=== PATIENT | female | born 1940 | race Caucasian/White ===

== ENCOUNTER 2023-10-18 23:54 | Inpatient (IN) | payer MEDICARE, OTHER, SELFPAY ==
[2023-10-18 17:43] VITALS: BP 146/72
--- NOTE | 2023-10-18 19:02 | ED.GENMED ---
History of Present Illness
General
Chief Complaint: Abdominal Pain
Source: patient
Exam Limitations: none
Time Seen by Provider: 10/18/23 18:55
Nursing documentation reviewed up to this point in time: agreed with
History of Present Illness
History of Present Illness:
pt is a 83 y/o F wth h/o dementia
here with abd pain in the site of known ventral hernia
previous partial colectomy [place] with revearsal by osmani and subsequent hernia repair osmani
chronic constipation, chronic UTIs and c/o chronic abd pain
here with hernia pain x 2 days, last bm 2 days holder and dec appetite
she self caths and is prone to utis
pt takes tramadol and tylenol for pain chronically
was at [facility] 2 mo ago and dx with new hernia which was evaluated by CT scan and not incarcerated
she has appt with her surgeon in a few weeks
no vomiting, fever, chills, nausea.
her daughter in law talked to the staff at the [facility] she [facility] at and they decided to bring her 'to be safe'
with her dementia, they aren't really sure whats new or chronic
Past History
Past History
ED Past Medical History: Asthma, HTN, Hypercholesterolemia, Psychiatric (Anxiety, depression), Other (Diverticulitis) and Other (UTI, anemia)
ED Past Surgical History: Bowel resection, Gynecological (Hysterectomy), Orthopedic (left hip, right elbow), Urological and Other (Adan procedure for perforated colon, cataracts)
Social History
Tobacco: Non-smoker
Alcohol: None
Drug: None
Personal:
Living: assisted living
Review of Systems
Review of Systems
Allergies reviewed?: Yes
All Other Systems: Not applicable
Phy Exam
Physical Exam
Physical Exam:
GENERAL: Alert , in no apparent distress
EYE: pupils equal and reactive
NECK: Supple
ENT: o/p clr, mmm.
CARDIAC: Regular rate and rhythm .
LUNGS: Clear breath sounds bilaterally, no acute respiratory distress, no wheezes/rales/rhonchi
ABDOMEN: Soft, MILD TENDERNESS L SIDED VENTRAL SMALL HERNIA, EASILY REDUCIBLE, no r/g, no cvat, normal bowel sounds
NEUROLOGICAL: Alert and oriented x 1-2, confusion, short term memory loss, movin all extremities; nmo weakness
SKIN: Warm and dry, skin intact.
MUSCULOSKELETAL: No edema, well perfused. neg diomedes's sign
PSYCH: Normal and appropriate interaction. cooperative, dementia
Course
Orders/Labs/Results
Orders:
Orders
10/18/23 19:15
CT Abd/pel W Iv And Oral Contr Urgent
Comment:
Reason For Exam: previous colectomy, hernia, pain
Iohexol [Omnipaque] See Protocol PO NOW STA
10/18/23 19:23
Complete Blood Count/With Diff Urgent
Comprehensive Metabolic Panel Urgent
Osmolality, Random Urine Urgent
Date Specimen was Collected: 10/18/23
Time Specimen was Collected: 19:16
Comment: ADD ON
Serum Osmolality Urgent
Comment: ADD ON
Urinalysis Reflex To Culture Urgent
Date Specimen was Collected: 10/18/23
Time Specimen was Collected: 19:16
Urine Microscopic Reflex Cult Urgent
Urine Sodium Urgent
Date Specimen was Collected: 10/18/23
Time Specimen was Collected: 19:16
Comment: ADD ON
Urine Culture Urgent
ELIAS Source: U
Specimen Description:
Date Specimen was Collected: 10/18/23
Time Specimen was Collected: 19:16
10/18/23 20:51
Add On- LAB Urgent
Tests Added?: serum osmolality
10/18/23 20:52
Electrocardiogram (*1) Urgent
Reason for Study: Other
Other Reason for Exam: hyperkalemia
EKG- Treatment ONCE
10/18/23 20:53
Add On- LAB Urgent
Tests Added?: urine osmolality, urine sodium
10/18/23 21:09
COVID-19 Antigen Urgent
Source: Nasal Swab
10/18/23 21:26
CefTRIAXone [Rocephin] 1,000 mg IV NOW STA
10/18/23 23:00
Flush (0.9% Sodium Chloride) [Flush (Nss)] See Dose Instructions IV PER PROTOCOL
Abnormal Lab Results
10/18/23
19:23
MCH 31.2 H pg
(27.0-31.0)
Abs Immat Gran (auto) 0.2 H 10^3/uL
(0-0.05)
Absolute Monos (auto) 1.2 H 10^3/uL
(0.1-0.6)
Immature Gran % 2.2 H %
(0-0.5)
Monocytes % 13.1 H %
(1.7-9.3)
Sodium 123 L mmol/L
(135-145)
Potassium 5.4 H mmol/L
(3.5-5.1)
Chloride 93 L mmol/L
(98-107)
Glucose 120 H mg/dl
(70-99)
Serum Osmolality 262 L mOsm/kg
(275-300)
AST 84 H U/L
(14-36)
ALT 53 H U/L
(0-35)
Ur Occult Blood Reflex 1+ A
(Negative)
Leukocyte Esterase Rfl 2+ A
(Negative)
Urine RBC 3-6 A /HPF
(0-2)
Urine WBC (Reflex) >100 A /HPF
(0-5)
Urine Osmolality 225 L mOsm/kg
(300-900)
Urine Sodium 28 L mmol/L
(30-90)
Urine Albumin (Reflex) 1+ A
(Neg - Trace)
10/18/23 19:23
10/18/23 19:23
Vital Signs
Initial and Last Documented VS:
Initial Vital Signs
Temp Pulse Resp BP Pulse Ox
98.8 F 77 17 146/72 95
10/18/23 17:43 10/18/23 17:43 10/18/23 17:43 10/18/23 17:43 10/18/23 17:43
Last Documented Vital Signs
Temp Pulse Resp BP Pulse Ox
98.3 F 80 13 140/77 95
10/19/23 01:34 10/19/23 01:15 10/19/23 01:15 10/19/23 01:00 10/19/23 01:15
MDM/Problems Addressed
Differential Diagnosis Includes:
uti, hernia, incarcerated hernia, bowel obstrucion, constipation,
MDM/Problems Addressed:
83 y/o F
remote bowel resection and colostomy with reversal
hernia repair ostomy site
now with recurrent hernia in that site x 2 mo
has had chrnoic discomfort but also is difficult historian due to dementia
cnostipation chronically as well
no fever, vomiting
family was thinkning she should be checked, she also gets UTIS, self caths
on exam she had an esasily reducible but tender L abdominal ventral hernia
normal bowel sounds
othwrise nontender
she is confused at baseline, repeats herself, seems unsure of answers
her labs show hyponatremia, mild hyperkalemia
uti
and ct shows the hernia with bowel
suggestion of possibly incarceration though her exam is not suggestive of incarceration
d/w neprhologist who recommended hypertonic saline, i did notify hositpalist
also notified marine resource economist surgeon dr. silva regarding the ct findings
*Critical Care Note
Total Time (30-74mins, 75-104mins- exclusive of procedures): Not Applicable
ED Attending Note
-
Portions of this chart may have been created with voice recognition software.� Occasional wrong word or��sound alike� substitutions may have occurred due to the inherent limitations of voice recognition software.
Discharge Plan
Departure
Patient Disposition: Admit
Date of Disposition: 10/18/23
Time of Disposition: 23:15
Admit to: Med/Surg
Presentation/result/management discussed w/ accepting MD/DO: Hospitalist
Condition: Fair
Covid-19: Not Applicable
Discharge Problem:
Abdominal hernia, UTI (urinary tract infection), Hyponatremia
Interventions
Interventions:
*Risk Screen - Suicide Last Done: 10/18/23 18:14
*General Assessment Last Done: 10/18/23 18:14
*Neglect/Abuse Screening Last Done: 10/18/23 18:14
ED- Fall Risk Assessment Last Done: 10/18/23 18:14
*ED COVID-19 Vaccine History Last Done: 10/19/23 01:25
*Nursing Disposition Last Done: 10/19/23 01:28
HW-Tjhkgo-Dufllnelgd Assessment Last Done: 10/18/23 18:14
Discharge Date and Time
Discharge Date/Time: 10/19/23 01:30
[2023-10-18] MEDS: OMNIPAQUE 50 ML PO (19:40)
[2023-10-18 20:20] VITALS: BP 142/76
[2023-10-18 20:28] LABS: % Basophils 0.6 % (0-2); % Eosinophils 2.1 % (0-6); % Immature Granulocytes 2.2 % (0-0.5); % Lymphocytes 23.3 % (20.5-51.1); % Monocytes 13.1 % (1.7-9.3); % Neutrophils 58.7 % (42.2-75.2); Absolute Basophils 0.1 10^3/uL (0-0.2); Absolute Eosinophils 0.2 10^3/uL (0-0.7); Absolute Immature Granulocytes 0.2 10^3/uL (0-0.05); Absolute Lymphocytes 2.1 10^3/uL (1.2-3.4); Absolute Monocytes 1.2 10^3/uL (0.1-0.6); Absolute Neutrophils 5.3 10^3/uL (1.4-6.5); Hematocrit 37.2 % (37.0-47.0); Hemoglobin 13.4 g/dL (12.0-16.0); Mean Corpuscular Hgb 31.2 pg (27.0-31.0); Mean Corpuscular Volume 86.5 fL (81.0-99.0); Nucleated Red Blood Cells % 0 %; Platelet Count 275 10^3/uL (130-400); Red Cell Dist. Width 12.5 % (11.5-14.5)
[2023-10-18 20:42] LABS: ALT (SGPT) 53 U/L (0-35); AST (SGOT) 84 U/L (14-36); Albumin 4.6 g/dl (3.5-5.0); Alkaline Phosphatase 77 U/L (38-126); Blood Urea Nitrogen 14 mg/dl (7-17); Calcium 9.2 mg/dl (8.4-10.2); Carbon Dioxide 22 mmol/L (22-30); Chloride 93 mmol/L (98-107); Glucose 120 mg/dl (70-99); Potassium 5.4 mmol/L (3.5-5.1); Sodium 123 mmol/L (135-145); Total Bilirubin 0.5 mg/dl (0.2-1.3); Total Protein 7.3 g/dl (6.3-8.2); eGFR > 60.00
[2023-10-18 20:47] LABS: Urine Albumin 1+ (Neg - Trace); Urine Bilirubin Negative (Negative); Urine Character Slightly Cloudy (Clear); Urine Color Yellow; Urine Glucose Negative (Negative); Urine Ketone Negative (Negative); Urine Leukocyte 2+ (Negative); Urine Nitrite Negative (Negative); Urine Occult Blood 1+ (Negative); Urine Specific Gravity 1.015 (<1.030); Urine Urobilinogen Negative (Neg - 1+)
[2023-10-18 20:55] LABS: Urine White Cell >100 /HPF (0-5)
[2023-10-18 21:10] LABS: Osmolality Serum 262 mOsm/kg (275-300); Osmolality Urine 225 mOsm/kg (300-900)
[2023-10-18 21:19] VITALS: BP 136/74
[2023-10-18 21:19] LABS: Urine Sodium 28 mmol/L (30-90)
[2023-10-18 21:32] LABS: COVID-19 Antigen Negative (Negative)
--- NOTE | 2023-10-18 21:43 | HPS.HSE ---
Family Physician
-
Family Physician: NOT KNOW UNKNOWN - PT DOES
Chief Complaint
-
Abdominal Pain x 2 days with confusion
History of Present Illness
83yo F with PMH Asthma, HTN, HLD, Ventral Hernia, Chronic Constipation, Urinary Retention/Self Caths, UTIs, Diverticulitis, Anemia, Anxiety/Depression/Dementia, Chronic Pain presents to ER from [facility] with complaint of
abdominal pain. Pt is a poor historian 2/2 dementia despite AAOx3 status. I spoke with [id number] but who also has limited histor. Pt has history of multiple abdominal surgeries including hartmanns with colostomy and reversal c/b ventral
hernia. No surgeries performed recently but she is following with a surgeon at [place] (does not recall name). Pt reports 5/10 left sided abdominal pain without N/V. Denies inability to take PO. Denies decreased fluid intake or excessive water
drinking. Pt does straight cath 2-3x daily. Denies any hematuria or known hx bladder mass, following with Dr. Bullock. Is on Chronic macrobid for UTI. Denies fever, chills, chest pain, palps, wheezing, cough, sob, dysuria, calf or leg pain/swelling.
Pt presents with V.S.S. CBC wnl. Na 123, K 5.4, BUN/Cr 14/0.7, BG 120, SOsm 262, Mariah 28, UOsm 225, AST/ALT 84/53, UA without bacteria, > 100WBC. COVID (-). Gen Surgery notified in ER. Case D/W nephrology recommending figueroa insertion and 200cc of 3%
NS @ 20cc/hr. 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
CT A/P IMPRESSION
Bowel containing left ventral hernia as described above at previous ostomy site. Decreased in size. New associated mild fluid. Developing incarceration/strangulation should be considered
Additional small fat-containing ventral hernias. No evidence of acute pathology with these. Increase in size and number.
Left bladder wall thickening and enhancement as described above raising concern for a mural mass. New. Direct visualization recommended.
Hepatic fatty infiltration. Stable
Simple right ovarian cyst. Stable. Uncommon in postmenopausal females.
Moderate fecal material throughout the colon. Stable
Tiny bilateral pleural effusions. Progressed on the left. Improved on the right.
Medical History
Past Medical History
Past Medical History: Reports Other (Asthma, HTN, HLD, Ventral Hernia, Chronic Constipation, Urinary Retention/Self Caths, UTIs, Diverticulitis, Anemia, Anxiety/Depression/Dementia, Chronic Pain)
Past Surgical History: Reports Other ([place] Procedure s/p Reversal c/b Ventral Hernia, Hysterectomy, Left Hip / Right Elbow Orthopedic Surgery, Cataracts)
Social History
Unable to obtain full social history at this time due to: Dementia
Tobacco: Non-smoker
Alcohol: None
Drug: None
Personal:
Living: Assisted Living
Family History
Family History: Not pertinent
Allergies / Home Medications
Allergies reflects when Allergies were last updated in [employer].
Home Medications with original date entered in [employer]
Allergy/Medication List:
Allergies
Allergy/AdvReac Type Severity Reaction Status Date / Time
acetaminophen [From Percocet] Allergy Hives Verified 10/18/23 17:42
belladonna alkaloids Allergy Unknown Verified 10/18/23 17:42
ciprofloxacin [From Cipro] Allergy Unknown Verified 10/18/23 17:42
codeine Allergy Unknown Verified 10/18/23 17:42
ezetimibe [From Vytorin] Allergy Unknown Verified 10/18/23 17:42
gabapentin Allergy Unknown Verified 10/18/23 17:42
oxycodone [From Percocet] Allergy Hives Verified 10/18/23 17:42
plecanatide [From Trulance] Allergy Unknown Verified 10/18/23 17:49
propoxyphene Allergy Hives Verified 10/18/23 17:42
[From Darvocet-N]
sertraline Allergy Unknown Verified 10/18/23 17:42
simvastatin [From Vytorin] Allergy Unknown Verified 10/18/23 17:42
tramadol Allergy Unknown Verified 10/18/23 17:42
Influenza Virus Vaccines AdvReac Unknown Verified 10/18/23 17:42
Home Medications
alprazolam 0.5 mg tablet 0.5 mg PO HSPRN PRN anxiety 10/12/21
aluminum-magnesium hydroxide 200 mg-200 mg/5 mL oral suspension 20 ml PO Q8HPRN PRN indigestion 10/12/21
benzonatate 100 mg capsule 100 mg PO Q8HPRN PRN cough 10/12/21
carboxymethyl 0.5 %-glycerin 1 %-polysorb 80 0.5 %-PF eye dropperette (Refresh Optive Santy-3 (PF)) 2 drp BOTH EYES BID Eye condition 10/12/21
cetirizine 10 mg tablet 10 mg PO DAILY Allergies 10/12/21
estradiol 10 mcg vaginal insert 10 mcg vaginal WESA@2200 Hormonal agent 10/12/21
eszopiclone 3 mg tablet 3 mg PO HS Sleep 10/12/21
losartan 25 mg tablet 25 mg PO DAILY Blood Pressure 10/12/21
nitrofurantoin macrocrystal 100 mg capsule 100 mg PO DAILY Urinary Issue 10/12/21
ondansetron HCl 4 mg tablet 4 mg PO [id number] PRN nausea 10/12/21
rosuvastatin 5 mg tablet 5 mg PO HS High Cholesterol 10/12/21
sennosides 8.6 mg tablet (Senokot) 8.6 mg PO QPM Constipation 10/12/21
simethicone 125 mg tablet 125 mg PO QID gas 10/12/21
acetaminophen 500 mg tablet 1,000 mg PO TID MILD PAIN 08/29/22
bismuth subsalicylate 262 mg/15 mL oral suspension 524 mg PO Q6HPRN PRN diarrhea 08/29/22
dextromethorphan HBr 30 mg/5 mL oral liquid 60 mg PO [id number] PRN cough 08/29/22
donepezil 5 mg tablet 5 mg PO HS dementia 08/29/22
fluoride (sodium) 1.1 % dental paste (PreviDent 5000 Dry Mouth) 1 applic dental BID dental care 08/29/22
ibuprofen 200 mg capsule 400 mg PO BID Pain 08/29/22
lidocaine HCl 2 % mucosal jelly in applicator 1 applic topical Q8HPRN PRN hemorrhoid pain 08/29/22
pantoprazole 20 mg tablet,delayed release 40 mg PO DAILY Gastrointestinal Issue 08/29/22
polyethylene glycol 3350 17 gram oral powder packet 8.5 grams PO DAILYPRN PRN constipation 08/29/22
tramadol 50 mg tablet 50 mg PO [id number] PRN severe pain 08/29/22
Benefiber (wheat dextrin) 1 tbsp PO [id number] PRN constipation 10/18/23
ascorbic acid (vitamin C) 500 mg tablet 500 mg PO DAILY 10/18/23
bisacodyl 10 mg rectal suppository (Dulcolax (bisacodyl)) 10 mg [place] DAILYPRN PRN constipation 10/18/23
docusate sodium 100 mg capsule 100 mg PO BIDPRN PRN constipation 10/18/23
hydrocortisone 1 % topical cream 1 applic topical PRN PRN skin conditions 10/18/23
loperamide 2 mg capsule 2 mg PO QIDPRN PRN diarrhea 10/18/23
memantine 10 mg tablet 10 mg PO BID 10/18/23
mirtazapine 45 mg tablet 45 mg PO HS 10/18/23
multivitamin with minerals-folic acid 120 mcg chewable tablet (Women's Multivitamin Gummies) 2 tab PO DAILY 10/18/23
oxybutynin chloride 5 mg tablet 5 mg PO BID 10/18/23
Review of Systems
-
A 12 point ROS was completed and negative except as noted: Yes
Physical Exam
Vital Signs
Vital Signs
Temp Pulse Resp BP Pulse Ox
98.8 F 70 18 136/74 96
10/18/23 17:43 08/02/24 21:19 10/18/23 21:19 10/18/23 21:19 10/18/23 21:19
Physical Exam
General: No Apparent Distress and Comfortable
HEENT: NormoCephalic, Atraumatic and Other (Dry MM. PERRLA. Uvula Midline. )
Respiratory: Clear; No Wheezes, Rales or Rhonchi
Cardiac: S1/S2 and Regular Rhythm
GI: Soft, Normal Bowel Sounds and Other (left sided ventral hernia, reducible. Moderate TTP. No discoloration. ); No Distended or Organomegaly
Genito-urinary: No costovertebral tender
Musculoskeletal: No Clubbing and No Cyanosis; No Edema, Left Lower Extremity or Edema, Right Lower Extremity
Skin: Warm and Dry; No Rash
Neuro: Awake, Alert, AO x 3 (AOx1 (knows name, baseline)), No Motor Deficits, Nonfocal/grossly intact and Other (pupils dilated (s/p eye exam); left eye full ptosis and full closure, cannot adduct left eye; diplopia on lateral gaze; no nystagmus, no
facial asymmetry, no pronator drift, 5/5 strength upper and lower extremities )
Psych: Calm
Laboratory Results
-
10/18/23 19:23
10/18/23 19:23
Laboratory Results
Total Bilirubin 0.5 mg/dl (0.2-1.3) 10/18/23 19:23
AST 84 U/L (14-36) H 10/18/23 19:23
ALT 53 U/L (0-35) H 10/18/23 19:23
Alkaline Phosphatase 77 U/L (38-126) 10/18/23 19:23
Data Reviewed
-
Diagnostic Radiology: Image Personally Visualized and interpreted
CT Scan: Image Personally Visualized and interpreted
Lab Data: Labs Reviewed by me
Old Records: Reviewed
Impression/Plan
-
Hyponatremia, Severe
- Na 123 on admission.
- Urine Osm 262, Ua Na 28, U Osm 225, hypoosmotic hyponatremia
- Holding tramadol and nsaids
- Goal 6-8 meq/24hr improvement.
- Nephrology consulted. 3% NS - 200cc total at 20cc/hr. Trend Q4h BMP
- NPO for now. 1200cc fluid restriction when advanced.
- Figueroa inserted for critical I&O monitoring
Pt presents with V.S.S. CBC wnl. Na 123, K 5.4, BUN/Cr 14/0.7, BG 120, SOsm 262, Mariah 28, UOsm 225, AST/ALT 84/53, UA without bacteria, > 100WBC. COVID (-). Gen Surgery notified in ER. Case D/W nephrology recommending figueroa insertion and 200cc of 3%
NS @ 20cc/hr. 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
AMS / Hx Dementia
- AAOx3 with poor insight and knowledge of medical history
- Likely acute/chronic exacerbated by hyponatremia. Trend for improvement
- Continue home donepezil
Abdominal Pain
Constipation
Ventral Hernia
- CT A/P IMPRESSION
Bowel containing left ventral hernia as described above at previous ostomy site. Decreased in size. New associated mild fluid. Developing incarceration/strangulation should be considered
Additional small fat-containing ventral hernias. No evidence of acute pathology with these. Increase in size and number.
Left bladder wall thickening and enhancement as described above raising concern for a mural mass. New. Direct visualization recommended.
Hepatic fatty infiltration. Stable
Simple right ovarian cyst. Stable. Uncommon in postmenopausal females.
Moderate fecal material throughout the colon. Stable
Tiny bilateral pleural effusions. Progressed on the left. Improved on the right.
- Obtain Stat LA and trend for AM
- AST/ALT 84/53. Trend for AM with Coags. Hold Statin
- Consult Gen Surgery
- Initiate bowel regimen when appropriate from surgical standpoint
- Obtain Urine Legionella for completeness in setting of hyponatremia/abdominal pain
Transaminitis
- AST/ALT 84/53. Likely hypoperfusion injury in setting of dehydration
- Trend LFTs. Hold statin.
Bladder Mass - CT imaging reviewed. Consult urology. Family denies any known history.
HTN/HLD
- Stable on home losartan
- Hold statin 2/2 mild transaminitis
Asthma - Stable on home Flonase/albuterol/IS.
Urinary Retention with Chronic UTI history
- Hx Recurrent UTI. Afebrile. No leukocytosis
- UA consistent with sterile pyuria. No indication for abx at this time.
- Continue prophylactic macrobid
- Straight caths 2-3x daily. Figueroa inserted per nephro recs for hyponatremia.
Anxiety/Depression
- Continue home Remeron and risperidone
Chronic Pain
- Hold tramadol and nsaids 2/2 hyponatremia
DVT Ppx: Lovenox
Diet: NPO
Code Status: Full Code. Confirmed with DIL
- Patient states her son Darian Jain and MIRANDA Floresise [place] (nurse) make decisions for her.
[2023-10-18] MEDS: ROCEPHIN 1000 MG IV (21:50)
[2023-10-18 23:13] VITALS: BP 155/83
[2023-10-19] VITALS (16 sets, daily range): BP systolic 118–168; BP diastolic 49–83; PULSE 82; O2SAT 95; BMI 29.7; BMI 28.7
[2023-10-19 00:43] LABS: Lactic Acid 1.6 mmol/L (0.7-2.0)
[2023-10-19 00:44] LABS: Blood Urea Nitrogen 11 mg/dl (7-17); Calcium 8.1 mg/dl (8.4-10.2); Carbon Dioxide 21 mmol/L (22-30); Chloride 97 mmol/L (98-107); Estimated Creatinine Clearance 69 ml/min; Glucose 113 mg/dl (70-99); Potassium 4.4 mmol/L (3.5-5.1); Sodium 126 mmol/L (135-145); eGFR > 60.00
[2023-10-19] MEDS: SODIUM CHLORIDE 3% 200 IV (01:02)
[2023-10-19 01:12] LABS: Creatine Phosphokinase 245 U/L (30-135)
[2023-10-19 04:01] LABS: % Basophils 0.7 % (0-2); % Immature Granulocytes 2.5 % (0-0.5); % Lymphocytes 18.9 % (20.5-51.1); % Monocytes 11.8 % (1.7-9.3); % Neutrophils 64.1 % (42.2-75.2); Absolute Basophils 0.1 10^3/uL (0-0.2); Absolute Eosinophils 0.1 10^3/uL (0-0.7); Absolute Immature Granulocytes 0.2 10^3/uL (0-0.05); Absolute Lymphocytes 1.3 10^3/uL (1.2-3.4); Absolute Monocytes 0.8 10^3/uL (0.1-0.6); Absolute Neutrophils 4.4 10^3/uL (1.4-6.5); Hematocrit 38.4 % (37.0-47.0); Hemoglobin 13.6 g/dL (12.0-16.0); Mean Corp Hgb Conc. 35.4 g/dL (33.0-37.0); Mean Corpuscular Hgb 31.7 pg (27.0-31.0); Mean Corpuscular Volume 89.5 fL (81.0-99.0); Mean Platelet Volume 8.6 fL (7.4-10.4); Nucleated Red Blood Cells % 0 %; Platelet Count 233 10^3/uL (130-400); Red Blood Cell Count 4.29 10^6/uL (4.20-5.40); Red Cell Dist. Width 12.3 % (11.5-14.5); White Blood Cell Count 6.8 10^3/uL (4.8-10.8)
[2023-10-19 04:10] LABS: APTT 33.3 Sec (23.4-35.0); INR 1.04; PT 13.4 Sec (11.4-14.6)
--- NOTE | 2023-10-19 04:15 | PTCARENOTE ---
Pt received as IMU admission for hyponatremia and abd pain. AAOx3. Able with assist to walk from stretcher to bed. Pleasantly confused/forgetful/flat. Repeats herself at times. 3% NS infusing at 20ml/hr for total of 200mls. Admits to [facility] pain 09/24
but denies need for pain medicine. Hypoactive BS on left side. Tender to touch. SR on CM. Afebrile. VSS. Stearns intact from ED draining yellow urine. Skin intact. Rest of assessment as documented. AM labs obtained and sent. Bed alarm on and working.
Oriented to room and surroundings. Call saab remains within reach. Will continue to monitor.
[2023-10-19 04:19] LABS: ALT (SGPT) 52 U/L (0-35); AST (SGOT) 73 U/L (14-36); Albumin 4.3 g/dl (3.5-5.0); Alkaline Phosphatase 85 U/L (38-126); Blood Urea Nitrogen 10 mg/dl (7-17); Calcium 9.1 mg/dl (8.4-10.2); Carbon Dioxide 25 mmol/L (22-30); Chloride 96 mmol/L (98-107); Estimated Creatinine Clearance 68 ml/min; Glucose 117 mg/dl (70-99); Lipase 177 U/L (23-300); Sodium 128 mmol/L (135-145); Total Bilirubin 0.5 mg/dl (0.2-1.3); Total Protein 6.8 g/dl (6.3-8.2); eGFR > 60.00
[2023-10-19 04:21] LABS: Blood Urea Nitrogen 11 mg/dl (7-17); Calcium 9.1 mg/dl (8.4-10.2); Carbon Dioxide 24 mmol/L (22-30); Chloride 96 mmol/L (98-107); Estimated Creatinine Clearance 68 ml/min; Glucose 115 mg/dl (70-99); Sodium 128 mmol/L (135-145); eGFR > 60.00
[2023-10-19 04:23] LABS: Blood Urea Nitrogen 10 mg/dl (7-17); Calcium 9.1 mg/dl (8.4-10.2); Carbon Dioxide 24 mmol/L (22-30); Chloride 96 mmol/L (98-107); Estimated Creatinine Clearance 68 ml/min; Glucose 116 mg/dl (70-99); Potassium 5.1 mmol/L (3.5-5.1); Sodium 128 mmol/L (135-145); eGFR > 60.00
[2023-10-19 04:51] LABS: TSH 2.33 uIU/ml (0.47-4.68)
--- NOTE | 2023-10-19 04:58 | W.PN.UPDATE ---
Update Note
Progress Note Update
Review of Na trends on 3% NS @ 20cc/hr. Admission 123 -> 126 -> 128. Given rapid correction discussed with nursing plan to stop 3%NS and give 250cc D5W bolus. Will follow repeat BMPs before initiating further treatment. Appreciate nephro recs to
follow.
[2023-10-19] MEDS: D5W 250 IV (05:10)
--- NOTE | 2023-10-19 05:17 | PTCARENOTE ---
Pt's Na+ this am 128 up from 123 when in ED where 3% NS infusion initiated. Received TT from Dr Ruffin to stop 3% and give 250ml bolus of D5W over 1hr. 3% stopped and D5W infusing as ordered. Will continue to monitor.
--- NOTE | 2023-10-19 08:52 | W.CON.NEPH ---
Consultation
-
Date/Time Consultation Requested: 10/19/2023 7:30 AM
Date/Time Consultation Performed: 10/19/2023 8:55 AM
Requesting Provider: Dr. Chao
Performing Provider: Dr. Noel
Reason for Consultation: Hyponatremia
Medical History
-
Chief Complaint: Hyponatremia
History of Present Illness:
83yo F with PMH Asthma, HTN (maintain on losartan) HLD (on statin therapy), Ventral Hernia, Chronic Constipation, Urinary Retention(/Self Caths), UTIs, Diverticulitis, Anemia, Anxiety/Depression/Dementia, Chronic Pain presents to ER from [facility]
assisted living facility with complaint of abdominal pain. Pt is a poor historian 2/2 dementia despite AAOx3 status. I spoke with [id number] but who also has limited histor. Pt has history of multiple abdominal surgeries including hartmanns
with colostomy and reversal c/b ventral hernia. No surgeries performed recently but she is following with a surgeon at [place] (does not recall name). Pt reports 5/10 left sided abdominal pain without N/V. Denies inability to take PO. Denies
decreased fluid intake or excessive water drinking. Pt does straight cath 2-3x daily. Denies any hematuria or known hx bladder mass, following with Dr. Bullock. Is on Chronic macrobid for UTI. Denies fever, chills, chest pain, palps, wheezing,
cough, sob, dysuria, calf or leg pain/swelling.
Pt presents with V.S.S. CBC wnl. Na 123, K 5.4, BUN/Cr 14/0.7, BG 120, SOsm 262, Mariah 28, UOsm 225, AST/ALT 84/53, UA without bacteria, > 100WBC. COVID (-). Gen Surgery notified in ER. Case D/W nephrology recommending figueroa insertion and 250cc of 3%
NS @ 20cc/hr. 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
Past Medical History
(Asthma, HTN, HLD, Ventral Hernia, Chronic Constipation, Urinary Retention/Self Caths, UTIs, Diverticulitis, Anemia, Anxiety/Depression/Dementia, Chronic Pain)
Social History
Tobacco: Non-Smoker
Alcohol: None
Family History
No CKD
Allergies / Home Medications
Allergy/AdvReac Type Severity Reaction Status Date / Time
acetaminophen [From Percocet] Allergy Hives Verified 10/18/23 17:42
belladonna alkaloids Allergy Unknown Verified 10/18/23 17:42
ciprofloxacin [From Cipro] Allergy Unknown Verified 10/18/23 17:42
codeine Allergy Unknown Verified 10/18/23 17:42
ezetimibe [From Vytorin] Allergy Unknown Verified 10/18/23 17:42
gabapentin Allergy Unknown Verified 10/18/23 17:42
oxycodone [From Percocet] Allergy Hives Verified 10/18/23 17:42
plecanatide [From Trulance] Allergy Unknown Verified 10/18/23 17:49
propoxyphene Allergy Hives Verified 10/18/23 17:42
[From Darvocet-N]
sertraline Allergy Unknown Verified 10/18/23 17:42
simvastatin [From Vytorin] Allergy Unknown Verified 10/18/23 17:42
tramadol Allergy Unknown Verified 10/18/23 17:42
Influenza Virus Vaccines AdvReac Unknown Verified 10/18/23 17:42
�Medication �Instructions �Recorded �Confirmed �Type
alprazolam 0.5 mg tablet 0.5 mg PO HSPRN PRN anxiety 10/12/21 10/18/23 History
aluminum-magnesium hydroxide 200 20 ml PO Q8HPRN PRN indigestion 10/12/21 10/18/23 History
mg-200 mg/5 mL oral suspension
benzonatate 100 mg capsule 100 mg PO Q8HPRN PRN cough 10/12/21 10/18/23 History
carboxymethyl 0.5 %-glycerin 1 2 drp BOTH EYES BID Eye condition 10/12/21 10/18/23 History
%-polysorb 80 0.5 %-PF eye
dropperette (Refresh Optive Santy-3
(PF))
cetirizine 10 mg tablet 10 mg PO DAILY Allergies 10/12/21 10/18/23 History
estradiol 10 mcg vaginal insert 10 mcg vaginal WESA@2200 Hormonal 10/12/21 10/18/23 History
agent
eszopiclone 3 mg tablet 3 mg PO HS Sleep 10/12/21 10/18/23 History
losartan 25 mg tablet 25 mg PO DAILY Blood Pressure 10/12/21 10/18/23 History
nitrofurantoin macrocrystal 100 mg 100 mg PO DAILY Urinary Issue 10/12/21 10/18/23 History
capsule
ondansetron HCl 4 mg tablet 4 mg PO [id number] PRN nausea 10/12/21 10/18/23 History
rosuvastatin 5 mg tablet 5 mg PO HS High Cholesterol 10/12/21 10/18/23 History
sennosides 8.6 mg tablet (Senokot) 8.6 mg PO QPM Constipation 10/12/21 10/18/23 History
simethicone 125 mg tablet 125 mg PO QID gas 10/12/21 10/18/23 History
acetaminophen 500 mg tablet 1,000 mg PO TID MILD PAIN 08/29/22 10/18/23 History
bismuth subsalicylate 262 mg/15 mL 524 mg PO Q6HPRN PRN diarrhea 08/29/22 10/18/23 History
oral suspension
dextromethorphan HBr 30 mg/5 mL 60 mg PO [id number] PRN cough 08/29/22 10/18/23 History
oral liquid
donepezil 5 mg tablet 5 mg PO HS dementia 08/29/22 10/18/23 History
fluoride (sodium) 1.1 % dental 1 applic dental BID dental care 08/29/22 10/18/23 History
paste (PreviDent 5000 Dry Mouth)
ibuprofen 200 mg capsule 400 mg PO BID Pain 08/29/22 10/18/23 History
lidocaine HCl 2 % mucosal jelly in 1 applic topical Q8HPRN PRN 08/29/22 10/18/23 History
applicator hemorrhoid pain
pantoprazole 20 mg tablet,delayed 40 mg PO DAILY Gastrointestinal 08/29/22 10/18/23 History
release Issue
polyethylene glycol 3350 17 gram 8.5 grams PO DAILYPRN PRN 08/29/22 10/18/23 History
oral powder packet constipation
tramadol 50 mg tablet 50 mg PO [id number] PRN severe pain 08/29/22 10/18/23 History
Benefiber (wheat dextrin) 1 tbsp PO [id number] PRN constipation 10/18/23 10/18/23 History
ascorbic acid (vitamin C) 500 mg 500 mg PO DAILY 10/18/23 10/18/23 History
tablet
bisacodyl 10 mg rectal suppository 10 mg [place] DAILYPRN PRN constipation 10/18/23 10/18/23 History
(Dulcolax (bisacodyl))
docusate sodium 100 mg capsule 100 mg PO BIDPRN PRN constipation 10/18/23 10/18/23 History
hydrocortisone 1 % topical cream 1 applic topical PRN PRN skin 10/18/23 10/18/23 History
conditions
loperamide 2 mg capsule 2 mg PO QIDPRN PRN diarrhea 10/18/23 10/18/23 History
memantine 10 mg tablet 10 mg PO BID 10/18/23 10/18/23 History
mirtazapine 45 mg tablet 45 mg PO HS 10/18/23 10/18/23 History
multivitamin with minerals-folic 2 tab PO DAILY 10/18/23 10/18/23 History
acid 120 mcg chewable tablet
(Women's Multivitamin Gummies)
oxybutynin chloride 5 mg tablet 5 mg PO BID 10/18/23 10/18/23 History
Review of Systems
-
History Source: Patient
All other systems: Negative unless noted
Constitutional: Fatigue
EENT: No Symptoms
Respiratory: No Symptoms
Cardiac: No Symptoms
Abdomen/GI: Abdominal Pain (Left lower quadrant with ventral hernia) and Pain (Left lower quadrant pain)
: Other (Chronic urinary retention requiring straight catheterization twice daily)
Musculoskeletal: No Symptoms
Skin: No Symptoms
Neurological: No Symptoms
Endocrine: No Symptoms
Hematologic/Lymphatic: No Symptoms
Physical Exam
Vital Signs
Vital Signs
Temp Pulse Resp BP Pulse Ox
98.3 F 76 14 138/49 92
10/19/23 03:56 10/19/23 06:00 10/19/23 06:00 10/19/23 06:00 10/19/23 06:00
Lab Results
10/19/23 03:51
WBC 6.8 10^3/uL (4.8-10.8) 10/19/23 03:51
RBC 4.29 10^6/uL (4.20-5.40) 10/19/23 03:51
Hgb 13.6 g/dL (12.0-16.0) 10/19/23 03:51
Hct 38.4 % (37.0-47.0) 10/19/23 03:51
Plt Count 233 10^3/uL (130-400) 10/19/23 03:51
eGFR > 60.00 10/19/23 03:50
eGFR > 60.00 10/19/23 03:50
eGFR > 60.00 10/19/23 03:50
Albumin 4.3 g/dl (3.5-5.0) 10/19/23 03:50
Physical Exam
General: AOx3, Nontoxic , NAD
HEENT: PERRL, EOMI, Anicteric, Conjunctivae Clear, Ear/Nose Intact, Hearing Normal, Oropharynx Clear/Moist, Dentition Intact, Facial Symmetry, Neck Supple, Neck: Trachea Midline, No JVD and No Thyromegaly, no Bruits
Respiratory: Clear to auscultation bilaterally with normal lung exersion
Cardiac: S1/S2 and Regular Rate/Rhythm
Breast: Deferred by me
Abdomen: Soft, tender at left lower quadrant with ventral herniation, nondistended, Normal Bowel Sounds and No Hepatosplenomegaly
Rectal: Deferred by Provider
Genito-urinary: No Costovertebral Tenderness
Extremities: No Clubbing, No Cyanosis and No Edema
Skin: No Rash or open lesions
Neuro: Nonfocal/Grossly Intact, CN II-XII (Intact) and Strength (Musculoskeletal exam 5 out of 5 both upper and lower extremities)
Hematologic/Lymphatic: No Cervical Lymphadenopathy, No Submandibular Lymphadenopathy and No Supraclavicular Lymphadenopathy
Psych: Mood/afflect pleasant, Insight/judgement good and Appropriate
Vascular: plus 1 pedal and radial pulses
Data Reviewed
-
CT Scan: Report Reviewed by me (CT reviewed: Left ventral hernia, no hydronephrosis)
Medical Tests (Nuc Med, Echo etc): Other (EKG reviewed normal sinus rhythm with sinus arrhythmia at 70 bpm per personal review)
Labs: Labs Reviewed by me (BMP CBC, urine osmolality 225)
Old Records: Reviewed (Reviewed previous serum sodium from date 08/30/2022 sodium 135)
Assessment/Plan
-
Impression:
Hyponatremia
Abdominal pain with left ventral hernia
Bladder mass
Dementia
Hypertension
Asthma
Urinary retention with chronic UTI with self-catheterization
Anxiety and depression
Plan:
Hyponatremia:
-Serum sodium from 123-128 following 3% administration
-Maintain fluid restrict once po at 48oz
-Maintain Figueroa catheter
-Urine osmolality of 225 only notes partial excess ADH in setting of hyponatremia
-Recheck lites this afternoon at 3 PM
-I am concerned that hyponatremia may be a function of inadequate urine output due to limited self-catheterization
HTN:
-Okay to maintain losartan once p.o.
[2023-10-19] MEDS: DITROPAN 5 MG PO ×2 (09:29→21:08)
[2023-10-19] MEDS: COZAAR 25 MG PO (09:29)
[2023-10-19] MEDS: PROTONIX 40 MG PO (09:29)
[2023-10-19] MEDS: VITAMIN C 500 MG PO (09:29)
[2023-10-19] MEDS: NAMENDA 10 MG PO ×2 (09:29→21:07)
[2023-10-19] MEDS: MYLICON 120 MG PO ×4 (09:30→22:08)
[2023-10-19] MEDS: TYLENOL 1000 MG PO ×2 (09:32→21:12)
[2023-10-19 09:33] LABS: Blood Urea Nitrogen 10 mg/dl (7-17); Carbon Dioxide 25 mmol/L (22-30); Chloride 97 mmol/L (98-107); Estimated Creatinine Clearance 68 ml/min; Glucose 103 mg/dl (70-99); Potassium 4.8 mmol/L (3.5-5.1); Sodium 128 mmol/L (135-145); eGFR > 60.00
[2023-10-19] MEDS: THERAGRAN 1 TABLET PO (09:34)
[2023-10-19] MEDS: ZYRTEC 10 MG PO (09:35)
[2023-10-19] MEDS: REFRESH CELLUVISC GEL 2 DROPS BOTH EYES ×2 (09:35→21:07)
[2023-10-19] MEDS: MACROBID 100 MG PO (09:35)
--- NOTE | 2023-10-19 11:50 | W.PN.URO.CBU ---
Today's Communication / Plan
-
keep figueroa but may remove anytime but then will need to do cic bid as she does at home
Assessment / Plan
-
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
Diagnosis
-
Date of Service: October 19, 2023
-
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
Post Op Day:
Subjective
-
no gu sxs no hematuira no flank pain
Objective
-
Vital Signs
Temp Pulse Resp BP Pulse Ox
98.4 F 76 14 138/49 92
10/19/23 07:01 10/19/23 06:00 10/19/23 06:00 10/19/23 06:00 10/19/23 06:00
Intake and Output
10/18/23 10/19/23 10/20/23
06:59 06:59 06:59
Output Total 900 / 900
Balance -900 / -900
Output:
Urine, Figueroa 900 / 900
Laboratory Results
10/19/23 03:51
Review of Systems
-
: Difficulty Voiding
Physical Exam
-
General - well developed, well nourished, no acute distress
Chest - clear bilaterally
Abdomen - soft, non-tender, positive bowel sounds, no CVAT, no incisional pain or distention
Genitalia - normal
Rectal - normal
Skin - warm & dry with no rash
Neuro - AOx3, no motor deficits
Extremities - no clubbing, no cyanosis, no edema
Incision - clean, dry
Dressing - clean, dry, intact
Care Review
Data Reviewed
Discussed with: Hospitalist and Nursing
CT Scan: Image Pers Reviewed
--- NOTE | 2023-10-19 14:06 | W.PN.HOSP.TC ---
Today's Communication/Plan
-
monitor bmp
restart diet
maintain figueroa
Assessment / Plan
Assessment / Plan
Physical Exam
General: No Apparent Distress and Comfortable
HEENT: NormoCephalic, Atraumatic and Other (Dry MM. PERRLA. Uvula Midline. )
Respiratory: Clear; No Wheezes, Rales or Rhonchi
Cardiac: S1/S2 and Regular Rhythm
GI: Soft, Normal Bowel Sounds and Other (left sided ventral hernia, reducible. Moderate TTP. No discoloration. ); No Distended or Organomegaly
Genito-urinary: No costovertebral tender
Musculoskeletal: No Clubbing and No Cyanosis; No Edema, Left Lower Extremity or Edema, Right Lower Extremity
Skin: Warm and Dry; No Rash
Neuro: Awake, Alert, AO x 3 (AOx1 (knows name, baseline)), No Motor Deficits, Nonfocal/grossly intact and Other (pupils dilated (s/p eye exam); left eye full ptosis and full closure, cannot adduct left eye; diplopia on lateral gaze; no nystagmus, no
facial asymmetry, no pronator drift, 5/5 strength upper and lower extremities )
Psych: Calm
Hyponatremia, Severe
-Possible SIADH
--Maintain fluid restrict once po at 48oz
-Maintain Figueroa catheter
-Monitor BMP
- Holding tramadol and nsaids
- Goal 6-8 meq/24hr improvement.
-Fluid Restriction
Acute on Chronic Metabolic Encephalopathy
Hx Dementia
- AAOx3 with poor insight and knowledge of medical history
- Likely acute/chronic exacerbated by hyponatremia. Trend for improvement
- Continue home donepezil
Abdominal Pain
Ventral Hernia
- CT A/P IMPRESSION
Bowel containing left ventral hernia as described above at previous ostomy site. Decreased in size. New associated mild fluid.
- Hold Statin
-Monitor LFTs
- Overnight Consuled Gen Surgery: although doubt any surgical intervention at this time; can f/u outpatient
Transaminitis
- AST/ALT 84/53.
- Trend LFTs. Hold statin.
Bladder Mass - CT imaging reviewed.
-Consult urology. Family denies any known history.
-F/u outpatient for cysto
HTN/HLD
- Stable on home losartan
- Hold statin 2/2 mild transaminitis
Asthma - Stable on home Flonase/albuterol/IS.
Urinary Retention with Chronic UTI history
- Hx Recurrent UTI. Afebrile. No leukocytosis
- UA consistent with sterile pyuria. No indication for abx at this time.
- Continue prophylactic macrobid
- Straight caths 2-3x daily. Figueroa inserted per nephro recs for hyponatremia.
Anxiety/Depression
- Continue home Remeron and risperidone
Chronic Pain
- Hold tramadol and nsaids 2/2 hyponatremia
DVT Ppx: Lovenox
Diet: Chol Lowering/48 ox restriction
Code Status: Full Code. Confirmed with DIL
- Patient states her son Darian Jain and MIRANDA Floresise [place] (nurse) make decisions for her.
Anticipated Discharge: > 48 hours
Subjective/Interval History
-
Date of Service: October 19, 2023
no acute events
Objective Data
-
Labs:
Laboratory Results
10/19/23 10/19/23 10/19/23
03:50 03:50 03:50
WBC
Hgb
Hct
Plt Count
PT 13.4
INR 1.04
APTT 33.3
Sodium 128 L 128 L 128 L
Potassium 5.0
Chloride
Carbon Dioxide
BUN
Creatinine
Glucose
Calcium
Total Bilirubin
AST
ALT
Alkaline Phosphatase
10/19/23 10/19/23 10/19/23
03:50 03:50 03:50
WBC
Hgb
Hct
Plt Count
PT
INR
APTT
Sodium
Potassium 5.1 5.0
Chloride 96 L 96 L
Carbon Dioxide
BUN
Creatinine
Glucose
Calcium
Total Bilirubin
AST
ALT
Alkaline Phosphatase
10/19/23 10/19/23 10/19/23
03:50 03:50 03:50
WBC
Hgb
Hct
Plt Count
PT
INR
APTT
Sodium
Potassium
Chloride 96 L
Carbon Dioxide
BUN 11
Creatinine
Glucose
Calcium
Total Bilirubin
AST
ALT
Alkaline Phosphatase
10/19/23 10/19/23 10/19/23
03:50 03:50 03:50
WBC
Hgb
Hct
Plt Count
PT
INR
APTT
Sodium
Potassium
Chloride
Carbon Dioxide
BUN 10 10
Creatinine 0.6 0.6
Glucose
Calcium
Total Bilirubin
AST
ALT
Alkaline Phosphatase
10/19/23 10/19/23 10/19/23
03:50 03:50 03:50
WBC
Hgb
Hct
Plt Count
PT
INR
APTT
Sodium
Potassium
Chloride
Carbon Dioxide
BUN
Creatinine 0.6
Glucose 115 H 116 H 117 H
Calcium 9.1
Total Bilirubin
AST
ALT
Alkaline Phosphatase
10/19/23 10/19/23 10/19/23
03:50 03:50 03:51
WBC 6.8
Hgb 13.6
Hct 38.4
Plt Count 233
PT
INR
APTT
Sodium
Potassium
Chloride
Carbon Dioxide
BUN
Creatinine
Glucose
Calcium 9.1 9.1
Total Bilirubin 0.5
AST 73 H
ALT 52 H
Alkaline Phosphatase 85
10/19/23 10/19/23 10/19/23
08:47 13:42 13:42
WBC
Hgb
Hct
Plt Count
PT
INR
APTT
Sodium 128 L Pending Pending
Potassium 4.8 Pending
Chloride 97 L
Carbon Dioxide 25
BUN 10
Creatinine 0.6
Glucose 103 H
Calcium 9.0
Total Bilirubin
AST
ALT
Alkaline Phosphatase
10/19/23 10/19/23 10/19/23
13:42 13:42 13:42
WBC
Hgb
Hct
Plt Count
PT
INR
APTT
Sodium
Potassium Pending
Chloride Pending Pending
Carbon Dioxide Pending Pending
BUN Pending
Creatinine Pending
Glucose Pending
Calcium Pending
Total Bilirubin
AST
ALT
Alkaline Phosphatase
Vital Signs:
Vital Signs
Temp Pulse Resp BP Pulse Ox
98.3 F 75 13 131/68 93
10/19/23 11:49 10/19/23 12:00 10/19/23 12:00 10/19/23 12:00 10/19/23 12:00
I&O
10/18/23 10/19/23 10/20/23
06:59 06:59 06:59
Output Total 900 / 900 600 / 600
Balance -900 / -900 -600 / -600
Review of Systems
-
History Source: Patient
All other systems: Not reviewed unless documented
Data Reviewed
-
CT Scan: Image personally visualized and interpreted and Report Reviewed by me
Labs: Labs Reviewed by me
[2023-10-19 14:09] LABS: Carbon Dioxide 23 mmol/L (22-30); Chloride 95 mmol/L (98-107); Potassium 4.8 mmol/L (3.5-5.1); Sodium 127 mmol/L (135-145)
[2023-10-19 14:11] LABS: Blood Urea Nitrogen 10 mg/dl (7-17); Calcium 9.2 mg/dl (8.4-10.2); Carbon Dioxide 25 mmol/L (22-30); Chloride 96 mmol/L (98-107); Estimated Creatinine Clearance 68 ml/min; Glucose 102 mg/dl (70-99); Potassium 4.8 mmol/L (3.5-5.1); Sodium 126 mmol/L (135-145); eGFR > 60.00
--- NOTE | 2023-10-19 14:39 | CON.GS ---
Addendum entered and electronically signed by Cruz Álvarez MD 10/19/23 15:53:
Patient seen and examined with nurse practitioner. Agree with documented consultation with additions noted here. Also discussed with patient's [id number] who is significantly involved in patient's care.
History limited by patient's history of dementia. She [facility] in a [facility] facility. She has had intermittent abdominal pains but she was brought into the emergency department for evaluation of worsening confusion compared to baseline not
specifically an acute abdominal event or acute abdominal pain. Patient states that she has had a hernia that she has been following expectantly. Her [id number] states that she underwent operative correction about a year ago at [facility] but it
has recurred. Patient currently scheduled to return to her prior hernia surgeon for evaluation in October.
AFVSS
NAD, AAO to self and hospital but poor historian with some confusion
ABD: Soft, nondistended, nontender, periumbilical hernia and left sided old ostomy site incisional hernia are essentially reduced in supine position
Assessment/plan: 83-year-old female admitted with worsening mental status compared to baseline found to be hyponatremic
General surgery consultation for incidental radiographic finding of a left old ostomy site incisional hernia that the family and patient are aware of.
There are no clinical signs of incarceration, obstruction or strangulation.
Hernia is essentially spontaneously reduced while lying down but noted with movement or standing.
Discussed with her [id number]-[id number] in detail. Continue with plan for outpatient surgical follow-up either at [facility] or [id number] mention that it may be easier for patient to continue future surgical care for her hernia locally in which case
I offered follow-up with myself as an outpatient.
Signing off
Please call if can be of further assistance with patient surgical care.
Original Note:
Consultation
-
Date/Time Consultation Requested: 10/19/23 0004
Requesting Provider: Laly
Reason for Consultation: ventral hernia, r/o incarceration
Medical History
-
Chief Complaint: Confusion
History of Present Illness:
Ms Fako is an 83 yo female with a h/o dementia, hysterectomy, bladder repair surgery after childbirth with chronic urinary retention with CIC BID, ex lap for KRISTAN, perforated diverticulitis with Adan's procedure at [facility] in 2020 with colostomy
reversal in 2021 with known ventral hernia who presented through the ED with worsening confusion with hyponatremia noted. She is able to provide some history, but not clear on all the details. She notes that she has known about her hernia for some
time and it has been a little sore. She denies nausea or vomiting. She denies difficulty with stools.
Past Medical History
Past Medical History: Diverticulitis, HTN, Hypercholesterolemia and Other (asthma, chronic constipation, urinary retention: self caths, UTI's, anemia, chronic pain, Alzheimer's dementia, IBS, major depression)
Past Surgical History: Bowel Resection (Adan's with colostomy creation (12/2020) and subsequent reversal (05/2021)), Gynecological (hysterectomy), Orthopedic (THR x2), Urological (Bladder repair after childbirth) and Other (Ex Lap KRISTAN)
Social History
Tobacco: Non-Smoker
Alcohol: None
Personal:
Living: Assisted Living
Family History
Family History: Reviewed & Not Pertinent
Allergies / Home Medications
Allergy/AdvReac Type Severity Reaction Status Date / Time
acetaminophen [From Percocet] Allergy Hives Verified 10/18/23 17:42
belladonna alkaloids Allergy Unknown Verified 10/18/23 17:42
ciprofloxacin [From Cipro] Allergy Unknown Verified 10/18/23 17:42
codeine Allergy Unknown Verified 10/18/23 17:42
ezetimibe [From Vytorin] Allergy Unknown Verified 10/18/23 17:42
gabapentin Allergy Unknown Verified 10/18/23 17:42
oxycodone [From Percocet] Allergy Hives Verified 10/18/23 17:42
plecanatide [From Trulance] Allergy Unknown Verified 10/18/23 17:49
propoxyphene Allergy Hives Verified 10/18/23 17:42
[From Darvocet-N]
sertraline Allergy Unknown Verified 10/18/23 17:42
simvastatin [From Vytorin] Allergy Unknown Verified 10/18/23 17:42
tramadol Allergy Unknown Verified 10/18/23 17:42
Influenza Virus Vaccines AdvReac Unknown Verified 10/18/23 17:42
�Medication �Instructions �Recorded �Confirmed �Type
alprazolam 0.5 mg tablet 0.5 mg PO HSPRN PRN anxiety 10/12/21 10/18/23 History
aluminum-magnesium hydroxide 200 20 ml PO Q8HPRN PRN indigestion 10/12/21 10/18/23 History
mg-200 mg/5 mL oral suspension
benzonatate 100 mg capsule 100 mg PO Q8HPRN PRN cough 10/12/21 10/18/23 History
carboxymethyl 0.5 %-glycerin 1 2 drp BOTH EYES BID Eye condition 10/12/21 10/18/23 History
%-polysorb 80 0.5 %-PF eye
dropperette (Refresh Optive Santy-3
(PF))
cetirizine 10 mg tablet 10 mg PO DAILY Allergies 10/12/21 10/18/23 History
estradiol 10 mcg vaginal insert 10 mcg vaginal WESA@2200 Hormonal 10/12/21 10/18/23 History
agent
eszopiclone 3 mg tablet 3 mg PO HS Sleep 10/12/21 10/18/23 History
losartan 25 mg tablet 25 mg PO DAILY Blood Pressure 10/12/21 10/18/23 History
nitrofurantoin macrocrystal 100 mg 100 mg PO DAILY Urinary Issue 10/12/21 10/18/23 History
capsule
ondansetron HCl 4 mg tablet 4 mg PO [id number] PRN nausea 10/12/21 10/18/23 History
rosuvastatin 5 mg tablet 5 mg PO HS High Cholesterol 10/12/21 10/18/23 History
sennosides 8.6 mg tablet (Senokot) 8.6 mg PO QPM Constipation 10/12/21 10/18/23 History
simethicone 125 mg tablet 125 mg PO QID gas 10/12/21 10/18/23 History
acetaminophen 500 mg tablet 1,000 mg PO TID MILD PAIN 08/29/22 10/18/23 History
bismuth subsalicylate 262 mg/15 mL 524 mg PO Q6HPRN PRN diarrhea 08/29/22 10/18/23 History
oral suspension
dextromethorphan HBr 30 mg/5 mL 60 mg PO [id number] PRN cough 08/29/22 10/18/23 History
oral liquid
donepezil 5 mg tablet 5 mg PO HS dementia 08/29/22 10/18/23 History
fluoride (sodium) 1.1 % dental 1 applic dental BID dental care 08/29/22 10/18/23 History
paste (PreviDent 5000 Dry Mouth)
ibuprofen 200 mg capsule 400 mg PO BID Pain 08/29/22 10/18/23 History
lidocaine HCl 2 % mucosal jelly in 1 applic topical Q8HPRN PRN 08/29/22 10/18/23 History
applicator hemorrhoid pain
pantoprazole 20 mg tablet,delayed 40 mg PO DAILY Gastrointestinal 08/29/22 10/18/23 History
release Issue
polyethylene glycol 3350 17 gram 8.5 grams PO DAILYPRN PRN 08/29/22 10/18/23 History
oral powder packet constipation
tramadol 50 mg tablet 50 mg PO [id number] PRN severe pain 08/29/22 10/18/23 History
Benefiber (wheat dextrin) 1 tbsp PO [id number] PRN constipation 10/18/23 10/18/23 History
ascorbic acid (vitamin C) 500 mg 500 mg PO DAILY Supplement 10/18/23 10/18/23 History
tablet
bisacodyl 10 mg rectal suppository 10 mg ME DAILYPRN PRN constipation 10/18/23 10/18/23 History
(Dulcolax (bisacodyl))
docusate sodium 100 mg capsule 100 mg PO BIDPRN PRN constipation 10/18/23 10/18/23 History
hydrocortisone 1 % topical cream 1 applic topical PRN PRN skin 10/18/23 10/18/23 History
conditions
loperamide 2 mg capsule 2 mg PO QIDPRN PRN diarrhea 10/18/23 10/18/23 History
memantine 10 mg tablet 10 mg PO BID Neurological Condition 10/18/23 10/18/23 History
mirtazapine 45 mg tablet 45 mg PO HS Depression 10/18/23 10/18/23 History
multivitamin with minerals-folic 2 tab PO DAILY Supplement 10/18/23 10/18/23 History
acid 120 mcg chewable tablet
(Women's Multivitamin Gummies)
oxybutynin chloride 5 mg tablet 5 mg PO BID Urinary Issue 10/18/23 10/18/23 History
Review of Systems
-
History Source: Patient, Family, Coordinating Provider and Other (prior records from previous visits)
All other systems: Negative unless noted
A 10 point review of systems was completed, and was negative except as per HPI.
Physical Exam
Vital Signs
Temp Pulse Resp BP Pulse Ox
98.3 F 75 13 131/68 93
10/19/23 11:49 10/19/23 12:00 10/19/23 12:00 10/19/23 12:00 10/19/23 12:00
10/18/23 10/19/23 10/20/23
06:59 06:59 06:59
Actual Weight 71.2 kg
Body Mass Index (BMI) 28.7
Lab Results
10/19/23 03:51
WBC 6.8 10^3/uL (4.8-10.8) 10/19/23 03:51
Hgb 13.6 g/dL (12.0-16.0) 10/19/23 03:51
Hct 38.4 % (37.0-47.0) 10/19/23 03:51
Plt Count 233 10^3/uL (130-400) 10/19/23 03:51
Abs Immat Gran (auto) 0.2 10^3/uL (0-0.05) H 10/19/23 03:51
Neutrophils % 64.1 % (42.2-75.2) 10/19/23 03:51
Physical Exam
General: Well Developed, Well Nourished and Comfortable
HEENT: Normocephalic and Moist Mucous Membranes
Respiratory: Non Labored Respirations
GI: Soft and Tender (ventral hernias along midline incision and to prior ostomy site which are mildly tender to palpation but soft and reducible)
Skin: Warm and Dry
Neuro: Awake, Alert and AO x 3
Psych: Calm
Data Reviewed
-
CT Scan: Image Personally Visualized and interpreted, Report Reviewed by me, Discussed with Physician, Discussed with Patient and Discussed with Family
Labs: Labs Reviewed by me, Discussed with Physician, Discussed with Patient and Discussed with Family
Old Records: Reviewed
Assessment / Plan
-
83 yo female with a h/o dementia, hysterectomy, bladder repair surgery after childbirth with chronic urinary retention with CIC BID, ex lap for KRISTAN, perforated diverticulitis with Adan's procedure at [facility] in 2020 with colostomy reversal in 2021
with known ventral hernia who presented through the ED with worsening confusion with hyponatremia noted. She is being followed for treatment of hyponatremia in the IMU.
Seen in evaluation today given concern over discomfort at ventral hernia site. CT imaging with several fat containing ventral hernias as well as a left ventral hernia at prior ostomy site which contains bowel. Soft without evidence of incarceration.
Chronic tenderness at baseline which she doesn't not think has changed. H/O IBS with chronic constipation noted in prior records. No N/V, passing flatus.
No plans for urgent surgery this hospitalization. She is unsure if she would like to undergo a larger surgery in general. Will discuss OP follow up for continued discussion of hernia repair with patient/family.
Ok for regular diet
Bowel regimen: Miralax, metamucil
[2023-10-19] MEDS: TYLENOL PO (16:48)
[2023-10-19] MEDS: LOVENOX 40 MG SC (17:44)
[2023-10-19 19:29] LABS: Blood Urea Nitrogen 10 mg/dl (7-17); Calcium 9.2 mg/dl (8.4-10.2); Carbon Dioxide 23 mmol/L (22-30); Chloride 95 mmol/L (98-107); Estimated Creatinine Clearance 58 ml/min; Glucose 136 mg/dl (70-99); Potassium 4.6 mmol/L (3.5-5.1); Sodium 126 mmol/L (135-145); eGFR > 60.00
[2023-10-19] MEDS: XANAX 0.5 MG PO (21:07)
[2023-10-19] MEDS: AMBIEN 10 MG PO (21:12)
[2023-10-19] MEDS: ARICEPT 5 MG PO (21:12)
[2023-10-19] MEDS: REMERON 45 MG PO (21:12)
[2023-10-20] VITALS (11 sets, daily range): BP systolic 109–152; BP diastolic 51–81; BMI 28.0
[2023-10-20 03:39] LABS: Hematocrit 36.9 % (37.0-47.0); Hemoglobin 12.9 g/dL (12.0-16.0); Mean Corpuscular Hgb 30.6 pg (27.0-31.0); Mean Corpuscular Volume 87.6 fL (81.0-99.0); Mean Platelet Volume 8.5 fL (7.4-10.4); Platelet Count 240 10^3/uL (130-400); Red Blood Cell Count 4.21 10^6/uL (4.20-5.40); Red Cell Dist. Width 12.8 % (11.5-14.5); White Blood Cell Count 6.6 10^3/uL (4.8-10.8)
--- NOTE | 2023-10-20 03:44 | PTCARENOTE ---
Pt received resting in bed at beginning of shift. AAOx3 but is forgetful and can be repetitive in responses. Received HS care, used BSC. Took HS meds without difficulty. Sleeping well. AM labs obtained and sent. VSS. Afebrile. SR on CM. Stearns
draining yellow urine. Minimal discomfort to left lower abd. +BS. No change from previous assessment. Call saab remains within reach. Will continue to monitor.
[2023-10-20 04:03] LABS: ALT (SGPT) 58 U/L (0-35); AST (SGOT) 78 U/L (14-36); Alkaline Phosphatase 81 U/L (38-126); Blood Urea Nitrogen 14 mg/dl (7-17); Calcium 9.1 mg/dl (8.4-10.2); Carbon Dioxide 24 mmol/L (22-30); Chloride 96 mmol/L (98-107); Estimated Creatinine Clearance 58 ml/min; Glucose 112 mg/dl (70-99); Potassium 4.6 mmol/L (3.5-5.1); Sodium 126 mmol/L (135-145); Total Bilirubin 0.6 mg/dl (0.2-1.3); Total Protein 6.5 g/dl (6.3-8.2); eGFR > 60.00
[2023-10-20] MEDS: COZAAR 25 MG PO (07:46)
[2023-10-20] MEDS: METAMUCIL, KONSYL 1 PACKET PO (07:46)
[2023-10-20] MEDS: MIRALAX 17 GRAMS PO (07:46)
[2023-10-20] MEDS: MYLICON 120 MG PO ×3 (07:47→21:21)
[2023-10-20] MEDS: VITAMIN C 500 MG PO (07:47)
[2023-10-20] MEDS: MACROBID 100 MG PO (07:48)
[2023-10-20] MEDS: ZYRTEC 10 MG PO (07:48)
[2023-10-20] MEDS: PROTONIX 40 MG PO (07:48)
[2023-10-20] MEDS: THERAGRAN 1 TABLET PO (07:49)
[2023-10-20] MEDS: DITROPAN 5 MG PO ×2 (07:49→21:21)
[2023-10-20] MEDS: REFRESH CELLUVISC GEL 2 DROPS BOTH EYES ×2 (07:50→21:20)
[2023-10-20] MEDS: NAMENDA 10 MG PO ×2 (07:50→21:20)
[2023-10-20] MEDS: TYLENOL 1000 MG PO ×2 (07:50→21:21)
--- NOTE | 2023-10-20 09:03 | W.PN.NEPH.PH ---
Today's Communication / Plan
-
7.5 mg tolvaptan provided
Assessment/Plan
-
Impression:
Hyponatremia
Abdominal pain with left ventral hernia
Bladder mass
Dementia
Hypertension
Asthma
Urinary retention with chronic UTI with self-catheterization
Anxiety and depression
Plan:
Hyponatremia:
-Serum sodium from 123-128 following 3% administration but now back down to 126
-Maintain fluid restrict once po at 48oz
-Maintain Figueroa catheter
-Urine osmolality of 225 only notes partial excess ADH in setting of hyponatremia
-will provide 7.5mg of tolvaptan as sodium is only 126
-I am concerned that hyponatremia may be a function of inadequate urine output due to limited self-catheterization, maintain figueroa
HTN:
-Okay to maintain losartan
-
-
Date of Service: October 20, 2023
CC / HPI / ROS
-
Chief Complaint:
Hyponatremia
History of Present Illness:
Sodium unchanged at 120
Hemodynamically
Review of Systems:
No chest pain or shortness of breath
Left ventral hernia pain
Labs
-
Labs:
WBC 6.6 10^3/uL (4.8-10.8) 10/20/23 03:25
RBC 4.21 10^6/uL (4.20-5.40) 10/20/23 03:25
Hgb 12.9 g/dL (12.0-16.0) 10/20/23 03:25
Hct 36.9 % (37.0-47.0) L 10/20/23 03:25
Plt Count 240 10^3/uL (130-400) 10/20/23 03:25
eGFR > 60.00 10/20/23 03:25
Albumin 4.0 g/dl (3.5-5.0) 10/20/23 03:25
Physical Exam
-
Vital Signs:
Vital Signs
Temp Pulse Resp BP Pulse Ox
98.2 F 73 14 135/81 90
10/20/23 07:16 10/20/23 04:00 10/20/23 04:00 10/20/23 04:00 10/20/23 02:00
Cardiovascular:: Regular rate and rhythm
Respiratory:: Bilateral: CTA
Lung Excursion:: Normal
Abdomen:: Nontender and Soft
Bowel Sounds:: Normal
Extremity Edema:: None: Bilateral:
Figueroa Catheter: Yes
[2023-10-20] MEDS: SAMSCA 7.5 MG PO (10:30)
--- NOTE | 2023-10-20 12:51 | W.PN.URO.CBU ---
Today's Communication / Plan
-
leave figueroa until nephrology no longer requires pt does ciic or filomena urtehra bid and has filomena at bedside
Assessment / Plan
-
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
then pt has filomena to manage
Diagnosis
-
Date of Service: October 20, 2023
-
Patient Diagnosis:
Post Op Day:
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
Post Op Day:
Subjective
-
diffivculty voibding
Objective
-
Vital Signs
Temp Pulse Resp BP Pulse Ox
98.6 F 75 17 142/75 93
10/20/23 11:34 10/20/23 10:00 10/20/23 10:00 10/20/23 10:00 10/20/23 10:00
Intake and Output
10/19/23 10/20/23 10/21/23
06:59 06:59 06:59
Intake Total 240 / 240
Output Total 900 / 900 1300 / 1300
Balance -900 / -900 -1060 / -1060
Intake:
Oral fluids 240 / 240
Output:
Urine, Figueroa 900 / 900 1300 / 1300
Laboratory Results
10/20/23 03:25
Review of Systems
-
: Difficulty Voiding
Physical Exam
-
General - well developed, well nourished, no acute distress
Chest - clear bilaterally
Abdomen - soft, non-tender, positive bowel sounds, no CVAT, no incisional pain or distention
Genitalia - normal
Rectal - normal
Skin - warm & dry with no rash
Neuro - AOx3, no motor deficits
Extremities - no clubbing, no cyanosis, no edema
Incision - clean, dry
Dressing - clean, dry, intact
Care Review
Data Reviewed
Discussed with: Nursing
[2023-10-20] MEDS: MYLICON PO (13:45)
--- NOTE | 2023-10-20 13:53 | W.PN.HOSP.TC ---
Today's Communication/Plan
-
tolvaptan
maintain fiugeroa for now
monitor bmp
Assessment / Plan
Assessment / Plan
Physical Exam
General: No Apparent Distress and Comfortable
HEENT: NormoCephalic, Atraumatic and Other (Dry MM. PERRLA. Uvula Midline. )
Respiratory: Clear; No Wheezes, Rales or Rhonchi
Cardiac: S1/S2 and Regular Rhythm
GI: Soft, Normal Bowel Sounds and Other (left sided ventral hernia, reducible. Moderate TTP. No discoloration. ); No Distended or Organomegaly
Genito-urinary: No costovertebral tender
Musculoskeletal: No Clubbing and No Cyanosis; No Edema, Left Lower Extremity or Edema, Right Lower Extremity
Skin: Warm and Dry; No Rash
Neuro: Awake, Alert, AO x 3 (AOx1 (knows name, baseline)), No Motor Deficits, Nonfocal/grossly intact and Other (pupils dilated (s/p eye exam); left eye full ptosis and full closure, cannot adduct left eye; diplopia on lateral gaze; no nystagmus, no
facial asymmetry, no pronator drift, 5/5 strength upper and lower extremities )
Psych: Calm
Hyponatremia, Severe
-Possible SIADH
--Maintain fluid restrict once po at 48oz
� Tolvaptan today
-Maintain Figueroa catheter
-Monitor BMP
- Holding tramadol and nsaids
Acute on Chronic Metabolic Encephalopathy, resolved
Hx Dementia
- AAOx3 with poor insight and knowledge of medical history
- Likely acute/chronic exacerbated by hyponatremia. Trend for improvement
- Continue home donepezil
Abdominal Pain
Ventral Hernia
- CT A/P IMPRESSION
Bowel containing left ventral hernia as described above at previous ostomy site. Decreased in size. New associated mild fluid.
- Hold Statin
-Monitor LFTs
- Overnight Consulted Gen Surgery: although doubt any surgical intervention at this time; can f/u outpatient
Transaminitis
- AST/ALT 84/53.
- Trend LFTs. Hold statin.
Bladder Mass - CT imaging reviewed.
-Consult urology. Family denies any known history.
-F/u outpatient for cysto
-Can maintain figueroa
HTN/HLD
- Stable on home losartan
- Hold statin 2/2 mild transaminitis
Asthma - Stable on home Flonase/albuterol/IS.
Urinary Retention with Chronic UTI history
- Hx Recurrent UTI. Afebrile. No leukocytosis
- UA consistent with sterile pyuria. No indication for abx at this time.
- Continue prophylactic macrobid
- Straight caths 2-3x daily. Figueroa inserted per nephro recs for hyponatremia.
Anxiety/Depression
- Continue home Remeron and risperidone
Chronic Pain
- Hold tramadol and nsaids 2/2 hyponatremia
DVT Ppx: Lovenox
Diet: Chol Lowering/48 ox restriction
Code Status: Full Code. Confirmed with DIL
- Patient states her son Darian Jain and MIRANDA Paola [place] (nurse) make decisions for her.
Anticipated Discharge: 24 - 48 hours
Subjective/Interval History
-
Date of Service: October 20, 2023
No acute events overnight, sodium back down to 126
Objective Data
-
Labs:
Laboratory Results
10/20/23 10/20/23
03:25 09:00
WBC 6.6
Hgb 12.9
Hct 36.9 L
Plt Count 240
Sodium 126 L Pending
Potassium 4.6 Pending
Chloride 96 L Pending
Carbon Dioxide 24 Pending
BUN 14 Pending
Creatinine 0.7 Pending
Glucose 112 H Pending
Calcium 9.1 Pending
Total Bilirubin 0.6
AST 78 H
ALT 58 H
Alkaline Phosphatase 81
Vital Signs:
Vital Signs
Temp Pulse Resp BP Pulse Ox
98.6 F 75 17 142/75 93
10/20/23 11:34 10/20/23 10:00 10/20/23 10:00 10/20/23 10:00 10/20/23 10:00
I&O
10/19/23 10/20/23 10/21/23
06:59 06:59 06:59
Intake Total 240 / 240
Output Total 900 / 900 1300 / 1300
Balance -900 / -900 -1060 / -1060
Review of Systems
-
History Source: Patient
All other systems: Not reviewed unless documented
Data Reviewed
-
CT Scan: Image personally visualized and interpreted and Report Reviewed by me
Labs: Labs Reviewed by me
[2023-10-20 14:54] LABS: Blood Urea Nitrogen 13 mg/dl (7-17); Calcium 9.9 mg/dl (8.4-10.2); Carbon Dioxide 27 mmol/L (22-30); Chloride 96 mmol/L (98-107); Estimated Creatinine Clearance 57 ml/min; Glucose 103 mg/dl (70-99); Potassium 4.8 mmol/L (3.5-5.1); Sodium 131 mmol/L (135-145); eGFR > 60.00
[2023-10-20] MEDS: TYLENOL PO (17:13)
[2023-10-20] MEDS: LOVENOX 40 MG SC (18:07)
[2023-10-20] MEDS: REMERON 45 MG PO (21:21)
[2023-10-20] MEDS: AMBIEN 10 MG PO (21:21)
[2023-10-20] MEDS: ARICEPT 5 MG PO (21:22)
[2023-10-20] MEDS: XANAX 0.5 MG PO (21:23)
--- NOTE | 2023-10-20 21:54 | PTCARENOTE ---
Pt ate 95% of dinner tonight. Family came to visit. In good spirits. Took HS meds without difficulty. Requesting a shampoo, currently being given. Brushing her teeth. Admits to minimal discomfort to left abd that comes and goes. Stated she had large
soft BM earlier in day without issue on BSC. Stearns remains intact draining yellow urine. VSS. Afebrile. SR on CM. Rest of assessment as documented. Call saab remains within reach. Bed alarm on and working for safety. Will continue to monitor.
[2023-10-21] VITALS (10 sets, daily range): BP systolic 102–132; BP diastolic 57–69; PULSE 83–89; O2SAT 92–93
[2023-10-21 05:04] LABS: Hematocrit 39.5 % (37.0-47.0); Hemoglobin 13.7 g/dL (12.0-16.0); Mean Corp Hgb Conc. 34.7 g/dL (33.0-37.0); Mean Corpuscular Hgb 30.6 pg (27.0-31.0); Mean Corpuscular Volume 88.4 fL (81.0-99.0); Mean Platelet Volume 8.8 fL (7.4-10.4); Platelet Count 279 10^3/uL (130-400); Red Blood Cell Count 4.47 10^6/uL (4.20-5.40); White Blood Cell Count 7.5 10^3/uL (4.8-10.8)
[2023-10-21 05:24] LABS: Blood Urea Nitrogen 20 mg/dl (7-17); Calcium 9.9 mg/dl (8.4-10.2); Carbon Dioxide 23 mmol/L (22-30); Chloride 98 mmol/L (98-107); Estimated Creatinine Clearance 50 ml/min; Glucose 110 mg/dl (70-99); Potassium 4.6 mmol/L (3.5-5.1); Sodium 131 mmol/L (135-145); eGFR > 60.00
--- NOTE | 2023-10-21 08:16 | W.PN.HOSP.TC ---
Today's Communication/Plan
-
Discharge
Assessment / Plan
Assessment / Plan
Gen-AAOx3, NAD
HEENT-NC, AT, anicteric, clear oral mm
Neck-supple
CV-reg, no M, +S1/S2
Lungs-clear B/L
Abd-soft, NT, ND
Ext-no edema
Musculoskeletal-no cyanosis, clubbing
Skin-warm and dry
Neuro-grossly non-focal
Psych-calm, cooperative
Figueroa catheter in place
Hyponatremia -improved and stable now at 131. Received 1 dose of tolvaptan yesterday. Continue fluid restriction 48 ounces daily. I spoke with nephrology and the belief is that the hyponatremia was driven by ongoing urinary retention despite
self-catheterization at home. Nephrology recommends maintaining Figueroa catheter on discharge.
Acute on Chronic Metabolic Encephalopathy, resolved
Hx Dementia
- AAOx3 with poor insight and knowledge of medical history
- Likely acute/chronic exacerbated by hyponatremia. Trend for improvement
- Continue home donepezil
Abdominal Pain
Ventral Hernia
- CT A/P IMPRESSION
Bowel containing left ventral hernia as described above at previous ostomy site. Decreased in size. New associated mild fluid.
- Hold Statin
Follow-up with general surgery after discharge.
Transaminitis
- AST/ALT 84/53.
- Trend LFTs. Hold statin.
Bladder Mass - CT imaging reviewed.
-Consult urology. Family denies any known history.
-F/u outpatient for cysto
-Can maintain figueroa
HTN/HLD
- Stable on home losartan
- Hold statin 2/2 mild transaminitis
Asthma - Stable on home Flonase/albuterol/IS.
Urinary Retention with Chronic UTI history
- Hx Recurrent UTI. Afebrile. No leukocytosis
- UA consistent with sterile pyuria. No indication for abx at this time.
- Continue prophylactic macrobid
- Straight caths 2-3x daily. Figueroa inserted per nephro recs for hyponatremia.
Anxiety/Depression
- Continue home Remeron and risperidone
Chronic Pain
- Hold tramadol and nsaids 2/2 hyponatremia
Full code
Dispo -medically stable for discharge today. She lives in an assisted living facility. Arrange for visiting nurse given need for Figueroa catheter on discharge. Discussed with [id number] as well as case management.
Follow-up with urology within 1 week to decide on Figueroa catheter removal. BMP in 1 week, results to Dr. Noel of nephrology.
Updated [id number] Paola on the phone. All questions answered.
35 minutes spent in discharge process.
Anticipated Discharge: Today
Subjective/Interval History
-
Date of Service: October 21, 2023
Patient seen and examined. No new complaints. Still with abdominal discomfort but looks comfortable. Sleeping when I walked in.
Objective Data
-
Labs:
Laboratory Results
10/21/23
04:19
WBC 7.5
Hgb 13.7
Hct 39.5
Plt Count 279
Sodium 131 L
Potassium 4.6
Chloride 98
Carbon Dioxide 23
BUN 20 H
Creatinine 0.8
Glucose 110 H
Calcium 9.9
Vital Signs:
Vital Signs
Temp Pulse Resp BP Pulse Ox
98.1 F 84 15 121/63 92
10/21/23 07:48 10/21/23 06:00 10/21/23 06:00 10/21/23 06:00 10/21/23 06:00
I&O
10/20/23 10/21/23 10/22/23
06:59 06:59 06:59
Intake Total 240 / 240 240 / 240
Output Total 1300 / 1300 1100 / 1100
Balance -1060 / -1060 -860 / -860
Review of Systems
-
Unable to obtain full review of systems at this time due to: Dementia
History Source: Patient
All other systems: Reviewed and negative
--- NOTE | 2023-10-21 08:38 | W.DS.TRANS ---
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
-
Discharge Instructions:
Discharge Diagnosis/Procedures Hyponatremia, confusion, urinary retention
Diet Low Cholesterol,Restrict fluids to 48 oz
Activity As tolerated
Driving Restrictions No driving
Bathing Restrictions None
Blood Work BMP in 1 week, results to Dr. Noel
Other Services VN
Instructions:
Stand-Alone Forms:
Changes to Home Medications: No
Discharge Medications:
DC Medications w/original date entered in [employer]
alprazolam 0.5 mg tablet 0.5 mg PO HSPRN PRN anxiety 10/12/21
aluminum-magnesium hydroxide 200 mg-200 mg/5 mL oral suspension 20 ml PO Q8HPRN PRN indigestion 10/12/21
benzonatate 100 mg capsule 100 mg PO Q8HPRN PRN cough 10/12/21
carboxymethyl 0.5 %-glycerin 1 %-polysorb 80 0.5 %-PF eye dropperette (Refresh Optive Santy-3 (PF)) 2 drp BOTH EYES BID Eye condition 10/12/21
cetirizine 10 mg tablet 10 mg PO DAILY Allergies 10/12/21
estradiol 10 mcg vaginal insert 10 mcg vaginal WESA@2200 Hormonal agent 10/12/21
eszopiclone 3 mg tablet 3 mg PO HS Sleep 10/12/21
losartan 25 mg tablet 25 mg PO DAILY Blood Pressure 10/12/21
nitrofurantoin macrocrystal 100 mg capsule 100 mg PO DAILY Urinary Issue 10/12/21
rosuvastatin 5 mg tablet 5 mg PO HS High Cholesterol 10/12/21
sennosides 8.6 mg tablet (Senokot) 8.6 mg PO QPM Constipation 10/12/21
simethicone 125 mg tablet 125 mg PO QID gas 10/12/21
acetaminophen 500 mg tablet 1,000 mg PO TID MILD PAIN 08/29/22
dextromethorphan HBr 30 mg/5 mL oral liquid 60 mg PO [id number] PRN cough 08/29/22
donepezil 5 mg tablet 5 mg PO HS dementia 08/29/22
fluoride (sodium) 1.1 % dental paste (PreviDent 5000 Dry Mouth) 1 applic dental BID dental care 08/29/22
lidocaine HCl 2 % mucosal jelly in applicator 1 applic topical Q8HPRN PRN hemorrhoid pain 08/29/22
pantoprazole 20 mg tablet,delayed release 40 mg PO DAILY Gastrointestinal Issue 08/29/22
polyethylene glycol 3350 17 gram oral powder packet 8.5 grams PO DAILYPRN PRN constipation 08/29/22
tramadol 50 mg tablet 50 mg PO [id number] PRN severe pain 08/29/22
Benefiber (wheat dextrin) 1 tbsp PO [id number] PRN constipation 10/18/23
ascorbic acid (vitamin C) 500 mg tablet 500 mg PO DAILY Supplement 10/18/23
bisacodyl 10 mg rectal suppository (Dulcolax (bisacodyl)) 10 mg [place] DAILYPRN PRN constipation 10/18/23
docusate sodium 100 mg capsule 100 mg PO BIDPRN PRN constipation 10/18/23
memantine 10 mg tablet 10 mg PO BID Neurological Condition 10/18/23
mirtazapine 45 mg tablet 45 mg PO HS Depression 10/18/23
multivitamin with minerals-folic acid 120 mcg chewable tablet (Women's Multivitamin Gummies) 2 tab PO DAILY Supplement 10/18/23
oxybutynin chloride 5 mg tablet 5 mg PO BID Urinary Issue 10/18/23
Home Medication Changes
Pending Results: No
--- NOTE | 2023-10-21 09:14 | CM ---
Addendum entered by Shakira Ferrell RN 10/21/23 11:45:
[facility] Office fax [phone].
Plan return home today to [facility] with [facility], with son transporting.
Addendum entered by Shakira Ferrell RN 10/21/23 11:38:
PT & OT 10/20 recommend HH.
[phone], fax [phone]); discussed patient's improvement in mobility as per PT/OT today- she is accepting patient back to her PC Unit. The for report to nurse Kolby [phone], fax
[phone].
Spoke with patient's son Darian; informed him that nurse in her PC Unit is accepting her back today and [facility] is setup for her. He will order picker his mother around 6pm this evening---> info relayed to nurse Cronin.
Phone call to India Wu; left message re; referral and d/c today.
Plan return home today to [facility] with [facility] , with son transporting.
Addendum entered by Shakira Ferrell RN 10/21/23 09:49:
Spoke with nurse Carlos [facility] , fax [phone]); discussed patient's mobility as per PT 10/18. She would like patient to work with PT again to see if her ambulation is improved, otherwise they may have to consider her
for their SNF.
Message sent to [facility] requesting PT re-eval today.
Plan follow up after seen by PT.
Original Note:
Patient from [facility] with Hx dementia with Dx Hyponatremia, acute Metabolic Encephalopathy, abdominal pain, Urinary Retention. Room air. Stearns. PT recommends HH.
Spoke with patient's daughter in law Paola Jain, who is a [facility] PACU Nurse;
the patient resides alone in an apartment at [facility].
Daughter relays her baseline mentation is forgetful.
She is mostly independent in ADLs such as bathing/dressing however requires assistance with her medications.
The patient is ambulatory using her RW at times.
DME - RW
Prior VN - prior [facility] and another agency - can't remember
Prior [facility]
PCP - Dr Castrejon
Pharmacy - [facility]
Daughter agrees with the patient returning home today with VN and has no agency preference. IMM completed and copy sent to her email at [email or web address]. Paola says her /patient's son Darian will provide transport after 5pm today when he
is finished work.
Phone calls x2 to [facility] (ph [phone] x [phone]); left message requesting callback re; d/c today. Request if any agency contract and need ph/fax.
Plan contact [facility] re; d/c today.
Plan home today to [facility] with VN, with son transporting.
[2023-10-21] MEDS: MIRALAX 17 GRAMS PO (10:34)
[2023-10-21] MEDS: THERAGRAN 1 TABLET PO (10:34)
[2023-10-21] MEDS: MYLICON 120 MG PO ×2 (10:35→13:09)
[2023-10-21] MEDS: MACROBID 100 MG PO (10:35)
[2023-10-21] MEDS: NAMENDA 10 MG PO (10:38)
[2023-10-21] MEDS: PROTONIX 40 MG PO (10:38)
[2023-10-21] MEDS: COZAAR 25 MG PO (10:38)
[2023-10-21] MEDS: DITROPAN 5 MG PO (10:38)
[2023-10-21] MEDS: ZYRTEC 10 MG PO (10:38)
[2023-10-21] MEDS: TYLENOL 1000 MG PO (10:38)
[2023-10-21] MEDS: METAMUCIL, KONSYL PO (10:39)
[2023-10-21] MEDS: VITAMIN C 500 MG PO (10:39)
[2023-10-21] MEDS: REFRESH CELLUVISC GEL 2 DROPS BOTH EYES (10:39)
--- NOTE | 2023-10-21 11:16 | PTCARENOTE ---
Pt rec'd from previous RN, assisted oob to chair with PT/OT this am. Standby assist with RW only, plan discussed with care team, pt is for discharge back to previous facility -per CM, son will transport pt after work. Pt will be discharged with
figueroa in place, will f/u with urology as outpt. Pt remains AOx3 but with confused conversation at times. Safe environment maintained.
--- NOTE | 2023-10-21 12:02 | PTCARENOTE ---
Per attending, figueroa order amended. Pt is also full code per family. DNR bracelet removed.
--- NOTE | 2023-10-21 12:44 | W.PN.NEPH.PH ---
Today's Communication / Plan
-
- for discharge
Assessment/Plan
-
Impression:
Hyponatremia
Abdominal pain with left ventral hernia
Bladder mass
Dementia
Hypertension
Asthma
Urinary retention with chronic UTI with self-catheterization
Anxiety and depression
Plan:
Hyponatremia:
-Serum sodium from 123-128 following 3% administration, now improved to 131
-Maintain fluid restrict once po at 48oz
-Maintain Stearns catheter
-Urine osmolality of 225 only notes partial excess ADH in setting of hyponatremia, likely some component of limited self cath and decreased intake.
-encouraged increased protein intake
-likely for discharge today
HTN:
-Okay to maintain losartan
-
-
Date of Service: October 21, 2023
CC / HPI / ROS
-
Chief Complaint:
Hyponatremia
History of Present Illness:
Sodium improved to 131
Hemodynamically stable
Review of Systems:
No chest pain or shortness of breath
Left ventral hernia pain
Labs
-
Labs:
WBC 7.5 10^3/uL (4.8-10.8) 10/21/23 04:19
RBC 4.47 10^6/uL (4.20-5.40) 10/21/23 04:19
Hgb 13.7 g/dL (12.0-16.0) 10/21/23 04:19
Hct 39.5 % (37.0-47.0) 10/21/23 04:19
Plt Count 279 10^3/uL (130-400) 10/21/23 04:19
Sodium 131 mmol/L (135-145) L 10/21/23 04:19
Potassium 4.6 mmol/L (3.5-5.1) 10/21/23 04:19
Chloride 98 mmol/L (98-107) 10/21/23 04:19
Carbon Dioxide 23 mmol/L (22-30) 10/21/23 04:19
BUN 20 mg/dl (7-17) H 10/21/23 04:19
Creatinine 0.8 mg/dL (0.6-1.0) 10/21/23 04:19
eGFR > 60.00 10/21/23 04:19
Glucose 110 mg/dl (70-99) H 10/21/23 04:19
Calcium 9.9 mg/dl (8.4-10.2) 10/21/23 04:19
Albumin 4.0 g/dl (3.5-5.0) 10/20/23 03:25
Physical Exam
-
Vital Signs:
Vital Signs
Temp Pulse Resp BP Pulse Ox
97.8 F 85 17 132/69 95
10/21/23 11:17 10/21/23 10:38 10/21/23 10:38 10/21/23 10:38 10/21/23 12:03
Cardiovascular:: Regular rate and rhythm
Respiratory:: Bilateral: CTA
Lung Excursion:: Normal
Abdomen:: Nontender and Soft
Bowel Sounds:: Normal
Extremity Edema:: None: Bilateral:
Stearns Catheter: Yes
--- NOTE | 2023-10-21 13:05 | PTCARENOTE ---
Attempted x1 to call report to facility; pt is due to be transported by family at 6 pm.
--- NOTE | 2023-10-21 13:08 | W.PN.URO.CBU ---
Today's Communication / Plan
-
home with figueroa make appt ofice for cysto
Assessment / Plan
-
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
then pt has filomena to manage
Diagnosis
-
Date of Service: October 21, 2023
-
Patient Diagnosis:
Post Op Day:
Patient Diagnosis:
Post Op Day:
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
Post Op Day:
Subjective
-
atonic bladder
Objective
-
Vital Signs
Temp Pulse Resp BP Pulse Ox
97.8 F 116 20 132/69 95
10/21/23 11:17 10/21/23 12:14 10/21/23 12:14 10/21/23 10:38 10/21/23 12:03
Intake and Output
10/20/23 10/21/23 10/22/23
06:59 06:59 06:59
Intake Total 240 / 240 240 / 240 240 / 240
Output Total 1300 / 1300 1100 / 1100 200 / 200
Balance -1060 / -1060 -860 / -860 40 / 40
Intake:
Oral fluids 240 / 240 240 / 240 240 / 240
Output:
Urine, Figueroa 1300 / 1300 1100 / 1100 200 / 200
Laboratory Results
10/21/23 04:19
10/21/23 04:19
Review of Systems
-
: Difficulty Voiding
Physical Exam
-
General - well developed, well nourished, no acute distress
Chest - clear bilaterally
Abdomen - soft, non-tender, positive bowel sounds, no CVAT, no incisional pain or distention
Genitalia - normal
Rectal - normal
Skin - warm & dry with no rash
Neuro - AOx3, no motor deficits
Extremities - no clubbing, no cyanosis, no edema
Incision - clean, dry
Dressing - clean, dry, intact
Care Review
Data Reviewed
Discussed with: Internal Medicine and Nursing
--- NOTE | 2023-10-21 13:35 | PTCARENOTE ---
Call back rec'd from [facility] -report given to Kolby. Pt assisted back to bed for rest at this time. Bed alarm in place and armed, call saab in reach.
[2023-10-21] MEDS: TYLENOL PO (16:17)
== END 2023-10-21 18:20 | disposition home health service (06) | DRG 640 ==
LOC: IMU 23:54
PROVIDERS: Internal Medicine; Nurse Practitioner Family; Physician Assistant; ADMITTING PHYSICIAN Internal Medicine; ATTENDING PHYSICIAN Hospitalist; CONSULT PHYSICIAN Specialist; CONSULT PHYSICIAN Surgery; EMERGENCY PHYSICIAN Emergency Medicine
DX: E87.1 Hypo-osmolality and hyponatremia (principal); G93.41 Metabolic encephalopathy; F02.84 Dementia in other diseases classified elsewhere, unspecified severity, with anxiety; F02.83 Dementia in other diseases classified elsewhere, unspecified severity, with mood disturbance; E22.2 Syndrome of inappropriate secretion of antidiuretic hormone; Z11.52 Encounter for screening for COVID-19; I10 Essential (primary) hypertension; J45.998 Other asthma; F32.9 Major depressive disorder, single episode, unspecified; N31.2 Flaccid neuropathic bladder, not elsewhere classified; K43.9 Ventral hernia without obstruction or gangrene
CPT/HCPCS: 74177; 80048; 80051; 80053; 81003; 81015; 82550; 83605; 83690; 83735; 83930; 83935; 84300; 84443; 85025; 85027; 85610; 85730; 87070; 87086; 87449; 87811; 93005; 96374; 97163; 97166; 97530; 99285; Q9967

== ENCOUNTER 2024-03-22 22:27 | Inpatient (IN) | payer MEDICARE, OTHER, SELFPAY ==
[2024-03-22 18:07] VITALS: BP 142/67
[2024-03-22 18:13] VITALS: BMI 29.4
[2024-03-22] MEDS: ULTRAM 50 MG PO (18:40)
[2024-03-22 18:46] LABS: % Basophils 0.5 % (0-2); % Eosinophils 1.8 % (0-6); % Immature Granulocytes 0.4 % (0-0.5); % Lymphocytes 30.2 % (20.5-51.1); % Monocytes 11.3 % (1.7-9.3); % Neutrophils 55.8 % (42.2-75.2); Absolute Eosinophils 0.1 10^3/uL (0-0.7); Absolute Lymphocytes 1.7 10^3/uL (1.2-3.4); Absolute Monocytes 0.6 10^3/uL (0.1-0.6); Absolute Neutrophils 3.1 10^3/uL (1.4-6.5); Hematocrit 42.3 % (37.0-47.0); Hemoglobin 14.5 g/dL (12.0-16.0); Mean Corp Hgb Conc. 34.3 g/dL (33.0-37.0); Mean Corpuscular Hgb 31.7 pg (27.0-31.0); Mean Corpuscular Volume 92.6 fL (81.0-99.0); Mean Platelet Volume 9.3 fL (7.4-10.4); Nucleated Red Blood Cells % 0 %; Platelet Count 198 10^3/uL (130-400); Red Blood Cell Count 4.57 10^6/uL (4.20-5.40); Red Cell Dist. Width 12.6 % (11.5-14.5); White Blood Cell Count 5.5 10^3/uL (4.8-10.8)
--- NOTE | 2024-03-22 18:58 | ED.GENMED ---
History of Present Illness
General
Chief Complaint: Abdominal Pain
Source: patient
Exam Limitations: none
Time Seen by Provider: 03/22/24 18:09
Nursing documentation reviewed up to this point in time: agreed with
History of Present Illness
History of Present Illness:
The patient is an 83-year-old female who arrives from a fpc for ongoing abdominal pain for at least 1 year. Patient reports that she had abdominal surgery in [place] about a year and a half ago. She is not exactly sure what the
surgery was. Patient reports that since the surgery, she has had pain in the area. Patient reports the pain occurs on a daily basis and today the pain was more intense and spread across to her right upper abdomen, which she states never happened
before. Patient denies fever, shortness of breath, nausea, vomiting, and constipation. Patient reports that she takes MiraLAX every day and had 2 bowel movements this morning which were soft.
Past History
Past History
ED Past Medical History: Asthma, HTN, Hypercholesterolemia, Psychiatric (Anxiety, depression), Other (Diverticulitis) and Other (UTI, anemia)
ED Past Surgical History: Bowel resection, Gynecological (Hysterectomy), Orthopedic (left hip, right elbow), Urological and Other (Adan procedure for perforated colon, cataracts)
Social History
Tobacco: Non-smoker
Alcohol: None
Drug: None
Personal:
Living: assisted living
Employment: Retired
Family History
Family History: Other
Review of Systems
Review of Systems
Allergies reviewed?: Yes
All Other Systems: ROS reviewed and negative except as documented in HPI and ROS
Constitutional: Reports no symptoms
EENT: Reports no symptoms
Respiratory: Reports no symptoms
Cardiac: Reports no symptoms
ABD/GI: Reports abdominal pain
: Reports no symptoms
Musculoskeletal: Reports no symptoms
Skin: Reports no symptoms
Neurological: Reports no symptoms
Endocrine: Reports no symptoms
Hematologic/Lymphatic: Reports no symptoms
Psychiatric: Reports no symptoms
Phy Exam
Physical Exam
Physical Exam:
Physical Exam
General: no apparent distress, not acutely ill
Neck: supple. no meningeal signs. normal psoterior pharynx
Heart: s1/s2 regular rate and rhythm, no murmur. equal radial pulses.
Lungs: no acute respiratory distress. clear bilaterally
Abdomen: Normal bowel sounds. Mildly distended. Soft. Multiple abdominal surgery scars. Mild abdominal tenderness, just left to the umbilical area. soft throughout. No rebound or guarding. No pulsatile mass
Neuro: alert and oriented. no focal neurological deficits
Skin: no rash
Psychiatric: well kept. interactive and cooperative
Extremities: no edema. no calf tenderness. negative homans. good distal pulses
Course
Orders/Labs/Results
Orders:
Orders
03/22/24 Dinner
NPO
Allow oral meds: Yes
Allow clear liquids: Sips of Clears
NPO with Ice Chips: Yes
03/22/24 18:35
Tramadol HCl [Ultram] 50 mg PO NOW STA
03/22/24 18:37
Complete Blood Count/With Diff Urgent
Comprehensive Metabolic Panel Urgent
Lactic Acid Urgent
Lipase Urgent
03/22/24 19:53
CT Abd/pelvis W Iv Cont Urgent
Comment:
Reason For Exam: L sided abdominal pain
03/22/24 19:54
Urinalysis Reflex To Culture Urgent
Date Specimen was Collected: 03/22/24
Time Specimen was Collected: 21:31
03/22/24 22:12
Admit/Transfer Patient As Directed
Co-Sign Provider:
Level of Care: Inpatient admission
Assign to:: Medical/Surgical
Physician / Group: hospitalist
Diagnosis: abdominal pain
Reason for Hospitalization: abdominal pain
Expected length of stay greater than two midnights?: Yes
ELOS- Estimated Length of Stay in days: 2
I certify the patient meets the requirements for IP care: Yes
PRN Pain Medication Management As Directed
May give lesser potent ordered pain med per pt: Yes
preference::
Protocol:: Medication orders for pain may be administered in a
manner that supports deferring to patient preference
when the pt is:
- Requesting an ordered lesser potent pain medication.
Least to most potent pain medications are defined
as: acetaminophen < NSAID < tramadol < opioids
(morphine, oxycodone, hydromorphone).
- Requesting a lesser dose of the same medication IF
ORDERED.
- Requesting a less intrusive route of administration
if both routes are prescribed by the provider (PO <
IV).
03/22/24 22:15
Code Status As Directed
Resuscitation Status: Full Code
03/22/24 23:00
Flush (0.9% Sodium Chloride) [Flush (Nss)] See Dose Instructions IV PER PROTOCOL
03/22/24 23:13
Acetaminophen [Tylenol] 650 mg PO Q4HPRN PRN
Bisacodyl [Dulcolax] 10 mg RECTAL [id number] PRN
HYDROmorphone [Dilaudid] 0.5 mg IV Q4HPRN PRN
Meclizine [Antivert] 12.5 mg PO TIDPRN PRN
Ondansetron Injectable [Zofran] 4 mg IV Q6HPRN PRN
Tramadol HCl [Ultram] 50 mg PO Q6HPRN PRN
03/22/24 23:13
SURGICAL CONSULT Routine
Consulting Provider: Bobby Noble
Was physician already notified: Yes
Reason for consult: non-incarcereated abdominal wall hernia with loop of bowel, abd. pain
Activity As Directed
Activity Level: With Assistance
Vital Signs As Directed
Frequency: Per unit guidelines
DX Deep Vein Thrombosis Video Routine
03/23/24 06:00
Basic Metabolic Panel IN AM
Complete Blood Count/No Diff IN AM
03/23/24 08:00
Cetirizine HCl [Zyrtec] 10 mg PO DAILY
Losartan [Cozaar] 25 mg PO DAILY
Memantine HCl [Namenda] 10 mg PO BID
Nitrofurantoin Monohydrate [Macrobid] 100 mg PO DAILY
Oxybutynin Chloride [Ditropan] 5 mg PO BID
Pantoprazole [Protonix] 20 mg PO DAILY
Polyethylene Glycol Powder [Miralax] 17 grams PO DAILY
03/23/24 18:00
Enoxaparin Sodium [Lovenox] 40 mg SC QPM
Sennosides [Senokot] 8.6 mg PO QPM
03/23/24 22:00
Alprazolam [Xanax] 0.5 mg PO HS
Donepezil [Aricept] 5 mg PO HS
Melatonin 5 mg PO HS
Mirtazapine [Remeron] 45 mg PO HS
Rosuvastatin Calcium [Crestor] 5 mg PO HS
Zolpidem Tartrate [Ambien] 10 mg PO HS
Abnormal Lab Results
03/22/24
18:37
MCH 31.7 H pg
(27.0-31.0)
Monocytes % 11.3 H %
(1.7-9.3)
Sodium 133 L mmol/L
(135-145)
Glucose 111 H mg/dl
(70-99)
AST 68 H U/L
(14-36)
ALT 49 H U/L
(0-35)
03/22/24 18:37
03/22/24 18:37
Vital Signs
Initial and Last Documented VS:
Initial Vital Signs
Temp Pulse Resp BP Pulse Ox
98.6 F 78 16 142/67 98
03/22/24 18:07 03/22/24 18:07 03/22/24 18:07 03/22/24 18:07 03/22/24 18:07
Last Documented Vital Signs
Temp Pulse Resp BP Pulse Ox
98.7 F 91 15 109/72 98
03/22/24 23:46 03/22/24 23:00 03/22/24 23:02 03/22/24 23:00 03/22/24 18:07
MDM/Problems Addressed
Differential Diagnosis Includes:
Partial small bowel obstruction, hernia, acute diverticulitis
MDM/Problems Addressed:
Patient presents with acute on chronic abdominal pain
Chronic conditions affecting care: Previous abdomnial surgery
Acute Exacerbation and/or Progression of Chronic Illness: Previous abdomnial surgery
*Radiology
Radiology exam reviewed: radiology read reviewed
*Pulse Oximetry
Patient hypoxic: no
*EKG
Interpreted by ED Provider?: NA
*Marine Engine Mechanic Interpretation
Rate: normal
Interpretation: normal
Rhythm: sinus
*Critical Care Note
Total Time (30-74mins, 75-104mins- exclusive of procedures): Not Applicable
Data Reviewed
Review of Other/Old Records Reveals: Discharge Summary (Discharge summary reviewed from 10/2023 when patient was admitted for abdominal pain and found to have a ventral hernia, urinary retention and hyponatremia)
Source: patient
Patient Management
Social determinants of health affecting care: Living situation and Strong social support
Discussion with other providers: Hospitalist and Other (Dr. Noble agreed to follow-up on patient)
ED Attending Note
-
Portions of this chart may have been created with voice recognition software.� Occasional wrong word or��sound alike� substitutions may have occurred due to the inherent limitations of voice recognition software.
Discharge Plan
Departure
Patient Disposition: Admit
Date of Disposition: 03/22/24
Time of Disposition: 21:49
Admit to: Med/Surg
Presentation/result/management discussed w/ accepting MD/DO: Hospitalist
Patient with high blood pressure during this ER visit?: Yes
Condition: Good
Covid-19: Not Applicable
Discharge Problem:
Abdominal wall hernia
Interventions
Interventions:
*Risk Screen - Suicide Last Done: 03/22/24 18:07
*General Assessment Last Done: 03/22/24 18:07
*Neglect/Abuse Screening Last Done: 03/22/24 18:07
ED- Fall Risk Assessment Last Done: 03/22/24 18:34
*ED COVID-19 Vaccine History Last Done: 03/22/24 18:12
AW-Izvkyw-Xcyotgwqjv Assessment Last Done: 03/22/24 18:34
[2024-03-22 19:00] VITALS: BP 123/53
[2024-03-22 19:01] LABS: Lactic Acid 1.8 mmol/L (0.7-2.0)
[2024-03-22 19:02] LABS: ALT (SGPT) 49 U/L (0-35); AST (SGOT) 68 U/L (14-36); Albumin 4.6 g/dl (3.5-5.0); Alkaline Phosphatase 50 U/L (38-126); Blood Urea Nitrogen 11 mg/dl (7-17); Carbon Dioxide 26 mmol/L (22-30); Chloride 98 mmol/L (98-107); Estimated Creatinine Clearance 70 ml/min; Glucose 111 mg/dl (70-99); Lipase 109 U/L (23-300); Sodium 133 mmol/L (135-145); Total Bilirubin 0.7 mg/dl (0.2-1.3); Total Protein 7.3 g/dl (6.3-8.2); eGFR > 60.00
[2024-03-22 19:18] LABS: Potassium 4.9 mmol/L (3.5-5.1)
[2024-03-22 20:01] VITALS: BP 137/67
--- NOTE | 2024-03-22 22:21 | HPS.HSE ---
Family Physician
-
Family Physician: NOT KNOW UNKNOWN - PT DOES
Chief Complaint
-
Abdominal pain
History of Present Illness
This is an 83-year-old with past medical history significant for hypertension, asthma, dementia, prior bowel resection with ventral hernia who presents with unbearable abdominal pain that started today.
Patient has a history of diverticulitis complicated by perforation. She is status post bowel resection with end colostomy. Ultimately had a colostomy reversed. She developed a hernia at the site of the previous colostomy and had a hernia repair
about 2 years ago. This was all done at the [facility] by Dr. Miller. Since then she has been having pain in the surgical area and has been in the ED several times for this. Which time he has not had an indication for surgical
procedure and the pain resolved enough for her to return home. The pain is generally constant. Today the pain was worse than usual and spread across to her right abdomen. She denies any vomiting. She denies nausea. She denies constipation. She
has not had any diarrhea. She denies any fevers or chills. She denies any shortness of breath. No urinary symptoms.
Patient had 2 BMs this a.m. which were soft.
In the ED he was afebrile, blood pressure was 137/61, pulse was 72 and she was satting 98% on room air. CBC was unremarkable. Likewise chemistries were mostly unremarkable. LFTs unremarkable. CT of the abdomen pelvis showed a 4.5 cm left sided
anterior abdominal wall hernia which contains a loop of bowel without obstruction or strangulation.
Medical History
Past Medical History
Past Medical History: Reports Asthma, Dementia, HTN, Hypercholesterolemia and Psychiatric (depression anxiety)
Additional Past Medical History:
Diverticulitis
Past Surgical History: Reports Bowel Resection, Gynocological (Hysterectomy), Orthopedic (Left hip arthroplasty) and Urological
Additional Past Surgical History:
Adan procedure for perforated colon
Social History
Tobacco: Non-smoker
Alcohol: None
Drug: None
Personal:
Living: Assisted Living
Employment: Retired
Family History
Family History: Not pertinent
Allergies / Home Medications
Allergies reflects when Allergies were last updated in [facility].
Home Medications with original date entered in [facility]
Allergy/Medication List:
Allergies
Allergy/AdvReac Type Severity Reaction Status Date / Time
acetaminophen [From Percocet] Allergy Hives Verified 03/22/24 18:07
belladonna alkaloids Allergy Unknown Verified 03/22/24 18:07
ciprofloxacin [From Cipro] Allergy Unknown Verified 03/22/24 18:07
codeine Allergy Unknown Verified 03/22/24 18:07
ezetimibe [From Vytorin] Allergy Unknown Verified 03/22/24 18:07
gabapentin Allergy Unknown Verified 03/22/24 18:07
oxycodone [From Percocet] Allergy Hives Verified 03/22/24 18:07
plecanatide [From Trulance] Allergy Unknown Verified 03/22/24 18:07
propoxyphene Allergy Hives Verified 03/22/24 18:07
[From Darvocet-N]
sertraline Allergy Unknown Verified 03/22/24 18:07
simvastatin [From Vytorin] Allergy Unknown Verified 03/22/24 18:07
Influenza Virus Vaccines AdvReac Unknown Verified 03/22/24 18:07
Home Medications
alprazolam 0.5 mg tablet 0.5 mg PO HS 10/12/21
aluminum-magnesium hydroxide 200 mg-200 mg/5 mL oral suspension 20 ml PO Q8HPRN PRN indigestion 10/12/21
benzonatate 100 mg capsule 100 mg PO Q8HPRN PRN cough 10/12/21
carboxymethyl 0.5 %-glycerin 1 %-polysorb 80 0.5 %-PF eye dropperette (Refresh Optive Santy-3 (PF)) 2 drp BOTH EYES BID Eye condition 10/12/21
cetirizine 10 mg tablet 10 mg PO DAILY Allergies 10/12/21
estradiol 10 mcg vaginal insert 10 mcg vaginal WESA Hormonal agent 10/12/21
eszopiclone 3 mg tablet 3 mg PO HS Sleep 10/12/21
losartan 25 mg tablet 25 mg PO DAILY Blood Pressure 10/12/21
nitrofurantoin macrocrystal 100 mg capsule 100 mg PO DAILY Urinary Issue 10/12/21
rosuvastatin 5 mg tablet 5 mg PO HS High Cholesterol 10/12/21
sennosides 8.6 mg tablet (Senokot) 8.6 mg PO QPM Constipation 10/12/21
acetaminophen 500 mg tablet 1,000 mg PO TID MILD PAIN 08/29/22
donepezil 5 mg tablet 5 mg PO HS dementia 08/29/22
fluoride (sodium) 1.1 % dental paste (PreviDent 5000 Dry Mouth) 1 applic dental BID dental care 08/29/22
pantoprazole 20 mg tablet,delayed release 20 mg PO DAILY Gastrointestinal Issue 08/29/22
polyethylene glycol 3350 17 gram oral powder packet 8.5 grams PO [id number] PRN CONSTIPATION 08/29/22
tramadol 50 mg tablet 50 mg PO [id number] PRN severe pain 08/29/22
ascorbic acid (vitamin C) 500 mg tablet 500 mg PO DAILY Supplement 10/18/23
bisacodyl 10 mg rectal suppository (Dulcolax (bisacodyl)) 10 mg HI DAILYPRN PRN constipation 10/18/23
docusate sodium 100 mg capsule 100 mg PO BIDPRN PRN constipation 10/18/23
memantine 10 mg tablet 10 mg PO BID Neurological Condition 10/18/23
mirtazapine 45 mg tablet 45 mg PO HS Depression 10/18/23
multivitamin with minerals-folic acid 120 mcg chewable tablet (Women's Multivitamin Gummies) 2 tab PO DAILY Supplement 10/18/23
oxybutynin chloride 5 mg tablet 5 mg PO BID Urinary Issue 10/18/23
bismuth subsalicylate 525 mg/15 mL oral suspension 525 mg PO Q6HPRN PRN DIARRHEA 03/22/24
carbamide peroxide 6.5 % ear drops (Debrox) 5 drp EACH EAR MORALES 03/22/24
meclizine 12.5 mg tablet 12.5 mg PO TIDPRN PRN DIZZINESS 03/22/24
melatonin 5 mg tablet 5 mg PO HS 03/22/24
polyethylene glycol 3350 17 gram oral powder packet (Miralax) 17 g PO DAILY 03/22/24
sodium phosphates 19 gram-7 gram/118 mL enema (Fleet Enema) 118 ml HI DAILYPRN PRN CONSTIPATION 03/22/24
Review of Systems
-
History Source: Patient
Constitutional: Reports No Symptoms
EENT: Reports No Symptoms
Respiratory: Reports No Symptoms
Cardiac: Reports No Symptoms
Abdomen/GI: Reports Abdominal Pain
: Reports No Symptoms
Musculoskeletal: Reports No Symptoms
Skin: Reports No Symptoms
Neurological: Reports No Symptoms
Endocrine: Reports No Symptoms
Hematologic/Lymphatic: Reports No Symptoms
Psych: Reports No Symptoms
Physical Exam
Vital Signs
Vital Signs
Temp Pulse Resp BP Pulse Ox
98.6 F 77 17 137/67 98
03/22/24 18:07 03/22/24 20:15 03/22/24 20:15 03/22/24 20:01 03/22/24 18:07
Physical Exam
General: Well Developed, Well Nourished and Pain
HEENT: NormoCephalic, Anicteric, Moist mucous membranes and Atraumatic
Respiratory: Clear
Cardiac: S1/S2 and Regular Rhythm
Breast: Deferred by me
GI: Soft, Non Tender, Non Distended, Normal Bowel Sounds and Other (Left-sided scar with surrounding bulging. Tender to palpation. No erythema. Nothing reducible.)
Rectal: Deferred by Provider
Genito-urinary: Deferred by me
Musculoskeletal: No Clubbing, No Cyanosis and No Edema
Skin: Warm
Neuro: AO x 3 and Nonfocal/grossly intact
Hematologic/Lymphatic: No Lymphadenopathy
Psych: Calm
Laboratory Results
-
03/22/24 18:37
03/22/24 18:37
Laboratory Results
Lactic Acid 1.8 mmol/L (0.7-2.0) 03/22/24 18:37
Total Bilirubin 0.7 mg/dl (0.2-1.3) 03/22/24 18:37
AST 68 U/L (14-36) H 03/22/24 18:37
ALT 49 U/L (0-35) H 03/22/24 18:37
Alkaline Phosphatase 50 U/L (38-126) 03/22/24 18:37
Lipase 109 U/L (23-300) 03/22/24 18:37
Data Reviewed
-
CT Scan: Report Reviewed by me
Lab Data: Labs Reviewed by me
Old Records: Reviewed
Impression/Plan
-
IMPRESSION:
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
abdominal pain intermittently since then. She now comes in with worsening abdominal pain with radiation to the right side. She had bowel movements today. She denies any nausea or vomiting. She has no fevers or chills. No other alarm signs. CT
scan shows a loop of bowel contained in the abdominal wall hernia that is 4.5 cm left-sided. No ischemia, strangulation or obstruction.
PLAN:
Abdominal pain - Incarcerated bowel in ventral hernia w/o strangulation or obstruction.
- admit to med surg
- surg aware
- npo for now, pain medications and antiemetics
- d5 NS maintenance fluids
- surgery aware and consulted, will see in am
DVT ppx - lovenox sq for now
Code Status - Full Code
[2024-03-22 23:00] VITALS: BP 109/72
[2024-03-22 23:45] VITALS: BP 136/72
[2024-03-22] MEDS: D5/0.9% SODIUM CHLORIDE 1000 IV (23:46)
[2024-03-23] VITALS (23 sets, daily range): BP systolic 125–191; BP diastolic 61–94
[2024-03-23] MEDS: ULTRAM 50 MG PO (01:58)
[2024-03-23 06:32] LABS: Hematocrit 40.7 % (37.0-47.0); Hemoglobin 13.7 g/dL (12.0-16.0); Mean Corp Hgb Conc. 33.7 g/dL (33.0-37.0); Mean Corpuscular Hgb 31.2 pg (27.0-31.0); Mean Corpuscular Volume 92.7 fL (81.0-99.0); Mean Platelet Volume 9.9 fL (7.4-10.4); Platelet Count 203 10^3/uL (130-400); Red Blood Cell Count 4.39 10^6/uL (4.20-5.40); Red Cell Dist. Width 12.5 % (11.5-14.5); White Blood Cell Count 5.6 10^3/uL (4.8-10.8)
[2024-03-23 07:00] LABS: Blood Urea Nitrogen 8 mg/dl (7-17); Calcium 8.3 mg/dl (8.4-10.2); Carbon Dioxide 26 mmol/L (22-30); Chloride 101 mmol/L (98-107); Estimated Creatinine Clearance 70 ml/min; Glucose 114 mg/dl (70-99); Potassium 4.1 mmol/L (3.5-5.1); Sodium 135 mmol/L (135-145); eGFR > 60.00
[2024-03-23] MEDS: NAMENDA 10 MG PO ×2 (08:03→20:23)
[2024-03-23] MEDS: DITROPAN 5 MG PO ×2 (08:03→20:23)
[2024-03-23] MEDS: ZYRTEC 10 MG PO (08:04)
[2024-03-23] MEDS: COZAAR 25 MG PO (08:04)
[2024-03-23] MEDS: MACROBID 100 MG PO (08:04)
[2024-03-23] MEDS: PROTONIX 20 MG PO (08:06)
[2024-03-23] MEDS: MIRALAX 17 GRAMS PO (08:07)
[2024-03-23] MEDS: D5/0.9% SODIUM CHLORIDE 1000 IV (08:10)
--- NOTE | 2024-03-23 09:12 | CON.GS ---
Addendum entered and electronically signed by Francisco Javier Sanchez MD 03/23/24 15:55:
I saw and examined the patient independently.
The Packaging Sales Consultant's note was reviewed and I agree with the note, assessment and plan except where noted below.
Comment: This is an 83-year-old female with a history of Alzheimer's dementia, chronic urinary retention and previous ex lap for perforated diverticulitis with Adan's procedure back in 2020 and subsequent colostomy reversal in 2021. She has a
known incisional hernia at her previous stoma site that was last seen and evaluated in October. At that time she was minimally symptomatic and the family elected not to pursue surgery. Since then, it has become more symptomatic and she was
scheduled to follow-up at [facility] in a few weeks however her pain became unbearable and presented to our hospital for evaluation. Here CT scan demonstrated unobstructed loops of bowel, larger than her previous CT at the hernia site as well as
midline incisional hernias as well.
N.p.o., IV fluids, IV antibiotics on-call to the OR.
Will plan for robotic incisional hernia repair with mesh.
Risks/Benefits/Alternatives, expected postoperative course and possible complications (bleeding, infection, injury to surrounding structures, acute/chronic pain) discussed at length. Patient and POA wishes to proceed with surgery. All questions
answered. Telephone consent obtained.
I spent 75 minutes in total for the care of this patient today including direct patient care and counseling, reviewing labs, imaging, coordination of care, as well as documentation.
Original Note:
Medical History
-
Chief Complaint: abdominal pain
History of Present Illness:
Ms Camp is an 83 yo female with a h/o alzheimer's dementia, huyen, bladder repair surgery after childbirth with chronic urinary retention with scheduled CIC, ex lap for KRISTAN, perforated diverticulitis with Adan's procedure at [facility] in 2020 with
colostomy reversal in 2021 with known parastomal hernia previously evaluated by our service in October who presents with abdominal pain at the hernia site. She is overall a poor historian but does report she has been followed at [facility] for the hernia
and may have surgery scheduled in the next 2 weeks for repair but is unsure. She denies nausea and vomiting. She is significantly tender on exam to the hernia area but overall the hernia is soft and reducible but exam limited due to body habitus and
pain.
Past Medical History
Past Medical History: Asthma, Diverticulitis, HTN and Other (chronic constipation, urinary retention: self caths, UTI's, anemia, chronic pain, Alzheimer's dementia, IBS, major depression)
Past Surgical History: Bowel Resection (Adan's with colostomy creation (12/2020) and subsequent reversal (05/2021)), Cholecystectomy, Gynecological, Orthopedic (THR x2), Urological (Bladder repair after childbirth) and Other (EX lap for KRISTAN)
Social History
Tobacco: Non-Smoker
Alcohol: None
Personal:
Living: Assisted Living
Family History
Family History: Reviewed & Not Pertinent
Allergies / Home Medications
Allergy/AdvReac Type Severity Reaction Status Date / Time
acetaminophen [From Percocet] Allergy Hives Verified 03/22/24 18:07
belladonna alkaloids Allergy Unknown Verified 03/22/24 18:07
ciprofloxacin [From Cipro] Allergy Unknown Verified 03/22/24 18:07
codeine Allergy Unknown Verified 03/22/24 18:07
ezetimibe [From Vytorin] Allergy Unknown Verified 03/22/24 18:07
gabapentin Allergy Unknown Verified 03/22/24 18:07
oxycodone [From Percocet] Allergy Hives Verified 03/22/24 18:07
plecanatide [From Trulance] Allergy Unknown Verified 03/22/24 18:07
propoxyphene Allergy Hives Verified 03/22/24 18:07
[From Darvocet-N]
sertraline Allergy Unknown Verified 03/22/24 18:07
simvastatin [From Vytorin] Allergy Unknown Verified 03/22/24 18:07
Influenza Virus Vaccines AdvReac Unknown Verified 03/22/24 18:07
�Medication �Instructions �Recorded �Confirmed �Type
alprazolam 0.5 mg tablet 0.5 mg PO HS Sleep 10/12/21 03/22/24 History
aluminum-magnesium hydroxide 200 20 ml PO Q8HPRN PRN indigestion 10/12/21 03/22/24 History
mg-200 mg/5 mL oral suspension
benzonatate 100 mg capsule 100 mg PO Q8HPRN PRN cough 10/12/21 03/22/24 History
carboxymethyl 0.5 %-glycerin 1 2 drp BOTH EYES BID Eye condition 10/12/21 03/22/24 History
%-polysorb 80 0.5 %-PF eye
dropperette (Refresh Optive Santy-3
(PF))
cetirizine 10 mg tablet 10 mg PO DAILY Allergies 10/12/21 03/22/24 History
estradiol 10 mcg vaginal insert 10 mcg vaginal WESA Hormonal agent 10/12/21 03/22/24 History
eszopiclone 3 mg tablet 3 mg PO HS Sleep 10/12/21 03/22/24 History
losartan 25 mg tablet 25 mg PO DAILY Blood Pressure 10/12/21 03/22/24 History
nitrofurantoin macrocrystal 100 mg 100 mg PO DAILY Urinary Issue 10/12/21 03/22/24 History
capsule
rosuvastatin 5 mg tablet 5 mg PO HS High Cholesterol 10/12/21 03/22/24 History
sennosides 8.6 mg tablet (Senokot) 8.6 mg PO QPM Constipation 10/12/21 03/22/24 History
acetaminophen 500 mg tablet 1,000 mg PO TID MILD PAIN 08/29/22 03/22/24 History
donepezil 5 mg tablet 5 mg PO HS dementia 08/29/22 03/22/24 History
fluoride (sodium) 1.1 % dental 1 applic dental BID dental care 08/29/22 03/22/24 History
paste (PreviDent 5000 Dry Mouth)
pantoprazole 20 mg tablet,delayed 20 mg PO DAILY Gastrointestinal 08/29/22 03/22/24 History
release Issue
polyethylene glycol 3350 17 gram 8.5 grams PO [id number] PRN 08/29/22 03/22/24 History
oral powder packet CONSTIPATION
tramadol 50 mg tablet 50 mg PO [id number] PRN severe pain 08/29/22 03/22/24 History
ascorbic acid (vitamin C) 500 mg 500 mg PO DAILY Supplement 10/18/23 03/22/24 History
tablet
bisacodyl 10 mg rectal suppository 10 mg NJ DAILYPRN PRN constipation 10/18/23 03/22/24 History
(Dulcolax (bisacodyl))
docusate sodium 100 mg capsule 100 mg PO BIDPRN PRN constipation 10/18/23 03/22/24 History
memantine 10 mg tablet 10 mg PO BID Neurological Condition 10/18/23 03/22/24 History
mirtazapine 45 mg tablet 45 mg PO HS Depression 10/18/23 03/22/24 History
multivitamin with minerals-folic 2 tab PO DAILY Supplement 10/18/23 03/22/24 History
acid 120 mcg chewable tablet
(Women's Multivitamin Gummies)
oxybutynin chloride 5 mg tablet 5 mg PO BID Urinary Issue 10/18/23 03/22/24 History
bismuth subsalicylate 525 mg/15 mL 525 mg PO Q6HPRN PRN DIARRHEA 03/22/24 03/22/24 History
oral suspension
carbamide peroxide 6.5 % ear drops 5 drp EACH EAR MORALES ear wax removal 03/22/24 03/22/24 History
(Debrox)
meclizine 12.5 mg tablet 12.5 mg PO TIDPRN PRN DIZZINESS 03/22/24 03/22/24 History
melatonin 5 mg tablet 5 mg PO HS Sleep 03/22/24 03/22/24 History
polyethylene glycol 3350 17 gram 17 g PO DAILY Constipation 03/22/24 03/22/24 History
oral powder packet (Miralax)
sodium phosphates 19 gram-7 118 ml NJ DAILYPRN PRN CONSTIPATION 03/22/24 03/22/24 History
gram/118 mL enema (Fleet Enema)
Review of Systems
-
Unable to obtain full review of systems at this time due to: Dementia
History Source: Patient
All other systems: Negative unless noted
A 10 point review of systems was completed, and was negative except as per HPI.
Physical Exam
Vital Signs
Temp Pulse Resp BP Pulse Ox
98 F 72 12 140/72 98
03/23/24 08:00 03/23/24 08:04 03/22/24 23:45 03/23/24 08:04 03/22/24 18:07
03/22/24 03/23/24 03/24/24
06:59 06:59 06:59
Actual Weight 74.1 kg
Body Mass Index (BMI) 29.4
Lab Results
03/23/24 05:51
03/23/24 05:51
WBC 5.6 10^3/uL (4.8-10.8) 03/23/24 05:51
Hgb 13.7 g/dL (12.0-16.0) 03/23/24 05:51
Hct 40.7 % (37.0-47.0) 03/23/24 05:51
Plt Count 203 10^3/uL (130-400) 03/23/24 05:51
Abs Immat Gran (auto) 0.0 10^3/uL (0-0.05) 03/22/24 18:37
Neutrophils % 55.8 % (42.2-75.2) 03/22/24 18:37
Physical Exam
General: Well Developed and Well Nourished; Negative Comfortable
HEENT: Moist Mucous Membranes
Respiratory: Non Labored Respirations
GI: Soft, Non Distended, Tender (severe to left parastomal hernia, mild generalized) and Other (Left parastomal hernia soft, reducible, tender)
Skin: Warm and Dry
Neuro: Awake, Alert and AO x 3
Psych: Calm
Data Reviewed
-
CT Scan: Image Personally Visualized and interpreted, Report Reviewed by me, Discussed with Physician and Discussed with Patient
Labs: Labs Reviewed by me, Discussed with Physician and Discussed with Patient
Old Records: Reviewed
Assessment / Plan
-
Ms Camp is an 83 yo female with a h/o Alzheimer's dementia, bladder repair surgery after childbirth with chronic urinary retention scheduled CIC, ex lap for KRISTAN, perforated diverticulitis with Daan's procedure at [facility] in 2020 with colostomy
reversal in 2021 with known parastomal hernia presenting with worsening pain to the site. The hernia itself is severely tender but soft and reducible. CT imaging notes increased size of hernia since presentation in October. Hernia does contain loop
of small bowel but does not appear to be obstructed on imaging. No evidence of bowel threat or compromise. AFVSS. Labs stable.
Patient reports that she is scheduled for surgery at [facility] in the next 2 weeks with phone call placed to family, Paola Jain to discuss. Markies notes that Ms Camp does not have surgery scheduled only an office visit with her prior surgeon.
Plan:
--analgesics as needed
--keep npo for the time being
--given the degree of pain, we will try to repair her hernia this admission pending OR availability.
--- NOTE | 2024-03-23 10:19 | W.SUR.PREOP ---
Pre-Operative Surgical Note
-
I have examined this patient prior to the performance of the scheduled procedure.
The patient's condition is unchanged from the time of the current History and
Physical and the patient is able to undergo the scheduled procedure.
[2024-03-23] MEDS: ANCEF 10 IV (10:22)
--- NOTE | 2024-03-23 10:30 | W.PN.HOSP.TC ---
Today's Communication/Plan
-
for surgical intervention
Assessment / Plan
Assessment / Plan
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
abdominal pain intermittently since then. She now comes in with worsening abdominal pain with radiation to the right side. She had bowel movements today. She denies any nausea or vomiting. She has no fevers or chills. No other alarm signs. CT
scan shows a loop of bowel contained in the abdominal wall hernia that is 4.5 cm left-sided. No ischemia, strangulation or obstruction.
PLAN:
Abdominal pain - Incarcerated bowel in ventral hernia w/o strangulation or obstruction.
- admit to med surg
- surg input appreciated, for planned surgery
discussed with Dr. Sanchez
- npo for now, pain medications and antiemetics
- d5 NS maintenance fluids
call placed and reviewed with ingrid Guevara as requested by patient
Mild SDAT
Hx of hyponatremia (10/18/23: Na 123) currently 135
Pt is at acceptable risk for planned emergent surgery
reviewed with SHA Alonzo
DVT ppx - lovenox sq for now
Code Status - Full Code
Anticipated Discharge: > 48 hours
Subjective/Interval History
-
Date of Service: March 23, 2024
Awake, alert, conversant
Objective Data
-
Labs:
Laboratory Results
03/23/24
05:51
WBC 5.6
Hgb 13.7
Hct 40.7
Plt Count 203
Sodium 135
Potassium 4.1
Chloride 101
Carbon Dioxide 26
BUN 8
Creatinine 0.6
Glucose 114 H
Calcium 8.3 L
Vital Signs:
Vital Signs
Temp Pulse Resp BP Pulse Ox
98 F 72 12 140/72 98
03/23/24 08:00 03/23/24 08:04 03/22/24 23:45 03/23/24 08:04 03/22/24 18:07
Review of Systems
-
History Source: Patient and Family (reviewed with Paola landno)
Constitutional: Denies Fever
EENT: Reports No Symptoms Reported
Respiratory: Reports No Symptoms
Cardiac: Reports No Symptoms
Abdomen/GI: Reports Abdominal Pain and Nausea; Denies Vomiting
Genitourinary: Reports No Symptoms
Physical Exam
-
General: Well Developed, Well Nourished and No Apparent Distress
HEENT: Normocephalic, Atraumatic and Moist Mucous Membranes
Respiratory: Clear to Auscultation; Negative Wheezes, Rales or Rhonchi
Cardiac: Regular Rhythm and S1/S2
GI: Soft, Tender and Distended (mildly distended); Negative Normal Bowel Sounds (hypoactive, but present BS)
Musculoskeletal: No Clubbing, No Cyanosis and No Edema
Neuro: Awake and Alert
--- NOTE | 2024-03-23 15:16 | W.IMMPOSTOP ---
Surgical Immed Post Op Note
-
Primary Surgeon: Francisco Javier Sanchez MD
Assisting Surgeon: None
Pre-op Diagnosis: Incisional hernia
Post-op Diagnosis: Same
Procedure Performed: Robotic incisional hernia repair with mesh (IPUM)
Anesthesia Type: General
Specimen / Cultures: None
Estimated Blood Loss: 11 cc
Complications: None
Operative Findings: 3 cm left rectus hernia along with multiple Austrian cheese hernias including an umbilical defect along the midline, the largest of this measured 1.5 cm. The midline defects were closed with a running 0 symmetric PDS suture in the
longitudinal direction while the stoma site hernia was closed with an 0 V-Loc 180 suture also in the longitudinal direction. The entire space was then reinforced with a 10 x [address] coated polypropylene mesh that was introduced
through a 12 mm port at the her stoma site and secured on peripherally and down the middle with 2-0 V-Loc 180 suture.
POST OP PLAN:
Imaging: None
Labs: Routine AM
Diet: Clears, advance to Regular as tolerated
Analgesia: Tylenol 650mg q6 Meghan, Maria Isabel 5mg q6 PRN, Dilaudid 0.5mg q2h PRN
Neuro/vascular checks: q4h
AC/AP: Hold Therapeutic AC, Ok for DVT PPx
Activity: Ad Iris, PT OT.
Wound/Incisions/Drains: Routine
Abx: None
Dispo: RNF, anticipate discharge as early as tomorrow pending pain control and clinical course.
--- NOTE | 2024-03-23 15:24 | OR.RPT ---
Operative Report
Operative Report
Patient Name: Rain Camp
: 1940
Date of Operation: 03/23/2024
Preoperative Diagnosis: Ventral incisional hernia
Postoperative Diagnosis: Ventral incisional hernias
Procedure(s):
Robotic Ventral incisional hernia repair with Intraperitoneal Underlay Mesh (IPUM)
Surgeon(s):
Dr. Sanchez
Patient Access Representative(s):
PAVEL Case
Anesthesia: General
Estimated Blood Loss: 11 cc
Urine Output: None
Drains/Lines/Implants:
10 x [address]
Specimens:
None
HPI/Surgical Indications:
This is an 83 year old female who presents with abdominal pain and found to have a symptom hernia at her prior stoma site incision. Risks/Benefits/Alternatives were discussed at length, and the patient along with her POA Paola Jain agreed to proceed
with surgery.
Operative Findings: 3 cm left rectus hernia along with multiple midline Moldovan cheese hernias including an umbilical defect along the midline, the largest of this measured 1.5 cm. The midline defects were closed with a running 0 symmetric PDS suture
in the longitudinal direction while the stoma site hernia was closed with an 0 V-Loc 180 suture also in the longitudinal direction. The entire space was then reinforced with a 10 x [address] coated polypropylene mesh that was
introduced through a 12 mm port at the her stoma site and secured on peripherally and down the middle with 2-0 V-Loc 180 suture.
Procedure Description:
The patient was brought to the Operating Room and placed in the supine position with the arms tucked. IV antibiotics were infused and Venodyne stockings placed. Following uneventful induction of general endotracheal anesthesia, an orogastric tube
were placed. The abdomen was prepped and draped in the usual sterile fashion. The abdomen was entered using a Veress technique which required 1 pass in the right upper quadrant, pneumoperitoneum to 15 mmHg was obtained without difficulty. An 8mm
trochar was passed through the abdominal wall roughly 12 cm laterally from the defect, we then confirmed that no inadvertent injury was made while passing the trocar or Veress needle. We then placed additional 8 mm ports in the right upper and
right lower quadrants. There was some omentum adherent to the anterior abdominal wall which was lysed Stearns. We then identified the stoma site hernia which at this point just contained preperitoneal fat as well as an umbilical defect these fat
pads were all taken down. As we did this we identified multiple midline Moldovan cheese hernias, the largest being 1.5 cm. The stoma site hernia measured roughly 3 cm. After ensuring all the fat had been taken down the final dimensions of the hernia
was 6 cm long by 4 cm wide. A 12 mm port was introduced through the stoma site hernia and used to advance our ruler, sutures and ultimately are 10 x 15 cm Bard coated polypropylene mesh. The midline defects were closed longitudinally using a
running 0 PDS symmetric suture. The stoma site hernia was also closed in the longitudinal direction using a 0 V-Loc 180 suture. Then using small stab incision and Endo Close device was introduced appropriately orient the mesh. The mesh was then
secured in its periphery with a running 2-0 PDS barbed V-Loc suture. The echo positioning system was removed and an additional suture down the longitudinal direction of the mesh was used again secure the mesh to the posterior rectus sheath. We
then used the tail of the 2 oh V-Loc to chandelier some of the omentum and preperitoneal fat that have been previously dissected to cover the superior portion of the mesh. Roughly 3/4 of the mesh was covered and only the inferior one quarter was
exposed to the underlying viscera. At this point the ports were removed and the robot was undocked. The incisions were closed with 4-0 Monocryl and dressed with Dermabond. Counts were correct and overall, the patient tolerated the procedure well
and was taken to the Recovery Room postoperatively in stable condition.
I was the attending physician and performed the procedure with assistance, from the FRICTION SAW OPERATOR above. I was present for all portions of the case, excluding skin closure.
Francisco Javier Sanchez MD
[2024-03-23] MEDS: DILAUDID 0.5 MG IV ×3 (15:38→18:16)
[2024-03-23] MEDS: APRESOLINE 5 MG IV ×2 (17:20→17:34)
[2024-03-23] MEDS: LOVENOX 40 MG SC (18:16)
--- NOTE | 2024-03-23 19:02 | PTCARENOTE ---
Pt admitted as post op into 1141 04. VSS, had been hypertensive in PACU. AO x 1-2, drowsy, c/o pain 9/10 throughout abdomen. Dilaudid given as ordered. Pt oriented to room, call saab in place.
[2024-03-23] MEDS: SENOKOT PO (20:21)
[2024-03-23] MEDS: AMBIEN PO (23:55)
[2024-03-23] MEDS: MELATONIN 5 MG PO (23:56)
[2024-03-23] MEDS: XANAX PO (23:56)
[2024-03-23] MEDS: REMERON 45 MG PO (23:56)
[2024-03-23] MEDS: CRESTOR 5 MG PO (23:57)
[2024-03-24] VITALS (8 sets, daily range): BP systolic 108–153; BP diastolic 54–82; PULSE 87; O2SAT 95
[2024-03-24] MEDS: DILAUDID 0.5 MG IV ×2 (00:15→05:13)
[2024-03-24] MEDS: ARICEPT PO (00:17)
[2024-03-24] MEDS: D5/0.9% SODIUM CHLORIDE 1000 IV ×2 (00:53→12:23)
--- NOTE | 2024-03-24 08:18 | W.PN.HOSP.TC ---
Addendum entered and electronically signed by Bobby Becker MD 03/24/24 18:29:
Pt was noted to have medial displacement of left eye and stroke alert called, when seen by me in room, pupil gaze had returned to normal
CT scan of head done and neuro wants MRI as well
reviewed situation with son in room
will recheck labs in AM
Original Note:
Today's Communication/Plan
-
CM consult for dispo
Assessment / Plan
Assessment / Plan
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
abdominal pain intermittently since then. She now comes in with worsening abdominal pain with radiation to the right side. Prior to admission she had bowel movements and denied any nausea or vomiting. She has no fevers or chills. No other alarm
signs. CT scan shows a loop of bowel contained in the abdominal wall hernia that is 4.5 cm left-sided. No ischemia, strangulation or obstruction. Pt underwent surgical intervention by Dr. Sanchez 03/23, POD#1
Pt more confused today, post anesthesia
D-i-L also concerned that pt has become cross eyed and has an appt with [facility] in 2 weeks for evaluation (developed prior to hospitalization)
Dementia with exacerbation
Mild SDAT
Hx of hyponatremia (10/18/23: Na 123) 135
labs today pending
P: advance diet as per surg
as per d-i-l was living in assisted living, [facility], will probably require short term SNF at time of dc. Will consult CM
DVT ppx - lovenox sq for now
call placed and reviewed with d-i-l 03/24
Pt on chronic Tramadol prior to admission
Code Status - Full Code
Anticipated Discharge: 24 - 48 hours
Subjective/Interval History
-
Date of Service: March 24, 2024
Awake, alert, but more confused than yesterday
Objective Data
-
Labs:
Laboratory Results
03/24/24
07:23
WBC Pending
Hgb Pending
Hct Pending
Plt Count Pending
Sodium Pending
Potassium Pending
Chloride Pending
Carbon Dioxide Pending
BUN Pending
Creatinine Pending
Glucose Pending
Calcium Pending
Vital Signs:
Vital Signs
Temp Pulse Resp BP Pulse Ox
98.0 F 85 18 108/57 95
03/24/24 07:00 03/24/24 07:00 03/24/24 07:00 03/24/24 07:00 03/24/24 07:00
I&O
03/23/24 03/24/24 03/25/24
06:59 06:59 06:59
Intake Total 1440 / 1440
Output Total 400 / 400
Balance 1040 / 1040
Review of Systems
-
History Source: Patient and Family (reviewed with Paola landon)
Constitutional: Denies Fever
EENT: Reports No Symptoms Reported
Respiratory: Reports No Symptoms
Cardiac: Reports No Symptoms
Abdomen/GI: Reports Abdominal Pain and Nausea; Denies Vomiting
Genitourinary: Reports No Symptoms
Physical Exam
-
General: Well Developed, Well Nourished and No Apparent Distress
HEENT: Normocephalic, Atraumatic and Moist Mucous Membranes
Respiratory: Clear to Auscultation; Negative Wheezes, Rales or Rhonchi
Cardiac: Regular Rhythm and S1/S2
GI: Soft, Nondistended, Normal Bowel Sounds (normal) and Tender (much less tender); Negative Distended
Musculoskeletal: No Clubbing, No Cyanosis and No Edema
Neuro: Awake and Alert (more confused)
[2024-03-24] MEDS: NAMENDA 10 MG PO ×2 (08:44→20:55)
[2024-03-24] MEDS: DITROPAN 5 MG PO ×2 (08:44→20:54)
[2024-03-24] MEDS: PROTONIX 20 MG PO (08:44)
[2024-03-24] MEDS: ZYRTEC 10 MG PO (08:45)
[2024-03-24] MEDS: MIRALAX 17 GRAMS PO (08:45)
[2024-03-24] MEDS: COZAAR 25 MG PO (09:38)
[2024-03-24] MEDS: MACROBID 100 MG PO (09:39)
[2024-03-24] MEDS: ULTRAM 50 MG PO (10:06)
[2024-03-24 10:32] LABS: Hematocrit 23.7 % (37.0-47.0); Mean Corp Hgb Conc. 34.6 g/dL (33.0-37.0); Mean Corpuscular Hgb 29.1 pg (27.0-31.0); Red Blood Cell Count 2.82 10^6/uL (4.20-5.40); Red Cell Dist. Width 15.6 % (11.5-14.5); White Blood Cell Count 5.9 10^3/uL (4.8-10.8)
[2024-03-24 10:38] LABS: Blood Urea Nitrogen 34 mg/dl (7-17); Carbon Dioxide 19 mmol/L (22-30); Chloride 110 mmol/L (98-107); Estimated Creatinine Clearance 25 ml/min; Glucose 75 mg/dl (70-99); Sodium 140 mmol/L (135-145); eGFR 29.94
[2024-03-24 11:10] LABS: Mean Platelet Volume 12.6 fL (7.4-10.4); Platelet Count 99 10^3/uL (130-400)
[2024-03-24 11:13] LABS: Hemoglobin 8.2 g/dL (12.0-16.0)
--- NOTE | 2024-03-24 11:51 | W.PN.GS2 ---
Today's Communication / Plan
-
15
Assessment / Plan
-
This is an 83-year-old female presented with a symptomatic left abdominal wall incisional hernia status post POD #1 robotic incisional hernia repair with mesh (IPUM+).Doing well, expected postoperative course.
Remains confused, this may be slightly exacerbated from her baseline Alzheimer's by a her acute illness and recent anesthesia.
Okay for regular diet
Pain control
CAROLYN, IV fluids infusing, will continue to monitor.
Stop nephrotoxic meds.
PT OT
General surgery will continue to follow, anticipate return to facility as early as tomorrow pending clinical course.
Subjective Data
-
Date of Service: March 24, 2024
Interval Events:
No acute events overnight. Slept well. Pain Controlled. Denies Nausea/Vomiting, +bowel function. Tolerating diet. Remains fairly confused.
Objective Data
-
Intake and Output
03/23/24 03/24/24 03/25/24
06:59 06:59 06:59
Intake Total 1440 / 1440
Output Total 400 / 400
Balance 1040 / 1040
Intake:
Oral fluids 240 / 240
IV fluids (Total) 1200 / 1200
Output:
Straight cath output 400 / 400
Other:
How many times incontinent 1
SATURATED amount urine
Vital Signs
Temp Pulse Resp BP Pulse Ox
98.0 F 85 18 108/57 95
03/24/24 07:00 03/24/24 09:38 03/24/24 07:00 03/24/24 09:38 03/24/24 07:00
Lab Results
03/24/24 09:30
03/24/24 09:28
Calcium 8.0 mg/dl (8.4-10.2) L 03/24/24 09:28
Total Bilirubin 0.7 mg/dl (0.2-1.3) 03/22/24 18:37
AST 68 U/L (14-36) H 03/22/24 18:37
ALT 49 U/L (0-35) H 03/22/24 18:37
Alkaline Phosphatase 50 U/L (38-126) 03/22/24 18:37
Total Protein 7.3 g/dl (6.3-8.2) 03/22/24 18:37
Albumin 4.6 g/dl (3.5-5.0) 03/22/24 18:37
Physical Exam
-
GENERAL/NEURO: Awake, Alert, no distress, confused
CHEST: Unlabored breathing on RA
ABDOMEN: Soft, Non-Tender, Non-Distended, incisions clean dry and intact. No impulse noted over the former stoma site
--- NOTE | 2024-03-24 13:08 | PN.CDI ---
CDI
- -
CDI:
Physician Documentation Request
Admit Date: 03/22/24 22:27
Dear Doctor Eugenio,
Patient is s/p ventral incisional hernia repair.
Creatinine results:
Laboratory Tests
03/22/24 03/23/24 03/24/24
18:37 05:51 09:28
Creatinine 0.6 0.6 1.7 H
Could you please provide a diagnosis that supports the above lab abnormalities and additional evaluation, monitoring:
CAROLYN
Abnormal lab value clinically insignificant
Other
Criteria for CAROLYN*
1 Increase in serum creatinine by > or = to 0.3 mg/dL (> or = to 26.5 micromol/L) within 48 hours, OR
2 Increase in serum creatinine to > or = to 1.5 times baseline, which is known or presumed to have occurred within 7 days, OR
3 Urine volume < 0.5 nL/kg/hour for six hours
Use of terms such as suspected, likely, concern for, or probable (associated with a specific diagnosis that is being evaluated, monitored, or treated as if it exists) are acceptable and can be coded in the inpatient setting, when documented at the
time of discharge.
Thank you,
Celina Gunn RN, BSN
CDI Specialist
tiger text
Please use your independent medical judgment in providing your response.
--- NOTE | 2024-03-24 13:13 | PN.CDI ---
CDI
- -
CDI:
Physician Documentation Request
Admit Date: 03/22/24 22:27
Dear Doctor Eugenio,
Patient is POD #1 robotic incisional hernia repair with mesh
Recent H/H results:
03/22/24 03/23/24 03/24/24
18:37 05:51 09:30
Hgb 14.5 13.7 8.2 L D
Hct 42.3 40.7 23.7 L
Could you please provide a diagnosis that supports the above lab abnormalities and additional evaluation, monitoring:
Acute blood loss anemia
Anemia other please specify
Abnormal lab value clinically insignificant
Other
Use of terms such as suspected, likely, concern for, or probable (associated with a specific diagnosis that is being evaluated, monitored, or treated as if it exists) are acceptable and can be coded in the inpatient setting, when documented at the
time of discharge.
Thank you,
Celina Gunn RN, BSN
CDI Specialist
tiger text
Please use your independent medical judgment in providing your response.
--- NOTE | 2024-03-24 14:04 | PTCARENOTE ---
A Stroke alert was called on this pt. Son noticed that patient's left eye was crossing inward; son notified RN and a stroke alert was called. Pt has nystagmus in left eye, no facial droop or weekness noted in upper or lower extremities. Pt is AO
x1-2 at baseline, able to answer most questions. Pt sent to CT scan.
--- NOTE | 2024-03-24 14:05 | CON.NEURO ---
Consultation
Order
Date of Consultation: 03/24/24
Reason for Consult: stroke alert
Neurology Consultation Note.
HPI: This is an 83-year-old woman who presented to [facility] on 03/22/2024 with abdominal pain. Stroke alert was initiated after patient's son noted change in extraocular movements. Last time seen normal�unknown.
The patient reports no complaints.
Review of vital signs was notable for blood pressure elevation up to 191/88 at 1553 on 03/23/2024
Ms. Lyle was seen by neurology service on 08/30/2022 for the left eye ptosis and diplopia. 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
Brain MRi at that time showed a mild asymmetric non-masslike enhancement in the left retro-orbital fat, that was not present on repeat face MRI done the following day.
PDMP:Alprazolam 0.5 Mg�30 tabs filled in on
Labs: Hemoglobin�8.2, platelets�99, normal sodium, creatinine�1.7.
CT head wo contrast�no acute infarcts, general atrophy.
Face/neck/head brain MRI(08/31/2022)-subtle disconjugate gaze with slightly greater lateral deviation of the left globe compared to the right.
MAR: Hydromorphone 0.5 mg administered on 03/24/24 at 00:15, 05:13, tramadol 50 mg administered at 10:06
PMH: atrial fibrillation, DLP, dementia, left eye 'stroke ([facility]), chronic pain syndrome, OA, Vitamin B 12 deficiency, BPPV, IBS, hypothyroidism, hepatic steatosis, recurrent UTIs, insomnia, JOVITA, MDD
PSH: Robotic Ventral incisional hernia repair with Intraperitoneal Underlay Mesh(03/23/2024), Cholecystectomy
SH: senior care resident, retired homemaker, ambulates with a walker, non-smoker
FH: Not contributory to current presentation
All: Gabapentin, procainamide, oxycodone, Vytorin, codeine, ciprofloxacin, belladonna, acetaminophen, influenza virus vaccine, simvastatin, sertraline Darvocet
ROS: Limited due to poor attention.
General: Well developed. In no acute distress.
Cardio: Regular rate and rhythm. Extremities are without cyanosis or edema.
Neuro:
Mental Status: Alert, oriented to name, person. No hemineglect. Follows simple requests intermittently. Nonfluent. Impaired comprehension and attention. Increased processing time
Cranial Nerves: OD 3mm, min reactive, OS 2.5 mm, min reactive. R lateral gaze palsy. Nystagmus on the left on the right lateral gaze. BTT BL No ptosis. Face symmetric. Preserved hearing. No dysarthria.
Motor: No pronator or arm drift.
Reflexes: Bilateral grasp
Sensory: Limited exam due to poor attention
Coordination: No tremors, clonic movements.
Gait: deferred
Assessment and Plan:
I. 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 Not a candidate for IV TNK due to recent surgery
II. Encephalopathy (vascular, toxic, metabolic, neurodegenerative).
III. History of A-fib.
-Telemetry monitoring
-Fall precautions
-Please check vital signs, obtain EKG.
-please check TFTs, LDL, hemoglobin A1c, B12, MG panel, ESR, CRP.
-Start aspirin 81 mg once a day and Plavix 75 mg once a day for 21 days
-Brain MRI without jovita
-MRA head/neck wo jovita
-Please obtain medical records from [facility] for review
-DVT prophylaxis.
I personally reviewed all radiology and labs along with past medical records pertinent to current medical problems. Total time spent in patient care is 60 minutes.
Thank you for allowing us to participate in the care of this patient. We will continue to follow. Please do not hesitate to contact us with any questions or concerns.
Subjective/Objective
Subjective Data
Date of Service: March 24, 2024
Objective Data
Vital Signs
Temp Pulse Resp BP Pulse Ox
36.7 C 85 18 108/57 95
03/24/24 07:00 03/24/24 09:38 03/24/24 07:00 03/24/24 09:38 03/24/24 07:00
Lab Results
03/24/24 09:30
03/24/24:28
Sodium 140 mmol/L (135-145) 03/24/24
Potassium 4.0 mmol/L (3.5-5.1) 03/24/24
BUN 34 mg/dl (7-17) H 03/24/24
Glucose 75 mg/dl (70-99) 03/24/24
Calcium 8.0 mg/dl (8.4-10.2) L 03/24/24:
Patient Allergies
acetaminophen [From Percocet] Allergy (Verified 03/22/24 18:07)
Hives
belladonna alkaloids Allergy (Verified 03/22/24 18:07)
Unknown
ciprofloxacin [From Cipro] Allergy (Verified 03/22/24 18:07)
Unknown
codeine Allergy (Verified 03/22/24 18:07)
Unknown
ezetimibe [From Vytorin] Allergy (Verified 03/22/24 18:07)
Unknown
gabapentin Allergy (Verified 03/22/24 18:07)
Unknown
oxycodone [From Percocet] Allergy (Verified 03/22/24 18:07)
Hives
plecanatide [From Trulance] Allergy (Verified 03/22/24 18:07)
Unknown
propoxyphene [From Darvocet-N] Allergy (Verified 03/22/24 18:07)
Hives
sertraline Allergy (Verified 03/22/24 18:07)
Unknown
simvastatin [From Vytorin] Allergy (Verified 03/22/24 18:07)
Unknown
Influenza Virus Vaccines Adverse Reaction (Verified 03/22/24 18:07)
Unknown
Medications
-
Active Medications
Generic Name Dose Route Start Last Admin
Trade Name Freq PRN Reason Stop Dose Admin
Acetaminophen 650 mg 03/22/24 23:13
Acetaminophen 325 Mg Tablet PO 04/19/24 23:12
Q4HPRN PRN
mild pain/GUTIÉRREZ/temp> 100.4F
Alprazolam 0.5 mg 03/23/24 22:00 03/23/24 23:56
Alprazolam 0.5 Mg Tablet PO 04/20/24 21:59 Not Given
HS NOBLE
Bisacodyl 10 mg 03/22/24 23:13
Bisacodyl 10 Mg Rectal Suppository RECTAL 04/19/24 23:12
[id number] PRN
constipation
Cetirizine HCl 10 mg 03/23/24 08:00 03/24/24 08:45
Cetirizine Hcl 10 Mg Tablet PO 04/20/24 07:59 10 mg
DAILY NOBLE Administration
Donepezil HCl 5 mg 03/23/24 22:00 03/24/24 00:17
Donepezil 5 Mg Tablet PO 04/20/24 21:59 Not Given
HS NOBLE
Heparin Sodium 5,000 units 03/24/24 20:00
Heparin 5,000 Units/Ml 1 Ml Vial SC 04/21/24 19:59
Q12 NOBLE
Hydromorphone HCl 0.5 mg 03/22/24 23:13 03/24/24 05:13
Hydromorphone 0.5 Mg/0.5 Ml Syringe IV 04/05/24 23:12 0.5 mg
Q4HPRN PRN Administration
severe pain
Dextrose/Sodium Chloride 1,000 mls @ 100 mls/hr 03/22/24 23:13 03/24/24 12:23
D5/0.9% Sodium Chloride IV 1,000 mls
.Q10H NOBLE Administration
Losartan Potassium 25 mg 03/23/24 08:00 03/24/24 09:38
Losartan 25 Mg Tablet PO 04/20/24 07:59 25 mg
DAILY NOBLE Administration
Meclizine HCl 12.5 mg 03/22/24 23:13
Meclizine 12.5 Mg Tablet PO 04/19/24 23:12
TIDPRN PRN
DIZZINESS
Melatonin 5 mg 03/23/24 22:00 03/23/24 23:56
Melatonin 5 Mg Tablet PO 04/20/24 21:59 5 mg
HS NOBLE Administration
Memantine 10 mg 03/23/24 08:00 03/24/24 08:44
Memantine 10 Mg Tablet PO 04/20/24 07:59 10 mg
BID NOBLE Administration
Mirtazapine 45 mg 03/23/24 22:00 03/23/24 23:56
Mirtazapine 15 Mg Regular Release Tablet PO 04/20/24 21:59 45 mg
HS NOBLE Administration
Nitrofurantoin Macrocrystals 100 mg 03/23/24 08:00 03/24/24 09:39
Nitrofurantoin Monohydrate 100 Mg Capsule PO 04/20/24 07:59 100 mg
DAILY NOBLE Administration
Ondansetron HCl 4 mg 03/22/24 23:13
Ondansetron 4 Mg/2 Ml Vial IV 04/19/24 23:12
Q6HPRN PRN
nausea and vomiting
Oxybutynin Chloride 5 mg 03/23/24 08:00 03/24/24 08:44
Oxybutynin 5 Mg Tablet PO 04/20/24 07:59 5 mg
BID NOBLE Administration
Pantoprazole Sodium 20 mg 03/23/24 08:00 03/24/24 08:44
Pantoprazole 20 Mg Delayed Release Tablet PO 04/20/24 07:59 20 mg
DAILY NOBLE Administration
Polyethylene Glycol 17 grams 03/23/24 08:00 03/24/24 08:45
Polyethylene Glycol Powder 17 Grams Packet PO 04/20/24 07:59 17 grams
DAILY NOBLE Administration
Rosuvastatin Calcium 5 mg 03/23/24 22:00 03/23/24 23:57
Rosuvastatin (Crestor) 5 Mg Tablet PO 04/20/24 21:59 5 mg
HS NOBLE Administration
Sennosides 8.6 mg 03/23/24 18:00 03/23/24 20:21
Sennosides (Senokot) 8.6 Mg Tablet PO 04/20/24 17:59 Not Given
QPM NOBLE
Sodium Chloride 0 flush 03/22/24 23:00
Sodium Chloride 0.9% (Flush) Syringe IV 04/19/24 22:59
PER PROTOCOL NOBLE
Tramadol HCl 50 mg 03/22/24 23:13 03/24/24 10:06
Tramadol Hcl 50 Mg Tablet PO 04/19/24 23:12 50 mg
Q6HPRN PRN Administration
moderate pain
Zolpidem Tartrate 10 mg 03/23/24 22:00 03/23/24 23:55
Zolpidem Tartrate 5 Mg Tablet PO 04/20/24 21:59 Not Given
HS NOBLE
Home Medications
�Medication �Instructions �Recorded
alprazolam 0.5 mg tablet 0.5 mg PO HS Sleep 10/12/21
aluminum-magnesium hydroxide 200 20 ml PO Q8HPRN PRN indigestion 10/12/21
mg-200 mg/5 mL oral suspension
benzonatate 100 mg capsule 100 mg PO Q8HPRN PRN cough 10/12/21
carboxymethyl 0.5 %-glycerin 1 2 drp BOTH EYES BID Eye condition 10/12/21
%-polysorb 80 0.5 %-PF eye
dropperette (Refresh Optive Santy-3
(PF))
cetirizine 10 mg tablet 10 mg PO DAILY Allergies 10/12/21
estradiol 10 mcg vaginal insert 10 mcg vaginal WESA Hormonal agent 10/12/21
eszopiclone 3 mg tablet 3 mg PO HS Sleep 10/12/21
losartan 25 mg tablet 25 mg PO DAILY Blood Pressure 10/12/21
nitrofurantoin macrocrystal 100 mg 100 mg PO DAILY Urinary Issue 10/12/21
capsule
rosuvastatin 5 mg tablet 5 mg PO HS High Cholesterol 10/12/21
sennosides 8.6 mg tablet (Senokot) 8.6 mg PO QPM Constipation 10/12/21
acetaminophen 500 mg tablet 1,000 mg PO TID MILD PAIN 08/29/22
donepezil 5 mg tablet 5 mg PO HS dementia 08/29/22
fluoride (sodium) 1.1 % dental 1 applic dental BID dental care 08/29/22
paste (PreviDent 5000 Dry Mouth)
pantoprazole 20 mg tablet,delayed 20 mg PO DAILY Gastrointestinal 08/29/22
release Issue
polyethylene glycol 3350 17 gram 8.5 grams PO [id number] PRN 08/29/22
oral powder packet CONSTIPATION
tramadol 50 mg tablet 50 mg PO [id number] PRN severe pain 08/29/22
ascorbic acid (vitamin C) 500 mg 500 mg PO DAILY Supplement 10/18/23
tablet
bisacodyl 10 mg rectal suppository 10 mg MS DAILYPRN PRN constipation 10/18/23
(Dulcolax (bisacodyl))
docusate sodium 100 mg capsule 100 mg PO BIDPRN PRN constipation 10/18/23
memantine 10 mg tablet 10 mg PO BID Neurological Condition 10/18/23
mirtazapine 45 mg tablet 45 mg PO HS Depression 10/18/23
multivitamin with minerals-folic 2 tab PO DAILY Supplement 10/18/23
acid 120 mcg chewable tablet
(Women's Multivitamin Gummies)
oxybutynin chloride 5 mg tablet 5 mg PO BID Urinary Issue 10/18/23
bismuth subsalicylate 525 mg/15 mL 525 mg PO Q6HPRN PRN DIARRHEA 03/22/24
oral suspension
carbamide peroxide 6.5 % ear drops 5 drp EACH EAR MORALES ear wax removal 03/22/24
(Debrox)
meclizine 12.5 mg tablet 12.5 mg PO TIDPRN PRN DIZZINESS 03/22/24
melatonin 5 mg tablet 5 mg PO HS Sleep 03/22/24
polyethylene glycol 3350 17 gram 17 g PO DAILY Constipation 03/22/24
oral powder packet (Miralax)
sodium phosphates 19 gram-7 118 ml MS DAILYPRN PRN CONSTIPATION 03/22/24
gram/118 mL enema (Fleet Enema)
Vital Signs and Labs
-
Vital Signs and Labs:
Vital Signs
Temp Pulse Resp BP Pulse Ox
36.7 C 85 18 108/57 95
03/24/24 07:00 03/24/24 09:38 03/24/24 07:00 03/24/24 09:38 03/24/24 07:00
Lab Results
03/24/24 09:30
03/24/24 09:28
Sodium 140 mmol/L (135-145) 03/24/24 09:28
Potassium 4.0 mmol/L (3.5-5.1) 03/24/24 09:28
BUN 34 mg/dl (7-17) H 03/24/24 09:28
Glucose 75 mg/dl (70-99) 03/24/24 09:28
Calcium 8.0 mg/dl (8.4-10.2) L 03/24/24 09:28
Medications
-
Medications:
Generic Name Dose Route Start Last Admin
Trade Name Freq PRN Reason Stop Dose Admin
Acetaminophen 650 mg 03/22/24 23:13
Acetaminophen 325 Mg Tablet PO 04/19/24 23:12
Q4HPRN PRN
mild pain/GUTIÉRREZ/temp> 100.4F
Alprazolam 0.5 mg 03/23/24 22:00 03/23/24 23:56
Alprazolam 0.5 Mg Tablet PO 04/20/24 21:59 Not Given
HS NOBLE
Bisacodyl 10 mg 03/22/24 23:13
Bisacodyl 10 Mg Rectal Suppository RECTAL 04/19/24 23:12
[id number] PRN
constipation
Cetirizine HCl 10 mg 03/23/24 08:00 03/24/24 08:45
Cetirizine Hcl 10 Mg Tablet PO 04/20/24 07:59 10 mg
DAILY NOBLE Administration
Donepezil HCl 5 mg 03/23/24 22:00 03/24/24 00:17
Donepezil 5 Mg Tablet PO 04/20/24 21:59 Not Given
HS NOBLE
Heparin Sodium 5,000 units 03/24/24 20:00
Heparin 5,000 Units/Ml 1 Ml Vial SC 04/21/24 19:59
Q12 NOBLE
Hydromorphone HCl 0.5 mg 03/22/24 23:13 03/24/24 05:13
Hydromorphone 0.5 Mg/0.5 Ml Syringe IV 04/05/24 23:12 0.5 mg
Q4HPRN PRN Administration
severe pain
Dextrose/Sodium Chloride 1,000 mls @ 100 mls/hr 03/22/24 23:13 03/24/24 12:23
D5/0.9% Sodium Chloride IV 1,000 mls
.Q10H NOBLE Administration
Losartan Potassium 25 mg 03/23/24 08:00 03/24/24 09:38
Losartan 25 Mg Tablet PO 04/20/24 07:59 25 mg
DAILY NOBLE Administration
Meclizine HCl 12.5 mg 03/22/24 23:13
Meclizine 12.5 Mg Tablet PO 04/19/24 23:12
TIDPRN PRN
DIZZINESS
Melatonin 5 mg 03/23/24 22:00 03/23/24 23:56
Melatonin 5 Mg Tablet PO 04/20/24 21:59 5 mg
HS ONBLE Administration
Memantine 10 mg 03/23/24 08:00 03/24/24 08:44
Memantine 10 Mg Tablet PO 04/20/24 07:59 10 mg
BID NOBLE Administration
Mirtazapine 45 mg 03/23/24 22:00 03/23/24 23:56
Mirtazapine 15 Mg Regular Release Tablet PO 04/20/24 21:59 45 mg
HS NOBLE Administration
Nitrofurantoin Macrocrystals 100 mg 03/23/24 08:00 03/24/24 09:39
Nitrofurantoin Monohydrate 100 Mg Capsule PO 04/20/24 07:59 100 mg
DAILY NOBLE Administration
Ondansetron HCl 4 mg 03/22/24 23:13
Ondansetron 4 Mg/2 Ml Vial IV 04/19/24 23:12
Q6HPRN PRN
nausea and vomiting
Oxybutynin Chloride 5 mg 03/23/24 08:00 03/24/24 08:44
Oxybutynin 5 Mg Tablet PO 04/20/24 07:59 5 mg
BID NOBLE Administration
Pantoprazole Sodium 20 mg 03/23/24 08:00 03/24/24 08:44
Pantoprazole 20 Mg Delayed Release Tablet PO 04/20/24 07:59 20 mg
DAILY NOBLE Administration
Polyethylene Glycol 17 grams 03/23/24 08:00 03/24/24 08:45
Polyethylene Glycol Powder 17 Grams Packet PO 04/20/24 07:59 17 grams
DAILY NOBLE Administration
Rosuvastatin Calcium 5 mg 03/23/24 22:00 03/23/24 23:57
Rosuvastatin (Crestor) 5 Mg Tablet PO 04/20/24 21:59 5 mg
HS NOBLE Administration
Sennosides 8.6 mg 03/23/24 18:00 03/23/24 20:21
Sennosides (Senokot) 8.6 Mg Tablet PO 04/20/24 17:59 Not Given
QPM NOBLE
Sodium Chloride 0 flush 03/22/24 23:00
Sodium Chloride 0.9% (Flush) Syringe IV 04/19/24 22:59
PER PROTOCOL NOBLE
Tramadol HCl 50 mg 03/22/24 23:13 03/24/24 10:06
Tramadol Hcl 50 Mg Tablet PO 04/19/24 23:12 50 mg
Q6HPRN PRN Administration
moderate pain
Zolpidem Tartrate 10 mg 03/23/24 22:00 03/23/24 23:55
Zolpidem Tartrate 5 Mg Tablet PO 04/20/24 21:59 Not Given
HS NOBLE
Home Medications
-
Home Medications
alprazolam 0.5 mg tablet 0.5 mg PO HS Sleep 10/12/21
aluminum-magnesium hydroxide 200 mg-200 mg/5 mL oral suspension 20 ml PO Q8HPRN PRN indigestion 10/12/21
benzonatate 100 mg capsule 100 mg PO Q8HPRN PRN cough 10/12/21
carboxymethyl 0.5 %-glycerin 1 %-polysorb 80 0.5 %-PF eye dropperette (Refresh Optive Santy-3 (PF)) 2 drp BOTH EYES BID Eye condition 10/12/21
cetirizine 10 mg tablet 10 mg PO DAILY Allergies 10/12/21
estradiol 10 mcg vaginal insert 10 mcg vaginal WESA Hormonal agent 10/12/21
eszopiclone 3 mg tablet 3 mg PO HS Sleep 10/12/21
losartan 25 mg tablet 25 mg PO DAILY Blood Pressure 10/12/21
nitrofurantoin macrocrystal 100 mg capsule 100 mg PO DAILY Urinary Issue 10/12/21
rosuvastatin 5 mg tablet 5 mg PO HS High Cholesterol 10/12/21
sennosides 8.6 mg tablet (Senokot) 8.6 mg PO QPM Constipation 10/12/21
acetaminophen 500 mg tablet 1,000 mg PO TID MILD PAIN 08/29/22
donepezil 5 mg tablet 5 mg PO HS dementia 08/29/22
fluoride (sodium) 1.1 % dental paste (PreviDent 5000 Dry Mouth) 1 applic dental BID dental care 08/29/22
pantoprazole 20 mg tablet,delayed release 20 mg PO DAILY Gastrointestinal Issue 08/29/22
polyethylene glycol 3350 17 gram oral powder packet 8.5 grams PO [id number] PRN CONSTIPATION 08/29/22
tramadol 50 mg tablet 50 mg PO [id number] PRN severe pain 08/29/22
ascorbic acid (vitamin C) 500 mg tablet 500 mg PO DAILY Supplement 10/18/23
bisacodyl 10 mg rectal suppository (Dulcolax (bisacodyl)) 10 mg MS DAILYPRN PRN constipation 10/18/23
docusate sodium 100 mg capsule 100 mg PO BIDPRN PRN constipation 10/18/23
memantine 10 mg tablet 10 mg PO BID Neurological Condition 10/18/23
mirtazapine 45 mg tablet 45 mg PO HS Depression 10/18/23
multivitamin with minerals-folic acid 120 mcg chewable tablet (Women's Multivitamin Gummies) 2 tab PO DAILY Supplement 10/18/23
oxybutynin chloride 5 mg tablet 5 mg PO BID Urinary Issue 10/18/23
bismuth subsalicylate 525 mg/15 mL oral suspension 525 mg PO Q6HPRN PRN DIARRHEA 03/22/24
carbamide peroxide 6.5 % ear drops (Debrox) 5 drp EACH EAR MORALES ear wax removal 03/22/24
meclizine 12.5 mg tablet 12.5 mg PO TIDPRN PRN DIZZINESS 03/22/24
melatonin 5 mg tablet 5 mg PO HS Sleep 03/22/24
polyethylene glycol 3350 17 gram oral powder packet (Miralax) 17 g PO DAILY Constipation 03/22/24
sodium phosphates 19 gram-7 gram/118 mL enema (Fleet Enema) 118 ml MS DAILYPRN PRN CONSTIPATION 03/22/24
--- NOTE | 2024-03-24 14:40 | PTCARENOTE ---
Pt returned from CT scan NIHSS performed, pt still has some nystagmus in left eye, no other symptoms noted.
--- NOTE | 2024-03-24 15:06 | CM ---
[phone]- she has dementia, AxO 2x, pleasant no behaviorss
Pt is independent with ambulation, will use a SPC or rollator most days, at times no AD
Pt is a 1 person assist for personal care
Good skin integrity, no wounds or home 02
PCP- Ari Castrejon
Rx- DIL bring sin from the [place], U pharmacy is [facility] if needed
POD#1 hernia repart
SNF recs by therapy
Bedside meeting with pt and son, pt sleeping soundly
In agreement with SNF at [facility]
DIL/Paola is primary contact, she is a nurse at [place]
left for SNF admissions Radha [phone] to discuss SNF referral
Referral sent via [facility]
Discharge Disposition- anticipate [facility]
[2024-03-24] MEDS: ASPIR LOW (ENTERIC COATED) 81 MG PO (16:26)
[2024-03-24] MEDS: PLAVIX 75 MG PO (16:26)
--- NOTE | 2024-03-24 17:02 | W.PN.UPDATE ---
Update Note
Progress Note Update
Neurologist note reviewed, dual antiplatelet ordered and administered for 'right central nerve palsy -microvascular' in the setting of Alzheimer's and chronic neurological issues being worked up at [place].
MRI pending
Dual antiplatelets placed on hold
Hemoglobin noted to be 8.2 from 12. Low concern for active bleeding but will recheck hemoglobin and get a type and screen
Floor nurse, Dr. Becker and Dr. Servin updated
[2024-03-24 17:08] LABS: HDL Cholesterol 49 mg/dl; LDL Cholesterol, Calculated 65 mg/dl; Total Cholesterol 141 mg/dl (50-199); Triglyceride 139 mg/dl (10-149); Very Low Density Lipoprotein 27 mg/dl (0-30)
[2024-03-24 17:16] LABS: Erythrocyte Sed Rate 16 mm/hour (0-20)
[2024-03-24 17:28] LABS: Hematocrit 39.6 % (37.0-47.0); Hemoglobin 13.2 g/dL (12.0-16.0); Mean Corp Hgb Conc. 33.3 g/dL (33.0-37.0); Mean Corpuscular Hgb 31.4 pg (27.0-31.0); Mean Corpuscular Volume 94.3 fL (81.0-99.0); Mean Platelet Volume 9.7 fL (7.4-10.4); Platelet Count 197 10^3/uL (130-400); Red Cell Dist. Width 13.2 % (11.5-14.5); White Blood Cell Count 10.3 10^3/uL (4.8-10.8)
[2024-03-24 17:41] LABS: TSH Reflex To Free T4 0.52 uIU/ml (0.47-4.68)
[2024-03-24] MEDS: SENOKOT 8.6 MG PO (17:59)
[2024-03-24 18:36] LABS: Vitamin B12 932 pg/ml (239-931)
[2024-03-24] MEDS: HEPARIN 5000 UNITS SC (20:54)
[2024-03-24] MEDS: CRESTOR 5 MG PO (20:55)
[2024-03-24] MEDS: ARICEPT 5 MG PO (20:55)
[2024-03-24] MEDS: REMERON 45 MG PO (20:55)
[2024-03-24] MEDS: MELATONIN 5 MG PO (20:55)
[2024-03-24] MEDS: XANAX 0.5 MG PO (23:55)
[2024-03-24] MEDS: AMBIEN 10 MG PO (23:55)
[2024-03-25] MEDS: D5/0.9% SODIUM CHLORIDE IV (00:09)
[2024-03-25] MEDS: D5/0.9% SODIUM CHLORIDE 1000 IV ×3 (00:10→23:25)
[2024-03-25 03:14] VITALS: BP 144/82
[2024-03-25 06:37] LABS: % Basophils 0.2 % (0-2); % Eosinophils 0.5 % (0-6); % Immature Granulocytes 0.5 % (0-0.5); % Lymphocytes 21.4 % (20.5-51.1); % Monocytes 11.7 % (1.7-9.3); % Neutrophils 65.7 % (42.2-75.2); Absolute Lymphocytes 1.7 10^3/uL (1.2-3.4); Absolute Monocytes 0.9 10^3/uL (0.1-0.6); Absolute Neutrophils 5.3 10^3/uL (1.4-6.5); Hematocrit 39.4 % (37.0-47.0); Mean Corpuscular Hgb 31.3 pg (27.0-31.0); Mean Corpuscular Volume 94.7 fL (81.0-99.0); Mean Platelet Volume 9.3 fL (7.4-10.4); Nucleated Red Blood Cells % 0 %; Platelet Count 168 10^3/uL (130-400); Red Blood Cell Count 4.16 10^6/uL (4.20-5.40); Red Cell Dist. Width 13.2 % (11.5-14.5)
[2024-03-25 06:59] LABS: Blood Urea Nitrogen 11 mg/dl (7-17); Carbon Dioxide 23 mmol/L (22-30); Chloride 107 mmol/L (98-107); Estimated Creatinine Clearance 70 ml/min; Glucose 115 mg/dl (70-99); Potassium 4.2 mmol/L (3.5-5.1); Sodium 138 mmol/L (135-145); eGFR > 60.00
[2024-03-25 08:07] VITALS: BP 148/83
[2024-03-25 09:03] LABS: Glycohemoglobin (HgbA1c) 5.6 % (4.0-5.6)
--- NOTE | 2024-03-25 09:09 | W.PN.HOSP.TC ---
Today's Communication/Plan
-
MRI
Neuro input
pending above, pt will benefit from SNF rehab prior to returning to her assisted living situation
Assessment / Plan
Assessment / Plan
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
abdominal pain intermittently since then. She now comes in with worsening abdominal pain with radiation to the right side. Prior to admission she had bowel movements and denied any nausea or vomiting. She has no fevers or chills. No other alarm
signs. CT scan shows a loop of bowel contained in the abdominal wall hernia that is 4.5 cm left-sided. No ischemia, strangulation or obstruction. Pt underwent surgical intervention by Dr. Sanchez 03/23, POD#2
Pt much less confused today, fully alert and conversant, probably ~baseline
D-i-L also concerned that pt had become cross eyed 18 mos ago, resolved almost entirely, partial recurrence ~2 wks prior to coming and had an appt with [facility] in 2 weeks for evaluation (developed prior to hospitalization)
episode recurred yesterday, was more intense. Today less pronounced, but not resolved (?CN 6 palsy)
Dementia with exacerbation post anesthesia, better today
Mild SDAT
Hx of hyponatremia (10/18/23: Na 123) 135
03/25 138
Hgb 13.0 (lab 1/7 AM Hgb 8.2, most likely lab error and thus insignificant)
No evidence of CAROLYN, Creat exactly where it has been at 0.6, Creat of 1.7 most likely lab error
P: advance diet as per surg
as per d-i-l was living in assisted living, [facility], will probably require short term SNF at time of dc. Will consult CM
Await MRI and further input from neuro
reviewed situation with nursing
DVT ppx - lovenox sq for now
call placed and reviewed with d-i-l 03/25, 20 minutes
Pt on chronic Tramadol prior to admission
Code Status - Full Code
total time 60 minutes
Anticipated Discharge: 24 - 48 hours
Subjective/Interval History
-
Date of Service: March 25, 2024
Abdominal pain has lessened, passing flatus
Objective Data
-
Labs:
Laboratory Results
03/25/24
06:21
WBC 8.0
Hgb 13.0
Hct 39.4
Plt Count 168
Sodium 138
Potassium 4.2
Chloride 107
Carbon Dioxide 23
BUN 11
Creatinine 0.6
Glucose 115 H
Calcium 8.0 L
Vital Signs:
Vital Signs
Temp Pulse Resp BP Pulse Ox
98.1 F 84 18 148/83 94
03/25/24 08:07 03/25/24 08:07 03/25/24 08:07 03/25/24 08:07 03/25/24 08:07
I&O
03/24/24 03/25/24 03/26/24
06:59 06:59 06:59
Intake Total 1440 / 1440 1680 / 1680
Output Total 400 / 400
Balance 1040 / 1040 1680 / 1680
Review of Systems
-
History Source: Patient and Family (reviewed with barbi, Paola)
Constitutional: Denies Fever
EENT: Reports No Symptoms Reported
Respiratory: Reports No Symptoms
Cardiac: Reports No Symptoms
Abdomen/GI: Reports Abdominal Pain and Nausea; Denies Vomiting
Genitourinary: Reports No Symptoms
Physical Exam
-
General: Well Developed, Well Nourished and No Apparent Distress
HEENT: Normocephalic, Atraumatic and Moist Mucous Membranes
Respiratory: Clear to Auscultation; Negative Wheezes, Rales or Rhonchi
Cardiac: Regular Rhythm and S1/S2
GI: Soft, Nondistended, Normal Bowel Sounds (normal) and Tender (much less tender); Negative Distended
Musculoskeletal: No Clubbing, No Cyanosis and No Edema
Neuro: Awake, Alert (more confused), Oriented and Other (left eye with medial deviation, mild)
--- NOTE | 2024-03-25 09:16 | W.PN.GS2 ---
Today's Communication / Plan
-
MRI
Assessment / Plan
-
This is an 83-year-old female presented with a symptomatic left abdominal wall incisional hernia status post POD #2 robotic incisional hernia repair with mesh (IPUM+).Doing well, expected postoperative course.
Remains confused, this may be slightly exacerbated from her baseline Alzheimer's by a her acute illness and recent anesthesia.
Concern yesterday for change in extraocular movements, MRI is pending
DAPT initiated for the neuro changes with 1 dose administered and subsequently held due to post-op status
Okay for regular diet
Pain control
CAROLYN, IV fluids infusing, will continue to monitor.
Stop nephrotoxic meds.
PT OT
MRI
General surgery will continue to follow, anticipate return to facility as early as tomorrow pending clinical course.
Subjective Data
-
Date of Service: March 25, 2024
No complaints, denies n/v, adele PO, pain controlled
Objective Data
-
Intake and Output
03/24/24 03/25/24 03/26/24
06:59 06:59 06:59
Intake Total 1440 / 1440 1680 / 1680
Output Total 400 / 400
Balance 1040 / 1040 1680 / 1680
Intake:
Oral fluids 240 / 240 480 / 480
IV fluids (Total) 1200 / 1200 1200 / 1200
Output:
Straight cath output 400 / 400
Other:
How many times incontinent 3
MODERATE amount urine
How many times incontinent 1 1
SATURATED amount urine
Number of unmeasured liquid
stools
Rectum 1
Vital Signs
Temp Pulse Resp BP Pulse Ox
98.1 F 84 18 148/83 94
03/25/24 08:07 03/25/24 08:07 03/25/24 08:07 03/25/24 08:07 03/25/24 08:07
Lab Results
03/25/24 06:21
03/25/24 06:21
Calcium 8.0 mg/dl (8.4-10.2) L 03/25/24 06:21
Total Bilirubin 0.7 mg/dl (0.2-1.3) 03/22/24 18:37
AST 68 U/L (14-36) H 03/22/24 18:37
ALT 49 U/L (0-35) H 03/22/24 18:37
Alkaline Phosphatase 50 U/L (38-126) 03/22/24 18:37
Total Protein 7.3 g/dl (6.3-8.2) 03/22/24 18:37
Albumin 4.6 g/dl (3.5-5.0) 03/22/24 18:37
Physical Exam
-
Gen: NAD
Abd: soft, incisons cdi, approp ttp
--- NOTE | 2024-03-25 09:46 | W.PN.NEURO.1 ---
Today's Communication / Plan
-
.
Subjective/Objective
Subjective Data
Date of Service: March 25, 2024
Neurology follow-up note
Ms. Camp reports no complaints. She denies having diplopia, headache motor or sensory deficits.
ESR�16, CRP�26.3, supratherapeutic vitamin B12, LDL�65, normal TSH.
Brain MRI, EKG- pending.
Face/neck/head brain MRI(08/31/2022)-subtle disconjugate gaze with slightly greater lateral deviation of the left globe compared to the right.
MAR: Alprazolam 0.5 mg and Ambien 10 mg given on 03/24/24 at 23:55
PMH: PA A-Fib, DLP, dementia, left eye 'stroke ([facility]), chronic pain syndrome, OA, Vitamin B 12 deficiency, BPPV, IBS, hypothyroidism, hepatic steatosis, recurrent UTIs, insomnia, JOVITA, MDD
PSH: Robotic Ventral incisional hernia repair with Intraperitoneal Underlay Mesh(03/23/2024), Cholecystectomy
SH: snf resident, retired homemaker, ambulates with a walker, non-smoker
FH: Not contributory to current presentation
All: Gabapentin, procainamide, oxycodone, Vytorin, codeine, ciprofloxacin, belladonna, acetaminophen, influenza virus vaccine, simvastatin, sertraline Darvocet
ROS: Limited due to poor attention.
General: Well developed. In no acute distress.
Cardio: Regular rate and rhythm. Extremities are without cyanosis or edema.
Neuro:
Mental Status: Somnolent, oriented to name, month, year. Impaired attention. Nonfluent. Follows simple requests. Increased processing time
Cranial Nerves: Orthophoric primary gaze. pupils are 2.5 min reactive. L ptosis. BTT BL. Face symmetric. Preserved hearing. No dysarthria.
Motor: No pronator or arm drift.
Reflexes: Bilateral grasp
Sensory: Limited exam due to poor attention
Coordination: No tremors, myclonic movements.
Gait: deferred
Assessment and Plan:
I. TIA vs neuromuscular junction disorder
II. Encephalopathy (vascular, toxic, metabolic, neurodegenerative), clinically improved.
III. History of A-fib.
IV.
-Telemetry monitoring
-Fall precautions
-Continue aspirin 81 mg once a day and DC Plavix
-Brain MRI without jovita
-MRA head/neck wo jovita
-Please obtain medical records from [facility] for review
-DVT prophylaxis.
I personally reviewed all radiology and labs along with past medical records pertinent to current medical problems. Total time spent in patient care is 35 minutes.
Thank you for allowing us to participate in the care of this patient. We will continue to follow. Please do not hesitate to contact us with any questions or concerns.
Objective Data
Vital Signs
Temp Pulse Resp BP Pulse Ox
36.7 C 84 18 148/83 94
03/25/24 08:07 03/25/24 08:07 03/25/24 08:07 03/25/24 08:07 03/25/24 08:07
Lab Results
03/25/24 06:21
03/25/24 06:21
Sodium 138 mmol/L (135-145) 03/25/24 06:21
Potassium 4.2 mmol/L (3.5-5.1) 03/25/24 06:21
BUN 11 mg/dl (7-17) 03/25/24 06:21
Glucose 115 mg/dl (70-99) H 03/25/24 06:21
Calcium 8.0 mg/dl (8.4-10.2) L 03/25/24 06:21
LDL Cholesterol, Calc 65 mg/dl 03/24/24 16:32
Vitamin B12 932 pg/ml (239-931) H 03/24/24 16:32
Patient Allergies
acetaminophen [From Percocet] Allergy (Verified 03/22/24 18:07)
Hives
belladonna alkaloids Allergy (Verified 03/22/24 18:07)
Unknown
ciprofloxacin [From Cipro] Allergy (Verified 03/22/24 18:07)
Unknown
codeine Allergy (Verified 03/22/24 18:07)
Unknown
ezetimibe [From Vytorin] Allergy (Verified 03/22/24 18:07)
Unknown
gabapentin Allergy (Verified 03/22/24 18:07)
Unknown
oxycodone [From Percocet] Allergy (Verified 03/22/24 18:07)
Hives
plecanatide [From Trulance] Allergy (Verified 03/22/24 18:07)
Unknown
propoxyphene [From Darvocet-N] Allergy (Verified 03/22/24 18:07)
Hives
sertraline Allergy (Verified 03/22/24 18:07)
Unknown
simvastatin [From Vytorin] Allergy (Verified 03/22/24 18:07)
Unknown
Influenza Virus Vaccines Adverse Reaction (Verified 03/22/24 18:07)
Unknown
Vital Signs and Labs
-
Vital Signs and Labs:
Vital Signs
Temp Pulse Resp BP Pulse Ox
36.7 C 84 18 148/83 94
03/25/24 08:07 03/25/24 08:07 03/25/24 08:07 03/25/24 08:07 03/25/24 08:07
Lab Results
03/25/24 06:21
03/25/24 06:21
Sodium 138 mmol/L (135-145) 03/25/24 06:21
Potassium 4.2 mmol/L (3.5-5.1) 03/25/24 06:21
BUN 11 mg/dl (7-17) 03/25/24 06:21
Glucose 115 mg/dl (70-99) H 03/25/24 06:21
Calcium 8.0 mg/dl (8.4-10.2) L 03/25/24 06:21
LDL Cholesterol, Calc 65 mg/dl 03/24/24 16:32
Vitamin B12 932 pg/ml (239-931) H 03/24/24 16:32
Medications
-
Medications:
Generic Name Dose Route Start Last Admin
Trade Name Freq PRN Reason Stop Dose Admin
Acetaminophen 650 mg 03/22/24 23:13
Acetaminophen 325 Mg Tablet PO 04/19/24 23:12
Q4HPRN PRN
mild pain/GUTIÉRREZ/temp> 100.4F
Alprazolam 0.5 mg 03/23/24 22:00 03/24/24 23:55
Alprazolam 0.5 Mg Tablet PO 04/20/24 21:59 0.5 mg
HS NOBLE Administration
Alprazolam 0.25 mg 03/24/24 15:58
Alprazolam 0.25 Mg Tablet PO 04/21/24 15:57
ONCE PRN
20 MINS BEFORE MRI
Aspirin 81 mg 03/24/24 15:00 03/24/24 16:26
Aspirin 81 Mg (Enteric Coated) Tablet PO 04/21/24 14:59 81 mg
DAILY NOBLE Administration
Bisacodyl 10 mg 03/22/24 23:13
Bisacodyl 10 Mg Rectal Suppository RECTAL 04/19/24 23:12
[id number] PRN
constipation
Cetirizine HCl 10 mg 03/23/24 08:00 03/24/24 08:45
Cetirizine Hcl 10 Mg Tablet PO 04/20/24 07:59 10 mg
DAILY NOBLE Administration
Donepezil HCl 5 mg 03/23/24 22:00 03/24/24 20:55
Donepezil 5 Mg Tablet PO 04/20/24 21:59 5 mg
HS NOBLE Administration
Heparin Sodium 5,000 units 03/24/24 20:00 03/24/24 20:54
Heparin 5,000 Units/Ml 1 Ml Vial SC 04/21/24 19:59 5,000 units
Q12 NOBLE Administration
Hydromorphone HCl 0.5 mg 03/22/24 23:13 03/24/24 05:13
Hydromorphone 0.5 Mg/0.5 Ml Syringe IV 04/05/24 23:12 0.5 mg
Q4HPRN PRN Administration
severe pain
Dextrose/Sodium Chloride 1,000 mls @ 100 mls/hr 03/24/24 23:45 03/25/24 00:10
D5/0.9% Sodium Chloride IV 1,000 mls
.Q10H NOBLE Administration
Losartan Potassium 25 mg 03/23/24 08:00 03/24/24 09:38
Losartan 25 Mg Tablet PO 04/20/24 07:59 25 mg
DAILY NOBLE Administration
Meclizine HCl 12.5 mg 03/22/24 23:13
Meclizine 12.5 Mg Tablet PO 04/19/24 23:12
TIDPRN PRN
DIZZINESS
Melatonin 5 mg 03/23/24 22:00 03/24/24 20:55
Melatonin 5 Mg Tablet PO 04/20/24 21:59 5 mg
HS NOBLE Administration
Memantine 10 mg 03/23/24 08:00 03/24/24 20:55
Memantine 10 Mg Tablet PO 04/20/24 07:59 10 mg
BID NOBLE Administration
Mirtazapine 45 mg 03/23/24 22:00 03/24/24 20:55
Mirtazapine 15 Mg Regular Release Tablet PO 04/20/24 21:59 45 mg
HS NOBLE Administration
Nitrofurantoin Macrocrystals 100 mg 03/23/24 08:00 03/24/24 09:39
Nitrofurantoin Monohydrate 100 Mg Capsule PO 04/20/24 07:59 100 mg
DAILY NOBLE Administration
Ondansetron HCl 4 mg 03/22/24 23:13
Ondansetron 4 Mg/2 Ml Vial IV 04/19/24 23:12
Q6HPRN PRN
nausea and vomiting
Oxybutynin Chloride 5 mg 03/23/24 08:00 03/24/24 20:54
Oxybutynin 5 Mg Tablet PO 04/20/24 07:59 5 mg
BID NOBLE Administration
Pantoprazole Sodium 20 mg 03/23/24 08:00 03/24/24 08:44
Pantoprazole 20 Mg Delayed Release Tablet PO 04/20/24 07:59 20 mg
DAILY NOBLE Administration
Polyethylene Glycol 17 grams 03/23/24 08:00 03/24/24 08:45
Polyethylene Glycol Powder 17 Grams Packet PO 04/20/24 07:59 17 grams
DAILY NOBLE Administration
Rosuvastatin Calcium 5 mg 03/23/24 22:00 03/24/24 20:55
Rosuvastatin (Crestor) 5 Mg Tablet PO 04/20/24 21:59 5 mg
HS NOBLE Administration
Sennosides 8.6 mg 03/23/24 18:00 03/24/24 17:59
Sennosides (Senokot) 8.6 Mg Tablet PO 04/20/24 17:59 8.6 mg
QPM NOBLE Administration
Sodium Chloride 0 flush 03/22/24 23:00
Sodium Chloride 0.9% (Flush) Syringe IV 04/19/24 22:59
PER PROTOCOL NOBLE
Tramadol HCl 50 mg 03/22/24 23:13 03/24/24 10:06
Tramadol Hcl 50 Mg Tablet PO 04/19/24 23:12 50 mg
Q6HPRN PRN Administration
moderate pain
Zolpidem Tartrate 10 mg 03/23/24 22:00 03/24/24 23:55
Zolpidem Tartrate 5 Mg Tablet PO 04/20/24 21:59 10 mg
HS NOBLE Administration
Home Medications
-
Home Medications
alprazolam 0.5 mg tablet 0.5 mg PO HS Sleep 10/12/21
aluminum-magnesium hydroxide 200 mg-200 mg/5 mL oral suspension 20 ml PO Q8HPRN PRN indigestion 10/12/21
benzonatate 100 mg capsule 100 mg PO Q8HPRN PRN cough 10/12/21
carboxymethyl 0.5 %-glycerin 1 %-polysorb 80 0.5 %-PF eye dropperette (Refresh Optive Santy-3 (PF)) 2 drp BOTH EYES BID Eye condition 10/12/21
cetirizine 10 mg tablet 10 mg PO DAILY Allergies 10/12/21
estradiol 10 mcg vaginal insert 10 mcg vaginal WESA Hormonal agent 10/12/21
eszopiclone 3 mg tablet 3 mg PO HS Sleep 10/12/21
losartan 25 mg tablet 25 mg PO DAILY Blood Pressure 10/12/21
nitrofurantoin macrocrystal 100 mg capsule 100 mg PO DAILY Urinary Issue 10/12/21
rosuvastatin 5 mg tablet 5 mg PO HS High Cholesterol 10/12/21
sennosides 8.6 mg tablet (Senokot) 8.6 mg PO QPM Constipation 10/12/21
acetaminophen 500 mg tablet 1,000 mg PO TID MILD PAIN 08/29/22
donepezil 5 mg tablet 5 mg PO HS dementia 08/29/22
fluoride (sodium) 1.1 % dental paste (PreviDent 5000 Dry Mouth) 1 applic dental BID dental care 08/29/22
pantoprazole 20 mg tablet,delayed release 20 mg PO DAILY Gastrointestinal Issue 08/29/22
polyethylene glycol 3350 17 gram oral powder packet 8.5 grams PO [id number] PRN CONSTIPATION 08/29/22
tramadol 50 mg tablet 50 mg PO [id number] PRN severe pain 08/29/22
ascorbic acid (vitamin C) 500 mg tablet 500 mg PO DAILY Supplement 10/18/23
bisacodyl 10 mg rectal suppository (Dulcolax (bisacodyl)) 10 mg ND DAILYPRN PRN constipation 10/18/23
docusate sodium 100 mg capsule 100 mg PO BIDPRN PRN constipation 10/18/23
memantine 10 mg tablet 10 mg PO BID Neurological Condition 10/18/23
mirtazapine 45 mg tablet 45 mg PO HS Depression 10/18/23
multivitamin with minerals-folic acid 120 mcg chewable tablet (Women's Multivitamin Gummies) 2 tab PO DAILY Supplement 10/18/23
oxybutynin chloride 5 mg tablet 5 mg PO BID Urinary Issue 10/18/23
bismuth subsalicylate 525 mg/15 mL oral suspension 525 mg PO Q6HPRN PRN DIARRHEA 03/22/24
carbamide peroxide 6.5 % ear drops (Debrox) 5 drp EACH EAR MORALES ear wax removal 03/22/24
meclizine 12.5 mg tablet 12.5 mg PO TIDPRN PRN DIZZINESS 03/22/24
melatonin 5 mg tablet 5 mg PO HS Sleep 03/22/24
polyethylene glycol 3350 17 gram oral powder packet (Miralax) 17 g PO DAILY Constipation 03/22/24
sodium phosphates 19 gram-7 gram/118 mL enema (Fleet Enema) 118 ml ND DAILYPRN PRN CONSTIPATION 03/22/24
[2024-03-25] MEDS: HEPARIN 5000 UNITS SC ×2 (10:08→22:19)
[2024-03-25] MEDS: COZAAR 25 MG PO (10:09)
[2024-03-25] MEDS: MACROBID 100 MG PO (10:09)
[2024-03-25] MEDS: MIRALAX 17 GRAMS PO (10:09)
[2024-03-25] MEDS: ZYRTEC 10 MG PO (10:09)
[2024-03-25] MEDS: PROTONIX 20 MG PO (10:09)
[2024-03-25] MEDS: NAMENDA 10 MG PO ×2 (10:09→22:19)
[2024-03-25] MEDS: DITROPAN 5 MG PO ×2 (10:09→22:19)
--- NOTE | 2024-03-25 10:57 | CM ---
CM reviewed chart, reviewed with Hospitalist regarding discharge plan. Per Pat in Admissions at [facility], will be able to offer patient a bed when ready for discharge. CM will continue to update [facility] on discharge planning, will continue to
follow for all discharge planning needs.
Plan; [facility] when stable.
[2024-03-25] MEDS: XANAX 0.25 MG PO (12:59)
[2024-03-25] MEDS: ULTRAM 50 MG PO ×2 (13:00→23:25)
[2024-03-25 16:00] VITALS: BP 159/89
[2024-03-25] MEDS: SENOKOT 8.6 MG PO (18:25)
[2024-03-25] MEDS: ARICEPT 5 MG PO (22:19)
[2024-03-25] MEDS: XANAX 0.5 MG PO (22:19)
[2024-03-25] MEDS: CRESTOR 5 MG PO (22:19)
[2024-03-25] MEDS: AMBIEN 10 MG PO (22:19)
[2024-03-25] MEDS: MELATONIN 5 MG PO (22:19)
[2024-03-25] MEDS: REMERON 45 MG PO (22:19)
[2024-03-25 23:28] VITALS: BP 175/115
[2024-03-26] VITALS (7 sets, daily range): BP systolic 141–168; BP diastolic 91–104; PULSE 115; O2SAT 95
[2024-03-26] MEDS: DILAUDID 0.5 MG IV (03:09)
[2024-03-26] MEDS: TYLENOL 650 MG PO (04:59)
--- NOTE | 2024-03-26 05:06 | W.PN.UPDATE ---
Update Note
Progress Note Update
RN notified ORE MINER, BP elevated 160's/98 HR 131 sustaining 130's, mild fever of 99.8. Patient without any complaints (Dementia). Labs ordered early with mag, EKG, Metoprolol 2.5mg IVx1.
hx of Afib. on ASA
Continue Tele Monitor.
[2024-03-26] MEDS: LOPRESSOR 2.5 MG IV (05:14)
--- NOTE | 2024-03-26 05:17 | PTCARENOTE ---
Patient very anxious and restless at start of shift, multiple attempts made to get OOB, not following direction. Bed alarm placed for safety. Patient persistently hypertensive and tachycardic despite giving scheduled medications, d/c IVF, and
medicating with PRN pain medications - see MAR. Patient bladder scanned for 256. Patient M/S level of care, vitals rechecked and axillary temp 99.7, BP 161/100, and HR 131 s/p PRN Dilaudid, see MAR and worklist. AUTOMOTIVE HARDWARE ENGINEER made aware, order placed for
telemetry, EKG, and 2.5mg IV lopressor. PRN Tylenol given and AM labs drawn and sent. Patient resting comfortably in bed, denies complaints at this time.
[2024-03-26 05:49] LABS: Blood Urea Nitrogen 8 mg/dl (7-17); Carbon Dioxide 24 mmol/L (22-30); Chloride 105 mmol/L (98-107); Estimated Creatinine Clearance 70 ml/min; Glucose 128 mg/dl (70-99); Sodium 137 mmol/L (135-145); eGFR > 60.00
[2024-03-26 05:59] LABS: Calcium 8.1 mg/dl (8.4-10.2); Magnesium 1.8 mg/dl (1.6-2.3); Potassium 3.5 mmol/L (3.5-5.1)
[2024-03-26 06:14] LABS: % Basophils 0.5 % (0-2); % Immature Granulocytes 0.5 % (0-0.5); % Lymphocytes 18.9 % (20.5-51.1); % Monocytes 12.6 % (1.7-9.3); % Neutrophils 65.5 % (42.2-75.2); Absolute Eosinophils 0.2 10^3/uL (0-0.7); Absolute Lymphocytes 1.6 10^3/uL (1.2-3.4); Absolute Monocytes 1.1 10^3/uL (0.1-0.6); Absolute Neutrophils 5.7 10^3/uL (1.4-6.5); Hematocrit 42.6 % (37.0-47.0); Hemoglobin 14.2 g/dL (12.0-16.0); Mean Corp Hgb Conc. 33.3 g/dL (33.0-37.0); Mean Corpuscular Hgb 31.2 pg (27.0-31.0); Mean Corpuscular Volume 93.6 fL (81.0-99.0); Mean Platelet Volume 9.7 fL (7.4-10.4); Nucleated Red Blood Cells % 0 %; Platelet Count 202 10^3/uL (130-400); Red Blood Cell Count 4.55 10^6/uL (4.20-5.40); Red Cell Dist. Width 12.7 % (11.5-14.5); White Blood Cell Count 8.6 10^3/uL (4.8-10.8)
[2024-03-26] MEDS: COZAAR 25 MG PO (08:31)
[2024-03-26] MEDS: MACROBID 100 MG PO (08:31)
[2024-03-26] MEDS: PROTONIX 20 MG PO (08:31)
[2024-03-26] MEDS: MIRALAX 17 GRAMS PO (08:31)
[2024-03-26] MEDS: DITROPAN 5 MG PO ×2 (08:31→22:01)
[2024-03-26] MEDS: HEPARIN 5000 UNITS SC ×2 (08:31→22:00)
[2024-03-26] MEDS: NAMENDA 10 MG PO ×2 (08:31→22:01)
[2024-03-26] MEDS: ZYRTEC 10 MG PO (08:31)
[2024-03-26] MEDS: D5/0.9% SODIUM CHLORIDE IV (09:20)
--- NOTE | 2024-03-26 09:40 | W.PN.HOSP.TC ---
Today's Communication/Plan
-
evaluation of tachycardia, etiology unclear
Assessment / Plan
Assessment / Plan
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
abdominal pain intermittently since then. She came in with worsening abdominal pain with radiation to the right side. Prior to admission she had bowel movements and denied any nausea or vomiting. She has no fevers or chills. No other alarm
signs. CT scan shows a loop of bowel contained in the abdominal wall hernia that is 4.5 cm left-sided. No ischemia, strangulation or obstruction. Pt underwent surgical intervention by Dr. Sanchez 03/23, POD#3
Pt much less confused today, fully alert and conversant, probably ~baseline
D-i-L also concerned that pt had become cross eyed 18 mos ago, resolved almost entirely, partial recurrence ~2 wks prior to coming and had an appt with [place] [facility] in 2 weeks for evaluation (developed prior to hospitalization)
episode recurred 03/24, was more intense. Following day was less pronounced, but not resolved (?CN 6 palsy), today appears fully resolved
MRI chronic changes, no acute injury pattern
Dementia with exacerbation post anesthesia, better today
Mild SDAT
Hx of hyponatremia (10/18/23: Na 123) 135
03/25 138
Hgb 13.0 (lab 03/24 AM Hgb 8.2, most likely lab error and thus insignificant)
No evidence of CAROLYN, Creat exactly where it has been at 0.6, Creat of 1.7 most likely lab error
03/26 noted sudden onset of sinus tachycardia. No fever, Hgb 14.2
P: advance diet as per surg
as per d-i-l was living in assisted living, [facility], will probably require short term SNF at time of dc. Will consult CM
Await MRI and further input from neuro
reviewed situation with nursing
DVT ppx - lovenox sq for now
call placed and reviewed with barbi 03/26, 20 minutes
Pt on chronic Tramadol prior to admission
Code Status - Full Code
total time 60 minutes
consider Cardio eval pending initial evaluation
Anticipated Discharge: 24 - 48 hours
Subjective/Interval History
-
Date of Service: March 26, 2024
Appears comfortable, had large BM last evening
Objective Data
-
Labs:
Laboratory Results
03/26/24
05:02
WBC 8.6
Hgb 14.2
Hct 42.6
Plt Count 202 D
Sodium 137
Potassium 3.5
Chloride 105
Carbon Dioxide 24
BUN 8
Creatinine 0.5 L
Glucose 128 H
Calcium 8.1 L
Vital Signs:
Vital Signs
Temp Pulse Resp BP Pulse Ox
97.4 F 117 19 152/104 95
03/26/24 07:42 03/26/24 07:42 03/26/24 07:42 03/26/24 07:42 03/26/24 07:42
I&O
03/25/24 03/26/24 03/27/24
06:59 06:59 06:59
Intake Total 1680 / 1680 1320 / 1320
Balance 1680 / 1680 1320 / 1320
Review of Systems
-
History Source: Patient, Family (reviewed with Paola landon) and Coordinated Provider (LEONILA Horn)
Constitutional: Denies Fever
EENT: Reports No Symptoms Reported
Respiratory: Reports No Symptoms
Cardiac: Reports No Symptoms
Abdomen/GI: Reports Abdominal Pain and Nausea; Denies Vomiting
Genitourinary: Reports No Symptoms
Physical Exam
-
General: Well Developed, Well Nourished and No Apparent Distress
HEENT: Normocephalic, Atraumatic and Moist Mucous Membranes
Respiratory: Clear to Auscultation; Negative Wheezes, Rales or Rhonchi
Cardiac: Regular Rhythm, S1/S2 and Tachycardic (sinus tachycardia on monitor)
GI: Soft, Nondistended and Tender
Musculoskeletal: No Clubbing, No Cyanosis and No Edema
Neuro: Awake, Alert and Oriented
--- NOTE | 2024-03-26 09:48 | W.PN.GS2 ---
Today's Communication / Plan
-
`
Assessment / Plan
-
Assessment: 83-year-old female POD #3 robotic incisional hernia repair with mesh (IPUM+)
AF - tachycardia
+ return of GI function with BMs
Remains confused, this may be slightly exacerbated from her baseline Alzheimer's by a her acute illness and recent anesthesia.
MRI brain 03/26/24 negative for acute process
Plan: continue regular diet and bowel regiment
okay for d/c from post op surgical perspective with subsequent follow up with Dr. Sacnhez in 2-3 weeks
Subjective Data
-
Date of Service: March 26, 2024
pt seen and examined
sleeping/resting but awoke easily
oriented to self, pleasant
reports some abd pain but controlled
just ate breakfast
denies nausea
+ BMs documented
Objective Data
-
Intake and Output
03/25/24 03/26/24 03/27/24
06:59 06:59 06:59
Intake Total 1680 / 1680 1320 / 1320
Balance 1680 / 1680 1320 / 1320
Intake:
Oral fluids 480 / 480 720 / 720
IV fluids (Total) 1200 / 1200 600 / 600
Other:
How many times incontinent 3 1
MODERATE amount urine
How many times incontinent 1 2 1
SATURATED amount urine
Number of unmeasured liquid
stools
Rectum 1
Vital Signs
Temp Pulse Resp BP Pulse Ox
97.4 F 117 19 152/104 95
03/26/24 07:42 03/26/24 07:42 03/26/24 07:42 03/26/24 07:42 03/26/24 07:42
Lab Results
03/26/24 05:02
03/26/24 05:02
Calcium 8.1 mg/dl (8.4-10.2) L 03/26/24 05:02
Magnesium 1.8 mg/dl (1.6-2.3) 03/26/24 05:02
Total Bilirubin 0.7 mg/dl (0.2-1.3) 03/22/24 18:37
AST 68 U/L (14-36) H 03/22/24 18:37
ALT 49 U/L (0-35) H 03/22/24 18:37
Alkaline Phosphatase 50 U/L (38-126) 03/22/24 18:37
Total Protein 7.3 g/dl (6.3-8.2) 03/22/24 18:37
Albumin 4.6 g/dl (3.5-5.0) 03/22/24 18:37
Physical Exam
-
NAD
ABD: softly distended, mild TTP generalized
incision sites with glue dressings, some faint localized erythema
--- NOTE | 2024-03-26 10:17 | PN.CDI ---
CDI
- -
CDI:
Physician Documentation Request
Admit Date: 03/22/24 22:27
Dear Doctor Eugenio,
03/24 progress notes state 'Dementia with exacerbation '
03/26 nursing notes ' Patient very anxious and restless at start of shift, multiple attempts made to get OOB, not following direction'
If possible, please further clarify the patient's dementia/any associated manifestations:
Associated Manifestations
Dementia without behavioral disturbance
Dementia with behavioral disturbances
- Aggressive behavior
- Combative behavior
- Violent behavior
Dementia with delirium
- Confusion
- Sundowning
Dementia with wandering
Other, please specify
No associated manifestations
Use of terms such as suspected, likely, concern for, or probable (associated with a specific diagnosis that is being evaluated, monitored, or treated as if it exists) are acceptable and can be coded in the inpatient setting, when documented at the
time of discharge.
Thank you,
Celina Gunn RN, BSN
CDI Specialist
tiger text
Please use your independent medical judgment in providing your response.
[2024-03-26 12:44] LABS: Urine Albumin Trace (Neg - Trace); Urine Bilirubin Negative (Negative); Urine Character Clear (Clear); Urine Color Yellow; Urine Glucose Negative (Negative); Urine Ketone Negative (Negative); Urine Leukocyte 1+ (Negative); Urine Nitrite Negative (Negative); Urine Occult Blood 1+ (Negative); Urine Specific Gravity 1.005 (<1.030); Urine Urobilinogen 1+ (Neg - 1+)
[2024-03-26 13:22] LABS: Free T4 1.34 ng/dl (0.78-2.19)
[2024-03-26 14:13] LABS: Urine Squamous Cell 21-25 /LPF (Few)
[2024-03-26 14:14] LABS: Urine White Cell 21-25 /HPF (0-5)
[2024-03-26 14:16] LABS: Urine Amorphous Seen
[2024-03-26 14:18] LABS: Urine Yeast Few (Negative)
--- NOTE | 2024-03-26 16:44 | CM ---
Received message from Pat Gonzalez. She confirmed bed availability for patient tomorrow/Saturday.
Plan: Case management will continue to follow and assist with discharge planning. Carlos when stable.
[2024-03-26] MEDS: SENOKOT 8.6 MG PO (17:20)
[2024-03-26] MEDS: ULTRAM 50 MG PO (17:20)
--- NOTE | 2024-03-26 17:34 | PTCARENOTE ---
Pt continues to be tachycardic 110-130. Afebrile. Additional tests done to look for source of tachycardia - urinalysis, chest xray, blood thyroid studies. All tests WNL. Pt confused but lucid at times and able to make needs known - this is
baseline. Redness around LLQ abd surgical site - normal appearing per surgeon.
--- NOTE | 2024-03-26 20:31 | W.PN.NEURO.1 ---
Today's Communication / Plan
-
.
Subjective/Objective
Subjective Data
Date of Service: March 26, 2024
Neurology follow-up note
Ms. Camp reports no complaints. She denies having diplopia, headache motor or sensory deficits.
ESR�16, CRP�26.3, supratherapeutic vitamin B12, LDL�65, normal TSH.
PMH: PA A-Fib, DLP, MCI, left eye 'stroke ([facility]), chronic pain syndrome, OA, Vitamin B 12 deficiency, BPPV, IBS, hypothyroidism, hepatic steatosis, recurrent UTIs, insomnia, JOVITA, MDD
PSH: Robotic Ventral incisional hernia repair with Intraperitoneal Underlay Mesh(03/23/2024), Cholecystectomy
SH: group home resident, retired homemaker, ambulates with a walker, non-smoker
FH: Not contributory to current presentation
All: Gabapentin, procainamide, oxycodone, Vytorin, codeine, ciprofloxacin, belladonna, acetaminophen, influenza virus vaccine, simvastatin, sertraline Darvocet
ROS: Limited due to poor attention.
General: Well developed. In no acute distress.
Cardio: Regular rate and rhythm. Extremities are without cyanosis or edema.
Neuro:
Mental Status: Awake oriented to name, month, year. Impaired attention. Nonfluent. Follows simple requests. Increased processing time
Cranial Nerves: pupils are 2.5 min reactive. Right abduction paralysis. L ptosis. BTT BL. Face symmetric. Preserved hearing. No dysarthria.
Motor: No pronator or arm drift.
Reflexes: Bilateral grasp
Sensory: Limited exam due to poor attention
Coordination: No tremors, myoclonic movements.
Gait: deferred
Assessment and Plan:
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
II. Encephalopathy (vascular, neurodegenerative)
III. History of A-fib.
IV. Elevated CRP
-Telemetry monitoring
-Continue aspirin 81 mg
-Follow up MG panel
-Please obtain medical records from [place] [facility] for review
-Outpatient neurology follow-up
I personally reviewed all radiology and labs along with past medical records pertinent to current medical problems. Total time spent in patient care is 36 minutes.
Thank you for allowing us to participate in the care of this patient. Please do not hesitate to contact us with any questions or concerns.
Objective Data
Vital Signs
Temp Pulse Resp BP Pulse Ox
36.8 C 132 18 162/102 95
03/26/24 19:03 03/26/24 19:03 03/26/24 19:03 03/26/24 19:03 03/26/24 19:03
Lab Results
03/26/24 05:02
03/26/24 05:02
Sodium 137 mmol/L (135-145) 03/26/24 05:02
Potassium 3.5 mmol/L (3.5-5.1) 03/26/24 05:02
BUN 8 mg/dl (7-17) 03/26/24 05:02
Glucose 128 mg/dl (70-99) H 03/26/24 05:02
Calcium 8.1 mg/dl (8.4-10.2) L 03/26/24 05:02
LDL Cholesterol, Calc 65 mg/dl 03/24/24 16:32
Vitamin B12 932 pg/ml (239-931) H 03/24/24 16:32
Patient Allergies
acetaminophen [From Percocet] Allergy (Verified 03/22/24 18:07)
Hives
belladonna alkaloids Allergy (Verified 03/22/24 18:07)
Unknown
ciprofloxacin [From Cipro] Allergy (Verified 03/22/24 18:07)
Unknown
codeine Allergy (Verified 03/22/24 18:07)
Unknown
ezetimibe [From Vytorin] Allergy (Verified 03/22/24 18:07)
Unknown
gabapentin Allergy (Verified 03/22/24 18:07)
Unknown
oxycodone [From Percocet] Allergy (Verified 03/22/24 18:07)
Hives
plecanatide [From Trulance] Allergy (Verified 03/22/24 18:07)
Unknown
propoxyphene [From Darvocet-N] Allergy (Verified 03/22/24 18:07)
Hives
sertraline Allergy (Verified 03/22/24 18:07)
Unknown
simvastatin [From Vytorin] Allergy (Verified 03/22/24 18:07)
Unknown
Influenza Virus Vaccines Adverse Reaction (Verified 03/22/24 18:07)
Unknown
Vital Signs and Labs
-
Vital Signs and Labs:
Vital Signs
Temp Pulse Resp BP Pulse Ox
36.8 C 132 18 162/102 95
03/26/24 19:03 03/26/24 19:03 03/26/24 19:03 03/26/24 19:03 03/26/24 19:03
Lab Results
03/26/24 05:02
03/26/24 05:02
Sodium 137 mmol/L (135-145) 03/26/24 05:02
Potassium 3.5 mmol/L (3.5-5.1) 03/26/24 05:02
BUN 8 mg/dl (7-17) 03/26/24 05:02
Glucose 128 mg/dl (70-99) H 03/26/24 05:02
Calcium 8.1 mg/dl (8.4-10.2) L 03/26/24 05:02
LDL Cholesterol, Calc 65 mg/dl 03/24/24 16:32
Vitamin B12 932 pg/ml (239-931) H 03/24/24 16:32
Medications
-
Medications:
Generic Name Dose Route Start Last Admin
Trade Name Freq PRN Reason Stop Dose Admin
Acetaminophen 650 mg 03/22/24 23:13 03/26/24 04:59
Acetaminophen 325 Mg Tablet PO 04/19/24 23:12 650 mg
Q4HPRN PRN Administration
mild pain/GUTIÉRREZ/temp> 100.4F
Alprazolam 0.5 mg 03/23/24 22:00 03/25/24 22:19
Alprazolam 0.5 Mg Tablet PO 04/20/24 21:59 0.5 mg
HS NOBLE Administration
Alprazolam 0.25 mg 03/24/24 15:58 03/25/24 12:59
Alprazolam 0.25 Mg Tablet PO 04/21/24 15:57 0.25 mg
ONCE PRN Administration
20 MINS BEFORE MRI
Aspirin 81 mg 03/24/24 15:00 03/24/24 16:26
Aspirin 81 Mg (Enteric Coated) Tablet PO 04/21/24 14:59 81 mg
DAILY NOBLE Administration
Bisacodyl 10 mg 03/22/24 23:13
Bisacodyl 10 Mg Rectal Suppository RECTAL 04/19/24 23:12
[id number] PRN
constipation
Cetirizine HCl 10 mg 03/23/24 08:00 03/26/24 08:31
Cetirizine Hcl 10 Mg Tablet PO 04/20/24 07:59 10 mg
DAILY NOBLE Administration
Donepezil HCl 5 mg 03/23/24 22:00 03/25/24 22:19
Donepezil 5 Mg Tablet PO 04/20/24 21:59 5 mg
HS NOBLE Administration
Heparin Sodium 5,000 units 03/24/24 20:00 03/26/24 08:31
Heparin 5,000 Units/Ml 1 Ml Vial SC 04/21/24 19:59 5,000 units
Q12 NOBLE Administration
Hydromorphone HCl 0.5 mg 03/22/24 23:13 03/26/24 03:09
Hydromorphone 0.5 Mg/0.5 Ml Syringe IV 04/05/24 23:12 0.5 mg
Q4HPRN PRN Administration
severe pain
Losartan Potassium 25 mg 03/23/24 08:00 03/26/24 08:31
Losartan 25 Mg Tablet PO 04/20/24 07:59 25 mg
DAILY NOBLE Administration
Meclizine HCl 12.5 mg 03/22/24 23:13
Meclizine 12.5 Mg Tablet PO 04/19/24 23:12
TIDPRN PRN
DIZZINESS
Melatonin 5 mg 03/23/24 22:00 03/25/24 22:19
Melatonin 5 Mg Tablet PO 04/20/24 21:59 5 mg
HS NOBLE Administration
Memantine 10 mg 03/23/24 08:00 03/26/24 08:31
Memantine 10 Mg Tablet PO 04/20/24 07:59 10 mg
BID NOBLE Administration
Mirtazapine 45 mg 03/23/24 22:00 03/25/24 22:19
Mirtazapine 15 Mg Regular Release Tablet PO 04/20/24 21:59 45 mg
HS NOBLE Administration
Nitrofurantoin Macrocrystals 100 mg 03/23/24 08:00 03/26/24 08:31
Nitrofurantoin Monohydrate 100 Mg Capsule PO 04/21/24 08:01 100 mg
DAILY NOBLE Administration
Ondansetron HCl 4 mg 03/22/24 23:13
Ondansetron 4 Mg/2 Ml Vial IV 04/19/24 23:12
Q6HPRN PRN
nausea and vomiting
Oxybutynin Chloride 5 mg 03/23/24 08:00 03/26/24 08:31
Oxybutynin 5 Mg Tablet PO 04/20/24 07:59 5 mg
BID NOBLE Administration
Pantoprazole Sodium 20 mg 03/23/24 08:00 03/26/24 08:31
Pantoprazole 20 Mg Delayed Release Tablet PO 04/20/24 07:59 20 mg
DAILY NOBLE Administration
Polyethylene Glycol 17 grams 03/23/24 08:00 03/26/24 08:31
Polyethylene Glycol Powder 17 Grams Packet PO 04/20/24 07:59 17 grams
DAILY NOBLE Administration
Rosuvastatin Calcium 5 mg 03/23/24 22:00 03/25/24 22:19
Rosuvastatin (Crestor) 5 Mg Tablet PO 04/20/24 21:59 5 mg
HS NOBLE Administration
Sennosides 8.6 mg 03/23/24 18:00 03/26/24 17:20
Sennosides (Senokot) 8.6 Mg Tablet PO 04/20/24 17:59 8.6 mg
QPM NOBLE Administration
Sodium Chloride 0 flush 03/22/24 23:00
Sodium Chloride 0.9% (Flush) Syringe IV 04/19/24 22:59
PER PROTOCOL NOBLE
Tramadol HCl 50 mg 03/22/24 23:13 03/26/24 17:20
Tramadol Hcl 50 Mg Tablet PO 04/19/24 23:12 50 mg
Q6HPRN PRN Administration
moderate pain
Zolpidem Tartrate 10 mg 03/23/24 22:00 03/25/24 22:19
Zolpidem Tartrate 5 Mg Tablet PO 04/20/24 21:59 10 mg
HS NOBLE Administration
Home Medications
-
Home Medications
alprazolam 0.5 mg tablet 0.5 mg PO HS Sleep 10/12/21
aluminum-magnesium hydroxide 200 mg-200 mg/5 mL oral suspension 20 ml PO Q8HPRN PRN indigestion 10/12/21
benzonatate 100 mg capsule 100 mg PO Q8HPRN PRN cough 10/12/21
carboxymethyl 0.5 %-glycerin 1 %-polysorb 80 0.5 %-PF eye dropperette (Refresh Optive Santy-3 (PF)) 2 drp BOTH EYES BID Eye condition 10/12/21
cetirizine 10 mg tablet 10 mg PO DAILY Allergies 10/12/21
estradiol 10 mcg vaginal insert 10 mcg vaginal WESA Hormonal agent 10/12/21
eszopiclone 3 mg tablet 3 mg PO HS Sleep 10/12/21
losartan 25 mg tablet 25 mg PO DAILY Blood Pressure 10/12/21
nitrofurantoin macrocrystal 100 mg capsule 100 mg PO DAILY Urinary Issue 10/12/21
rosuvastatin 5 mg tablet 5 mg PO HS High Cholesterol 10/12/21
sennosides 8.6 mg tablet (Senokot) 8.6 mg PO QPM Constipation 10/12/21
acetaminophen 500 mg tablet 1,000 mg PO TID MILD PAIN 08/29/22
donepezil 5 mg tablet 5 mg PO HS dementia 08/29/22
fluoride (sodium) 1.1 % dental paste (PreviDent 5000 Dry Mouth) 1 applic dental BID dental care 08/29/22
pantoprazole 20 mg tablet,delayed release 20 mg PO DAILY Gastrointestinal Issue 08/29/22
polyethylene glycol 3350 17 gram oral powder packet 8.5 grams PO [id number] PRN CONSTIPATION 08/29/22
tramadol 50 mg tablet 50 mg PO [id number] PRN severe pain 08/29/22
ascorbic acid (vitamin C) 500 mg tablet 500 mg PO DAILY Supplement 10/18/23
bisacodyl 10 mg rectal suppository (Dulcolax (bisacodyl)) 10 mg LA DAILYPRN PRN constipation 10/18/23
docusate sodium 100 mg capsule 100 mg PO BIDPRN PRN constipation 10/18/23
memantine 10 mg tablet 10 mg PO BID Neurological Condition 10/18/23
mirtazapine 45 mg tablet 45 mg PO HS Depression 10/18/23
multivitamin with minerals-folic acid 120 mcg chewable tablet (Women's Multivitamin Gummies) 2 tab PO DAILY Supplement 10/18/23
oxybutynin chloride 5 mg tablet 5 mg PO BID Urinary Issue 10/18/23
bismuth subsalicylate 525 mg/15 mL oral suspension 525 mg PO Q6HPRN PRN DIARRHEA 03/22/24
carbamide peroxide 6.5 % ear drops (Debrox) 5 drp EACH EAR MORALES ear wax removal 03/22/24
meclizine 12.5 mg tablet 12.5 mg PO TIDPRN PRN DIZZINESS 03/22/24
melatonin 5 mg tablet 5 mg PO HS Sleep 03/22/24
polyethylene glycol 3350 17 gram oral powder packet (Miralax) 17 g PO DAILY Constipation 03/22/24
sodium phosphates 19 gram-7 gram/118 mL enema (Fleet Enema) 118 ml LA DAILYPRN PRN CONSTIPATION 03/22/24
[2024-03-26] MEDS: MELATONIN 5 MG PO (22:01)
[2024-03-26] MEDS: CRESTOR 5 MG PO (22:01)
[2024-03-26] MEDS: AMBIEN 10 MG PO (22:01)
[2024-03-26] MEDS: XANAX 0.5 MG PO (22:01)
[2024-03-26] MEDS: ARICEPT 5 MG PO (22:01)
[2024-03-26] MEDS: REMERON 45 MG PO (22:01)
[2024-03-27 03:38] VITALS: BP 164/96
[2024-03-27 07:30] VITALS: BP 140/80
[2024-03-27 08:25] LABS: % Basophils 0.5 % (0-2); % Eosinophils 3.3 % (0-6); % Immature Granulocytes 0.6 % (0-0.5); % Lymphocytes 23.1 % (20.5-51.1); % Monocytes 12.1 % (1.7-9.3); % Neutrophils 60.4 % (42.2-75.2); Absolute Eosinophils 0.3 10^3/uL (0-0.7); Absolute Immature Granulocytes 0.1 10^3/uL (0-0.05); Absolute Neutrophils 5.2 10^3/uL (1.4-6.5); Hemoglobin 13.6 g/dL (12.0-16.0); Mean Corpuscular Hgb 31.3 pg (27.0-31.0); Mean Corpuscular Volume 92.2 fL (81.0-99.0); Mean Platelet Volume 9.7 fL (7.4-10.4); Nucleated Red Blood Cells % 0 %; Platelet Count 218 10^3/uL (130-400); Red Blood Cell Count 4.34 10^6/uL (4.20-5.40); Red Cell Dist. Width 12.7 % (11.5-14.5); White Blood Cell Count 8.6 10^3/uL (4.8-10.8)
--- NOTE | 2024-03-27 08:40 | CON.CAR ---
Addendum entered and electronically signed by Eduardo Rojas MD 03/27/24 09:38:
83-year-old woman with history of colostomy and subsequent colostomy takedown who underwent a left-sided ventral hernia repair on March 232024. Postop there was concern for stroke but MRI and neurologic evaluation was unremarkable.
Postoperatively she was hypertensive with sinus tachycardia and consultation requested. She had a CT scan with pulmonary embolism protocol that was negative. Confused and restless yesterday, improved today, currently heart rate is better today.
Preop heart rate was normal and rhythm was sinus.
PMH/PSH/SH/FH: Reviewed, see below
Allergies/Home Meds: Reviewed, see below
ROS: Largely negative though patient is currently oriented to date and place
149/78, pulse 98, resp rate 18, afebrile, pleasant, eating breakfast, no distress, head neck exam unremarkable, lungs clear, regular rate and rhythm, abdomen intact with small incision left abdomen, extremities without clubbing cyanosis or edema
ECG today sinus tachycardia, LVH heart rate was 88 in sinus rhythm
Hemoglobin 13.6 potassium 3.4, on March 25
Free T4
Impression:
Reactive sinus tachycardia, related to postoperative state
She has never had a problem with her heart rate before and 2 days postop developed tachycardia, at which time the inflammation from her surgery would be at the peak. Her heart rate is coming down now. She was agitated and confused yesterday which
would also contribute and seems better now.
Since she is doing better at this time, would hold off on any further evaluation. When she returns to her assisted living situation if tachycardia remains an issue we could consider a monitor, etc. but would defer to her primary care physician.
Will sign off.
UA: White cells
Original Note:
Consultation
Consultation Request
Date/Time Consultation Performed: 03/27/24
Requesting Provider: Dr. Becker
Performing Provider: Dee Ham PA-C for Dr. CECILIO Rojas
Reason for Consultation: sinus tachycardia
Medical History
-
Chief Complaint: abd pain
History of Present Illness:
Patient is an 83-year-old female with past medical history significant for dementia, diverticulitis with bowel resection and colostomy and subsequent reversal who then developed a left-sided ventral hernia status post repair approximately 2 years
ago. Reportedly since then she has had abdominal pain. She presented to [facility] emergency room for evaluation of this several days ago and had CT scan which showed abdominal wall hernia and underwent repair on 03/23/2024. 03/24 she was a
CVA alert due to change in extraocular movements however work up including brain MRI negative for CVA. Cardiology consulted as noted in postoperative period to be hypertensive and tachycardic on 03/25/24. Workup for infectious process has been
relatively unremarkable. White count has been within normal limits. She underwent CT of the chest yesterday negative for PE or evidence of cardiopulmonary abnormalities. Reportedly was confused and restless yesterday, which appears improved
today. It appears as though she does have history of unknown intolerance to several pain medications. As outpatient is not on AV fatou blocking agents, however does take losartan 25 mg daily.
PMH:
Hypertension
Dementia
History of diverticulitis s/p bowel resection with prior colostomy and subsequent reversal
Left-sided ventral hernia status postrepair approximately 2 years ago
History of bladder mass
Hyperlipidemia
GERD
Depression/anxiety
History of UTIs
Past Medical History
Past Medical History: Other (in HPI)
Social History
Tobacco: Non-Smoker
Alcohol: None
Living: Assisted Living
Family History
Family History: Unable to Obtain
Allergies / Home Medications
Allergy/AdvReac Type Severity Reaction Status Date / Time
acetaminophen [From Percocet] Allergy Hives Verified 03/22/24 18:07
belladonna alkaloids Allergy Unknown Verified 03/22/24 18:07
ciprofloxacin [From Cipro] Allergy Unknown Verified 03/22/24 18:07
codeine Allergy Unknown Verified 03/22/24 18:07
ezetimibe [From Vytorin] Allergy Unknown Verified 03/22/24 18:07
gabapentin Allergy Unknown Verified 03/22/24 18:07
oxycodone [From Percocet] Allergy Hives Verified 03/22/24 18:07
plecanatide [From Trulance] Allergy Unknown Verified 03/22/24 18:07
propoxyphene Allergy Hives Verified 03/22/24 18:07
[From Darvocet-N]
sertraline Allergy Unknown Verified 03/22/24 18:07
simvastatin [From Vytorin] Allergy Unknown Verified 03/22/24 18:07
Influenza Virus Vaccines AdvReac Unknown Verified 03/22/24 18:07
�Medication �Instructions �Recorded �Confirmed �Type
alprazolam 0.5 mg tablet 0.5 mg PO HS Sleep 10/12/21 03/22/24 History
aluminum-magnesium hydroxide 200 20 ml PO Q8HPRN PRN indigestion 10/12/21 03/22/24 History
mg-200 mg/5 mL oral suspension
benzonatate 100 mg capsule 100 mg PO Q8HPRN PRN cough 10/12/21 03/22/24 History
carboxymethyl 0.5 %-glycerin 1 2 drp BOTH EYES BID Eye condition 10/12/21 03/22/24 History
%-polysorb 80 0.5 %-PF eye
dropperette (Refresh Optive Santy-3
(PF))
cetirizine 10 mg tablet 10 mg PO DAILY Allergies 10/12/21 03/22/24 History
estradiol 10 mcg vaginal insert 10 mcg vaginal WESA Hormonal agent 10/12/21 03/22/24 History
eszopiclone 3 mg tablet 3 mg PO HS Sleep 10/12/21 03/22/24 History
losartan 25 mg tablet 25 mg PO DAILY Blood Pressure 10/12/21 03/22/24 History
nitrofurantoin macrocrystal 100 mg 100 mg PO DAILY Urinary Issue 10/12/21 03/22/24 History
capsule
rosuvastatin 5 mg tablet 5 mg PO HS High Cholesterol 10/12/21 03/22/24 History
sennosides 8.6 mg tablet (Senokot) 8.6 mg PO QPM Constipation 10/12/21 03/22/24 History
acetaminophen 500 mg tablet 1,000 mg PO TID MILD PAIN 08/29/22 03/22/24 History
donepezil 5 mg tablet 5 mg PO HS dementia 08/29/22 03/22/24 History
fluoride (sodium) 1.1 % dental 1 applic dental BID dental care 08/29/22 03/22/24 History
paste (PreviDent 5000 Dry Mouth)
pantoprazole 20 mg tablet,delayed 20 mg PO DAILY Gastrointestinal 08/29/22 03/22/24 History
release Issue
polyethylene glycol 3350 17 gram 8.5 grams PO [id number] PRN 08/29/22 03/22/24 History
oral powder packet CONSTIPATION
tramadol 50 mg tablet 50 mg PO Q28ONFS PRN severe pain 08/29/22 03/22/24 History
ascorbic acid (vitamin C) 500 mg 500 mg PO DAILY Supplement 10/18/23 03/22/24 History
tablet
bisacodyl 10 mg rectal suppository 10 mg [place] DAILYPRN PRN constipation 10/18/23 03/22/24 History
(Dulcolax (bisacodyl))
docusate sodium 100 mg capsule 100 mg PO BIDPRN PRN constipation 10/18/23 03/22/24 History
memantine 10 mg tablet 10 mg PO BID Neurological Condition 10/18/23 03/22/24 History
mirtazapine 45 mg tablet 45 mg PO HS Depression 10/18/23 03/22/24 History
multivitamin with minerals-folic 2 tab PO DAILY Supplement 10/18/23 03/22/24 History
acid 120 mcg chewable tablet
(Women's Multivitamin Gummies)
oxybutynin chloride 5 mg tablet 5 mg PO BID Urinary Issue 10/18/23 03/22/24 History
bismuth subsalicylate 525 mg/15 mL 525 mg PO Q6HPRN PRN DIARRHEA 03/22/24 03/22/24 History
oral suspension
carbamide peroxide 6.5 % ear drops 5 drp EACH EAR MORALES ear wax removal 03/22/24 03/22/24 History
(Debrox)
meclizine 12.5 mg tablet 12.5 mg PO TIDPRN PRN DIZZINESS 03/22/24 03/22/24 History
melatonin 5 mg tablet 5 mg PO HS Sleep 03/22/24 03/22/24 History
polyethylene glycol 3350 17 gram 17 g PO DAILY Constipation 03/22/24 03/22/24 History
oral powder packet (Miralax)
sodium phosphates 19 gram-7 118 ml [place] DAILYPRN PRN CONSTIPATION 03/22/24 03/22/24 History
gram/118 mL enema (Fleet Enema)
Review of Systems
-
Unable to obtain full review of systems at this time due to: Dementia
All other systems: Negative unless noted
Physical Exam
Vital Signs
Temp Pulse Resp BP Pulse Ox
98.0 F 98 18 140/80 95
03/27/24 07:30 03/27/24 07:30 03/27/24 07:30 03/27/24 07:30 03/27/24 07:30
Lab Results
03/27/24 07:39
Physical Exam
General: No Apparent Distress, Comfortable and Other (lethargic)
HEENT: Normocephalic, Anicteric and Moist Mucous Membranes
Respiratory: Clear and Non Labored Respirations
Cardiac: S1/S2 and Regular Rhythm
GI: Normal Bowel Sounds
Musculoskeletal: No Clubbing, No Cyanosis and No Edema
Skin: Warm and Dry
Neuro: AO x 3
Impression / Plan
-
Primary Mercantile Agent: none
Assessment:
Presentation with abd pain
Abdominal wall hernia and underwent repair on 03/23/2024
Sinus tachycardia
Hypertension
Dementia
History of diverticulitis s/p bowel resection with prior colostomy and subsequent reversal
Left-sided ventral hernia status postrepair approximately 2 years ago
History of bladder mass
Hyperlipidemia
GERD
Depression/anxiety
History of UTIs
Nystagmus
Plan:
-Patient presented with abdominal pain found to have abdominal wall hernia status post repair 03/23/2024. 03/26/2024 patient was noted to have some restlessness and noted to have hypertension and sinus tachycardia with heart rates into the 130s.
-No evidence of arrhythmia on review of tele.
-Overnight heart rate trends appear to be improving. Currently in the 90s and patient resting comfortably
-Patient denies significant pain
-Hemoglobin stable. No concerns from surgical standpoint noted
-without leukocytosis or fever
-UA without clear evidence of UTI
-Brain MRI without evidence of acute intracranial abnormality
-Chest CT without evidence of PE or active cardiopulmonary disease
-Overall since admission, blood pressure trends appear to be suboptimally controlled. Would consider addition of low-dose beta-maddi for both hypertension and tachycardia
-could consider check echo
-d/w nursing
Data Reviewed
-
EKG: Tracing Personally Visualized and interpreted
CT Scan: Report Reviewed by me
MRI: Report Reviewed by me
Labs: Labs Reviewed by me
Old Records: Reviewed
[2024-03-27] MEDS: COZAAR 25 MG PO (09:02)
[2024-03-27] MEDS: NAMENDA 10 MG PO ×2 (09:02→20:40)
[2024-03-27] MEDS: ZYRTEC 10 MG PO (09:02)
[2024-03-27] MEDS: PROTONIX 20 MG PO (09:03)
[2024-03-27] MEDS: MACROBID 100 MG PO (09:03)
[2024-03-27] MEDS: MIRALAX 17 GRAMS PO (09:03)
[2024-03-27] MEDS: HEPARIN 5000 UNITS SC ×2 (09:03→20:39)
[2024-03-27] MEDS: DITROPAN 5 MG PO ×2 (09:03→20:39)
[2024-03-27 09:04] LABS: Blood Urea Nitrogen 12 mg/dl (7-17); Calcium 8.4 mg/dl (8.4-10.2); Carbon Dioxide 22 mmol/L (22-30); Chloride 100 mmol/L (98-107); Estimated Creatinine Clearance 70 ml/min; Glucose 130 mg/dl (70-99); Potassium 3.4 mmol/L (3.5-5.1); Sodium 134 mmol/L (135-145); eGFR > 60.00
--- NOTE | 2024-03-27 09:14 | W.PN.HOSP.TC ---
Addendum entered and electronically signed by Bobby Becker MD 03/27/24 10:03:
Just communicated with MARISSA Mcduffie. Assuming clearance by cardio plan is to return to [facility], but to go to the SNF, potentially tomorrow
Original Note:
Today's Communication/Plan
-
cardio consult
once tachycardia aspect resolved, dc to follow
Assessment / Plan
Assessment / Plan
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
abdominal pain intermittently since then. She came in with worsening abdominal pain with radiation to the right side. Prior to admission she had bowel movements and denied any nausea or vomiting. She has no fevers or chills. CT scan shows a
loop of bowel contained in the abdominal wall hernia that is 4.5 cm left-sided. No ischemia, strangulation or obstruction. Pt underwent surgical intervention by Dr. Sanchez 03/23, POD#3
Pt much less confused today, fully alert and conversant, probably ~baseline
D-i-L also concerned that pt had become cross eyed 18 mos ago, resolved almost entirely, partial recurrence ~2 wks prior to coming and had an appt with [facility] in 2 weeks for evaluation (developed prior to hospitalization)
episode recurred 03/24, was more intense. Following day was less pronounced, but not resolved (?CN 6 palsy), currently appears fully resolved
MRI chronic changes, no acute injury pattern
Dementia with exacerbation post anesthesia, better today
Mild SDAT
Hx of hyponatremia (10/18/23: Na 123) 135
03/25 138-->03/27 134
mild hypokalemia K 3.4
will supplement
Hgb 13.0 (lab 1/7 AM Hgb 8.2, most likely lab error and thus insignificant)
No evidence of CAROLYN, Creat exactly where it has been at 0.6, Creat of 1.7 most likely lab error
03/26 noted sudden onset of sinus tachycardia. No fever, Hgb 14.2. No evidence of PE on CT-A
Cardio has been consulted, await input, though rate down from 130's to low 90's. ?sinus node reentry
Dementia with delirium
better today, probably at baseline
P: advance diet as per surg
as per barbi was living in assisted living, [facility], will probably require short term SNF at time of dc. Will consult CM - called x2, no answer
chronic MRI changes, no acute changes
reviewed situation with nursing and LEONILA Guevara
DVT ppx - lovenox sq for now
call placed and reviewed with barbi 03/27, 20 minutes
Pt on chronic Tramadol prior to admission
Code Status - Full Code
total time 50 minutes
Await Cardio eval pending initial evaluation
Anticipated Discharge: 24 - 48 hours
Subjective/Interval History
-
Date of Service: March 27, 2024
Abd doing better, tolerating diet
Objective Data
-
Labs:
Laboratory Results
03/27/24
07:39
WBC 8.6
Hgb 13.6
Hct 40.0
Plt Count 218
Sodium 134 L
Potassium 3.4 L
Chloride 100
Carbon Dioxide 22
BUN 12
Creatinine 0.6
Glucose 130 H
Calcium 8.4
Vital Signs:
Vital Signs
Temp Pulse Resp BP Pulse Ox
98.0 F 98 18 149/78 95
03/27/24 07:30 03/27/24 09:02 03/27/24 07:30 03/27/24 09:02 03/27/24 07:30
I&O
03/26/24 03/27/24 03/28/24
06:59 06:59 06:59
Intake Total 1320 / 1320 1200 / 1200
Output Total 900 / 900
Balance 1320 / 1320 300 / 300
Review of Systems
-
History Source: Patient and Family (reviewed with ramint-[email or web address])
Constitutional: Denies Fever
EENT: Reports No Symptoms Reported
Respiratory: Reports No Symptoms
Cardiac: Reports No Symptoms; Denies Chest Pain
Abdomen/GI: Reports Abdominal Pain (post op incisional pain)
Genitourinary: Reports No Symptoms
Physical Exam
-
General: Well Developed, Well Nourished and No Apparent Distress
HEENT: Normocephalic, Atraumatic and Moist Mucous Membranes
Respiratory: Clear to Auscultation; Negative Wheezes, Rales or Rhonchi
Cardiac: Regular Rhythm, S1/S2 and Tachycardic (sinus tachycardia on monitor yesterday, currently HR in low 90's)
GI: Soft, Nondistended and Tender
Musculoskeletal: No Clubbing, No Cyanosis and No Edema
Neuro: Awake, Alert and Oriented
[2024-03-27] MEDS: KCL 20 MEQ PO (09:56)
--- NOTE | 2024-03-27 09:57 | CM ---
Addendum entered by SANTOS Gavin 03/27/24 15:40:
IMM signed and on chart.
Addendum entered by SANTOS Gavin 03/27/24 15:33:
IMM needs to be signed prior to d/c.
Addendum entered by SANTOS Gavin 03/27/24 15:30:
Received request from [facility] that patient be set up for transport tomorrow. Completed medical necessity and transfer sheet. Will need to get patient to sign IMM.
Original Note:
Spoke with attending who stated that patient will most likely be ready for discharge Saturday. He was advised that she has a bed at their SNF and they will have a bed Saturday for her. Patient does not need auth prior to transfer.
Plan: Case management will continue to follow and assist with discharge planning. Transfer to [facility] upon medical clearance.
[2024-03-27 11:20] VITALS: BP 133/78
[2024-03-27] MEDS: ULTRAM 50 MG PO (14:46)
[2024-03-27 15:16] VITALS: BP 159/85
[2024-03-27] MEDS: SENOKOT 8.6 MG PO (17:51)
[2024-03-27 19:40] VITALS: BP 149/86
[2024-03-27] MEDS: ARICEPT 5 MG PO (22:47)
[2024-03-27] MEDS: AMBIEN 10 MG PO (22:47)
[2024-03-27] MEDS: CRESTOR 5 MG PO (22:48)
[2024-03-27] MEDS: REMERON 45 MG PO (22:48)
[2024-03-27] MEDS: MELATONIN 5 MG PO (22:48)
[2024-03-27] MEDS: XANAX 0.5 MG PO (22:49)
[2024-03-27] MEDS: FLUSH (NSS) 2 FLUSH IV (22:52)
[2024-03-27 23:20] VITALS: BP 122/68
[2024-03-28 03:52] VITALS: BP 107/65
[2024-03-28 06:50] LABS: % Basophils 0.6 % (0-2); % Eosinophils 4.1 % (0-6); % Lymphocytes 28.5 % (20.5-51.1); % Monocytes 12.6 % (1.7-9.3); % Neutrophils 53.2 % (42.2-75.2); Absolute Eosinophils 0.3 10^3/uL (0-0.7); Absolute Immature Granulocytes 0.1 10^3/uL (0-0.05); Absolute Lymphocytes 1.9 10^3/uL (1.2-3.4); Absolute Monocytes 0.9 10^3/uL (0.1-0.6); Absolute Neutrophils 3.6 10^3/uL (1.4-6.5); Hematocrit 38.9 % (37.0-47.0); Hemoglobin 13.2 g/dL (12.0-16.0); Mean Corp Hgb Conc. 33.9 g/dL (33.0-37.0); Mean Corpuscular Hgb 31.4 pg (27.0-31.0); Mean Corpuscular Volume 92.4 fL (81.0-99.0); Mean Platelet Volume 9.7 fL (7.4-10.4); Nucleated Red Blood Cells % 0 %; Platelet Count 219 10^3/uL (130-400); Red Blood Cell Count 4.21 10^6/uL (4.20-5.40); Red Cell Dist. Width 12.7 % (11.5-14.5); White Blood Cell Count 6.8 10^3/uL (4.8-10.8)
[2024-03-28 07:00] VITALS: BP 121/57
[2024-03-28 07:16] LABS: Blood Urea Nitrogen 12 mg/dl (7-17); Calcium 8.5 mg/dl (8.4-10.2); Carbon Dioxide 26 mmol/L (22-30); Chloride 101 mmol/L (98-107); Estimated Creatinine Clearance 70 ml/min; Glucose 123 mg/dl (70-99); Potassium 3.5 mmol/L (3.5-5.1); Sodium 136 mmol/L (135-145); eGFR > 60.00
[2024-03-28] MEDS: PROTONIX 20 MG PO (09:05)
[2024-03-28] MEDS: NAMENDA 10 MG PO (09:05)
[2024-03-28] MEDS: ZYRTEC 10 MG PO (09:05)
[2024-03-28] MEDS: MIRALAX 17 GRAMS PO (09:05)
[2024-03-28] MEDS: DITROPAN 5 MG PO (09:05)
[2024-03-28] MEDS: MACROBID 100 MG PO (09:05)
[2024-03-28] MEDS: COZAAR 25 MG PO (09:05)
--- NOTE | 2024-03-28 11:52 | W.PN.HOSP.TC ---
Today's Communication/Plan
-
dc now
Assessment / Plan
Assessment / Plan
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
abdominal pain intermittently since then. She came in with worsening abdominal pain with radiation to the right side. Prior to admission she had bowel movements and denied any nausea or vomiting. She has no fevers or chills. CT scan shows a
loop of bowel contained in the abdominal wall hernia that is 4.5 cm left-sided. No ischemia, strangulation or obstruction. Pt underwent surgical intervention by Dr. Sanchez 03/23, POD#3
Pt much less confused today, fully alert and conversant, probably ~baseline
D-i-L also concerned that pt had become cross eyed 18 mos ago, resolved almost entirely, partial recurrence ~2 wks prior to coming and had an appt with [facility] in 2 weeks for evaluation (developed prior to hospitalization)
episode recurred 03/24, was more intense. Following day was less pronounced, but not resolved (?CN 6 palsy), currently appears fully resolved
MRI chronic changes, no acute injury pattern
Dementia with exacerbation post anesthesia, better today
Mild SDAT
Hx of hyponatremia (10/18/23: Na 123) 135
03/25 138-->03/27 134
mild hypokalemia K 3.4
will supplement
Hgb 13.0 (lab 03/24 AM Hgb 8.2, most likely lab error and thus insignificant)
No evidence of CAROLYN, Creat exactly where it has been at 0.6, Creat of 1.7 most likely lab error
03/26 noted sudden onset of sinus tachycardia. No fever, Hgb 14.2. No evidence of PE on CT-A
Cardio has been consulted, await input, though rate down from 130's to low 90's. ?sinus node reentry
Dementia with delirium
better today, probably at baseline
P: advance diet as per surg
as per barbi was living in assisted living, [facility], will probably require short term SNF at time of dc. Will consult CM - called x2, no answer
chronic MRI changes, no acute changes
reviewed situation with nursing and LEONILA Guevara
DVT ppx - lovenox sq for now
call placed and reviewed with barbi 03/28, 20 minutes
Pt on chronic Tramadol prior to admission
Code Status - Full Code
dc now
More than 30 minutes spent in discharge including
Final examination of the patient
Summarizing hospital stay
Instructions for continuing care to all relevant caregivers
Preparation of discharge records, prescriptions, and referral forms
Total time spent (in minutes): 45
Anticipated Discharge: Today
Subjective/Interval History
-
Date of Service: March 28, 2024
Awake, alert, actually looks well
Objective Data
-
Labs:
Laboratory Results
03/28/24 03/28/24
06:07 06:08
WBC 6.8
Hgb 13.2
Hct 38.9
Plt Count 219
Sodium 136
Potassium 3.5
Chloride 101
Carbon Dioxide 26
BUN 12
Creatinine 0.6
Glucose 123 H
Calcium 8.5
Vital Signs:
Vital Signs
Temp Pulse Resp BP Pulse Ox
98.1 F 94 18 121/57 93
03/28/24 07:00 03/28/24 07:00 03/28/24 07:00 03/28/24 07:00 03/28/24 07:00
I&O
03/27/24 03/28/24 03/29/24
06:59 06:59 06:59
Intake Total 1200 / 1200
Output Total 900 / 900 890 / 890
Balance 300 / 300 -890 / -890
Review of Systems
-
History Source: Patient and Family (reviewed with Paola wynn)
Constitutional: Denies Fever
EENT: Reports No Symptoms Reported
Respiratory: Reports No Symptoms
Cardiac: Reports No Symptoms; Denies Chest Pain
Abdomen/GI: Reports Abdominal Pain (post op incisional pain)
Genitourinary: Reports No Symptoms
Physical Exam
-
General: Well Developed, Well Nourished and No Apparent Distress
HEENT: Normocephalic, Atraumatic and Moist Mucous Membranes
Respiratory: Clear to Auscultation; Negative Wheezes, Rales or Rhonchi
Cardiac: Regular Rhythm, S1/S2 and Tachycardic (sinus tachycardia on monitor yesterday, currently HR in low 90's)
GI: Soft, Nondistended and Tender
Musculoskeletal: No Clubbing, No Cyanosis and No Edema
Neuro: Awake, Alert and Oriented
--- NOTE | 2024-03-28 14:51 | CM ---
Patient from [facility] with Hx dementia who is s/p robotic incisional hernia repair. Room air. PT/OT recommend skilled rehab.
Spoke with Romeo, Nursing Final Inspector Shuttle, [facility] (cell [phone]); they are able to accept the patient today. The for report [phone], fax [phone]. They need the med list faxed by 3pm before pharmacy closes and patient needs to
arrive by 6pm - she was informed of 2:30pm transport time.
Met with patient and spoke with her daughter in law Paola by phone; both agree to d/c today to [facility] by ambulance. Patient forgetful about d/c plans and CM repeated the plan to her 3x and then she seemed to understand that her DIL was not
taking her to SNF today. IMM completed.
Plan [facility] today by ambulance.
--- NOTE | 2024-03-28 16:35 | W.DS.TRANS ---
DC Summary - Air Cargo Specialist
-
Discharge Instructions:
Discharge Diagnosis/Procedures Small Bowel Obstruction
Diet As tolerated
Activity No strenuous activity
Driving Restrictions No driving
Bathing Restrictions OK to Shower
Instructions:
Stand-Alone Forms:
Changes to Home Medications: Yes
Discharge Medications:
DC Medications w/original date entered in [employer]
carboxymethyl 0.5 %-glycerin 1 %-polysorb 80 0.5 %-PF eye dropperette (Refresh Optive Santy-3 (PF)) 2 drp BOTH EYES BID Eye condition 10/12/21
cetirizine 10 mg tablet 10 mg PO DAILY Allergies 10/12/21
estradiol 10 mcg vaginal insert 10 mcg vaginal WESA Hormonal agent 10/12/21
losartan 25 mg tablet 25 mg PO DAILY Blood Pressure 10/12/21
nitrofurantoin macrocrystal 100 mg capsule 100 mg PO DAILY Urinary Issue 10/12/21
rosuvastatin 5 mg tablet 5 mg PO HS High Cholesterol 10/12/21
sennosides 8.6 mg tablet (Senokot) 8.6 mg PO QPM Constipation 10/12/21
acetaminophen 500 mg tablet 1,000 mg PO TID MILD PAIN 08/29/22
donepezil 5 mg tablet 5 mg PO HS dementia 08/29/22
fluoride (sodium) 1.1 % dental paste (PreviDent 5000 Dry Mouth) 1 applic dental BID dental care 08/29/22
pantoprazole 20 mg tablet,delayed release 20 mg PO DAILY Gastrointestinal Issue 08/29/22
docusate sodium 100 mg capsule 100 mg PO BIDPRN PRN constipation 10/18/23
memantine 10 mg tablet 10 mg PO BID Neurological Condition 10/18/23
mirtazapine 45 mg tablet 45 mg PO HS Depression 10/18/23
multivitamin with minerals-folic acid 120 mcg chewable tablet (Women's Multivitamin Gummies) 2 tab PO DAILY Supplement 10/18/23
oxybutynin chloride 5 mg tablet 5 mg PO BID Urinary Issue 10/18/23
meclizine 12.5 mg tablet 12.5 mg PO TIDPRN PRN DIZZINESS 03/22/24
melatonin 5 mg tablet 5 mg PO HS Sleep 03/22/24
polyethylene glycol 3350 17 gram oral powder packet (Miralax) 17 g PO DAILY Constipation 03/22/24
alprazolam 0.5 mg tablet 0.5 mg PO HS #12 tabs 03/28/24
tramadol 50 mg tablet 50 mg PO Q6HPRN PRN moderate pain #12 tabs 03/28/24
Home Medication Changes
eszopiclone stopped
Pending Results: No
== END 2024-03-28 15:24 | DRG 353 ==
LOC: 1 ACUTE 22:27
PROVIDERS: ADMITTING PHYSICIAN Internal Medicine; ATTENDING PHYSICIAN Internal Medicine; CONSULT PHYSICIAN Internal Medicine Cardiovascular Disease; CONSULT PHYSICIAN Surgery; EMERGENCY PHYSICIAN Emergency Medicine; OTHER PHYSICIAN Psychiatry & Neurology Neurology
PROC: 8E0W4CZ Robotic Assisted Procedure of Trunk Region, Percutaneous Endoscopic Approach (ICD-10-PCS; 2024-03-23)
PROC: 0WUF4JZ Supplement Abdominal Wall with Synthetic Substitute, Percutaneous Endoscopic Approach (ICD-10-PCS; 2024-03-23)
DX: K43.2 Incisional hernia without obstruction or gangrene (principal); G92.8 Other toxic encephalopathy; F05 Delirium due to known physiological condition; E87.1 Hypo-osmolality and hyponatremia; G30.9 Alzheimer's disease, unspecified; F02.80 Dementia in other diseases classified elsewhere, unspecified severity, without behavioral disturbance, psychotic disturbance, mood disturbance, and anxiety; H49.21 Sixth [abducent] nerve palsy, right eye; R00.0 Tachycardia, unspecified
CPT/HCPCS: 70450; 70551; 71046; 71275; 74177; 80048; 80053; 80061; 81003; 81015; 82607; 83036; 83605; 83690; 83735; 84439; 84443; 85025; 85027; 85652; 86041; 86140; 86850; 86900; 86901; 87086; 93005; 97116; 97163; 97167; 99285; C1713; Q9967

== ENCOUNTER → 2024-04-28 12:07 | Outpatient (REF) | payer MEDICARE, OTHER, SELFPAY | LOC: RAD 12:07 | PROVIDERS: ATTENDING PHYSICIAN Surgery | DX: K43.0 Incisional hernia with obstruction, without gangrene (principal) | CPT/HCPCS: 74177; Q9967 ==

== ENCOUNTER 2024-08-07 09:30 | Inpatient (IN) | payer MEDICARE, OTHER, SELFPAY ==
[2024-08-05 17:08] VITALS: BP 157/95
[2024-08-05 18:03] VITALS: BMI 29.1
[2024-08-05 19:38] LABS: Hematocrit 43.7 % (37.0-47.0); Hemoglobin 14.9 g/dL (12.0-16.0); Mean Corp Hgb Conc. 34.1 g/dL (33.0-37.0); Mean Corpuscular Hgb 31.4 pg (27.0-31.0); Mean Platelet Volume 9.5 fL (7.4-10.4); Platelet Count 191 10^3/uL (130-400); Red Blood Cell Count 4.75 10^6/uL (4.20-5.40); Red Cell Dist. Width 13.1 % (11.5-14.5); White Blood Cell Count 5.2 10^3/uL (4.8-10.8)
[2024-08-05 19:54] LABS: INR 0.96; PT 13.3 Sec (11.4-14.6)
[2024-08-05 19:58] LABS: ALT (SGPT) 37 U/L (0-35); AST (SGOT) 53 U/L (14-36); Albumin 4.6 g/dl (3.5-5.0); Alkaline Phosphatase 60 U/L (38-126); Blood Urea Nitrogen 11 mg/dl (7-17); Calcium 9.6 mg/dl (8.4-10.2); Carbon Dioxide 28 mmol/L (22-30); Chloride 103 mmol/L (98-107); Estimated Creatinine Clearance 59 ml/min; Glucose 114 mg/dl (70-99); Potassium 4.6 mmol/L (3.5-5.1); Sodium 137 mmol/L (135-145); Total Bilirubin 0.7 mg/dl (0.2-1.3); Total Protein 7.7 g/dl (6.3-8.2); eGFR > 60.00
--- NOTE | 2024-08-05 20:17 | ED.GENMED ---
History of Present Illness
General
Chief Complaint: Eye Problems
Time Seen by Provider: 08/05/24 18:40
History of Present Illness
History of Present Illness:
83-year-old female presents to the on for 1 to 2 days. States she noticed seeing diplopia while watching TV. Does have history of dementia clear exactly what day this began. Has a prior history of a left-sided 3rd cranial nerve palsy for
approximately 1 to 2 years ago that resolved spontaneously however after prolonged period of time. This was determined to not be due to a CVA. She denies any current headache, extremity paresthesias, or speech deficits.
Past History
Past History
ED Past Medical History: Asthma, HTN, Hypercholesterolemia, Psychiatric (Anxiety, depression), Other (Diverticulitis) and Other (UTI, anemia)
ED Past Surgical History: Bowel resection, Gynecological (Hysterectomy), Orthopedic (left hip, right elbow), Urological and Other (Adan procedure for perforated colon, cataracts)
Social History
Tobacco: Non-smoker
Alcohol: None
Drug: None
Personal:
Living: assisted living
Employment: Retired
Family History
Family History: Other
Review of Systems
Review of Systems
Allergies reviewed?: Yes
All Other Systems: ROS reviewed and negative except as documented in HPI and ROS
Phy Exam
Physical Exam
Physical Exam:
GEN: Well appearing, NAD, WDWN
HEENT: Oral mucosa moist, no scleral icterus, no nasal congestion
Cardiac: Regular rate
Lung: No respiratory distress, no tachypnea
MSK: No gross deformity or injuries
Skin: Good color, no pallor or jaundice, no rashes
Neuro: AO x3; right upper lid ptosis, superior gaze deficit on the right unable to be overcome, remainder of extraocular motion is intact, pupillary response normal,. BUE strength 5/5 in all wright, sensation intact and symmetric. BLE strength 5/5
in all wright, sensation intact and symmetric
Psych: Calm, cooperative
Course
Orders/Labs/Results
Orders:
Orders
08/05/24 18:09
CT Head W/o Iv Contrast Urgent
Comment:
Reason For Exam: Unable to open right eye
08/05/24 18:57
Electrocardiogram (*1) Urgent
Reason for Study: TIA/Stroke
EKG- Treatment ONCE
08/05/24 19:10
Complete Blood Count/No Diff Urgent
Comprehensive Metabolic Panel Urgent
Creatine Phosphokinase Urgent
Comment: ADD ON
Glycohemoglobin (HgbA1c) Urgent
Prothrombin Time Urgent
08/05/24 20:14
Aspirin 325 mg PO NOW STA
Clopidogrel Bisulfate [Plavix] 300 mg PO NOW STA
08/05/24 20:55
Admit/Transfer Patient As Directed
Co-Sign Provider:
Level of Care: Observation services
Assign to:: Telemetry
Physician / Group: kavita
Diagnosis: CVA
Reason for Telemetry: CVA/TIA
Date to Stop Telemetry: 08/08/24
Time to Stop Telemetry: 11:00
PRN Pain Medication Management As Directed
May give lesser potent ordered pain med per pt: Yes
preference::
Protocol:: Medication orders for pain may be administered in a
manner that supports deferring to patient preference
when the pt is:
- Requesting an ordered lesser potent pain medication.
Least to most potent pain medications are defined
as: acetaminophen < NSAID < tramadol < opioids
(morphine, oxycodone, hydromorphone).
- Requesting a lesser dose of the same medication IF
ORDERED.
- Requesting a less intrusive route of administration
if both routes are prescribed by the provider (PO <
IV).
08/05/24 20:57
Code Status As Directed
Resuscitation Status: Full Code
08/05/24 21:03
Urinalysis Reflex To Culture Routine
Date Specimen was Collected: 08/05/24
Time Specimen was Collected: 21:00
08/05/24 21:54
Acetaminophen [Tylenol/Feverall] 650 mg RECTAL Q4HPRN PRN
Acetaminophen [Tylenol] 650 mg PO Q4HPRN PRN
Memantine HCl [Namenda] 10 mg PO BID
Oxybutynin Chloride [Ditropan] 5 mg PO BID
Sennosides [Senokot] 8.6 mg PO QPM
Tramadol HCl [Ultram] 50 mg PO BID
08/05/24 21:54
Case Management Consult ONCE
Case Management Consult: Discharge Planning
Comment: stroke/tia
DIETARY IP CONSULT Routine
Reason for Consult: stroke/TIA
NEUROLOGY CONSULT Urgent
Consulting Provider: Korey Neal
Was physician already notified: Yes
Changer Fixer Urgent
MR Brain Without Contrast Routine
Comment:
Reason For Exam: stroke/TIA
Recent pill cam endoscopy?: No
Activity As Directed
Activity Level: As Tolerated
Bladder Scan As Directed
Follow Bladder Retention/Intermittent Cath Algorithm?: Yes
PRN if no void in __ hours: 6
Frequency: Per Retention Algorithm
If Bladder Scan Result >: 400
then:: Straight cath
NIH Stroke Scale As Directed
Directions: Per protocol
Comment: every shift and with any change in condition or mental status
Neurological Checks As Directed
Frequency: q4h
Additional Instructions:: q4h x 24h upon admission to the floor, then qshift & with any change in condition
and mental status
Patient Education As Directed
Type: Stroke education packet
Comment: provide to patient and family
Pneumatic Compression Sleeves As Directed
Type: Thigh high
Straight Cath As Directed
Frequency: Per Retention Algorithm
Additional Instructions: straight cath as needed per acute urinary retention algorithm for 24 hrs
Additional Instructions: for bladder scan greater than 400 mL
Vital Signs As Directed
Frequency: Per unit guidelines
Ot Eval And Treat Routine
Pt Eval And Treat Routine
Activity Level: As Tolerated
Speech Therapy Eval & Treat Routine
DX Deep Vein Thrombosis Video Routine
08/05/24 22:00
Alprazolam [Xanax] 0.5 mg PO HS
Donepezil [Aricept] 5 mg PO HS
Melatonin 5 mg PO HS
Mirtazapine [Remeron] 45 mg PO HS
Rosuvastatin Calcium [Crestor] 5 mg PO HS
08/06/24 06:00
Cardiovascular Evaluation IN AM
Comprehensive Metabolic Panel IN AM
08/06/24 08:00
Aspirin Chewable [Low Strength Aspirin] 81 mg PO DAILY
Carboxymethylcellulose [Refresh Celluvisc Gel] 2 drops BOTH EYES BID
Cetirizine HCl [Zyrtec] 10 mg PO DAILY
Clopidogrel Bisulfate [Plavix] 75 mg PO DAILY
Nitrofurantoin Monohydrate [Macrobid] 100 mg PO DAILY
Pantoprazole [Protonix] 20 mg PO DAILY
08/08/24 11:00
DC Protocol for Telemetry ONCE
Abnormal Lab Results
08/05/24
19:10
MCH 31.4 H pg
(27.0-31.0)
Glucose 114 H mg/dl
(70-99)
AST 53 H U/L
(14-36)
ALT 37 H U/L
(0-35)
08/05/24 19:10
08/05/24 19:10
Vital Signs
Initial and Last Documented VS:
Initial Vital Signs
Temp Pulse Resp BP Pulse Ox
98.7 F 74 18 157/95 97
08/05/24 17:08 08/05/24 17:08 08/05/24 17:08 08/05/24 17:08 08/05/24 17:08
Last Documented Vital Signs
Temp Pulse Resp BP Pulse Ox
98.7 F 71 13 157/95 96
08/05/24 17:08 08/05/24 21:30 08/05/24 21:30 08/05/24 17:08 08/05/24 21:30
MDM/Problems Addressed
MDM/Problems Addressed:
Likely a 3rd cranial nerve palsy, most likely ischemic; will admit for further stroke workup
*Critical Care Note
Total Time (30-74mins, 75-104mins- exclusive of procedures): Not Applicable
ED Attending Note
-
Portions of this chart may have been created with voice recognition software.� Occasional wrong word or��sound alike� substitutions may have occurred due to the inherent limitations of voice recognition software.
Discharge Plan
Departure
Patient Disposition: Admit
Date of Disposition: 08/05/24
Time of Disposition: 20:20
Admit to: Med/Surg
Presentation/result/management discussed w/ accepting MD/DO: Hospitalist
Discharge Problem:
Cranial nerve III palsy
Interventions
Interventions:
*Risk Screen - Suicide Last Done: 08/05/24 18:03
*General Assessment Last Done: 08/05/24 18:03
*Neglect/Abuse Screening Last Done: 08/05/24 20:10
*ED COVID-19 Vaccine History Last Done: 08/05/24 20:10
*Nursing Disposition Last Done: 08/05/24 21:46
Discharge Date and Time
Discharge Date/Time: 08/05/24 21:47
[2024-08-05] MEDS: PLAVIX 300 MG PO (20:21)
[2024-08-05] MEDS: ASPIRIN 325 MG PO (20:21)
--- NOTE | 2024-08-05 20:21 | HPS.HSE ---
Family Physician
-
Family Physician: NOT KNOW UNKNOWN - PT DOES
Chief Complaint
-
diplopia
History of Present Illness
83-year-old female with PMH for dementia,HLD, hypothyroidism, BPPV, presents with ptosis for past few days.she complained of pain around her eyelid. she stated some lightheaded. denied fever, chills, chest pain, sob.denied abdominal pain,n,v,d.
denied dysuria or hematuria.
CT head negative for acute findings.
patient received asa and Plavix in ER. admitting for further management.
Medical History
Past Medical History
Past Medical History: Reports Other
Additional Past Medical History:
Fatty liver, hyperlipidemia, hiatal hernia, hypothyroidism, irritable bowel syndrome, sacroiliac dysfunction, tinnitus, benign paroxysmal positional vertigo, paroxysmal A-fib, chronic sinusitis, diverticulitis, bursitis of left hip, vitamin B12
deficiency, osteoarthritis, recurrent cystitis, chronic pain syndrome, insomnia, anxiety, GERD, Alzheimer's, asthma
Past Surgical History: Reports Other
Additional Past Surgical History:
Partial hysterectomy, hip replacement x 2, carpal tunnel, rectocele, bladder repair, cholecystectomy, ex lap sigmoidectomy and end colostomy, Adan reversal, hernia repair, colostomy placement
Social History
Tobacco: Non-smoker
Alcohol: None
Drug: None
Personal: Single
Living: Prison
Family History
Family History: Not pertinent
Allergies / Home Medications
Allergies reflects when Allergies were last updated in [employer].
Home Medications with original date entered in [employer]
Allergy/Medication List:
Allergies
Allergy/AdvReac Type Severity Reaction Status Date / Time
acetaminophen [From Percocet] Allergy Hives Verified 08/05/24 17:05
belladonna alkaloids Allergy Unknown Verified 08/05/24 17:05
ciprofloxacin [From Cipro] Allergy Unknown Verified 08/05/24 17:05
codeine Allergy Unknown Verified 08/05/24 17:05
ezetimibe [From Vytorin] Allergy Unknown Verified 08/05/24 17:05
gabapentin Allergy Unknown Verified 08/05/24 17:05
oxycodone [From Percocet] Allergy Hives Verified 08/05/24 17:05
plecanatide [From Trulance] Allergy Unknown Verified 08/05/24 17:05
propoxyphene Allergy Hives Verified 08/05/24 17:05
[From Darvocet-N]
sertraline Allergy Unknown Verified 08/05/24 17:05
simvastatin [From Vytorin] Allergy Unknown Verified 08/05/24 17:05
Influenza Virus Vaccines AdvReac Unknown Verified 08/05/24 17:05
Home Medications
carboxymethyl 0.5 %-glycerin 1 %-polysorb 80 0.5 %-PF eye dropperette (Refresh Optive Santy-3 (PF)) 2 drp BOTH EYES BID Eye condition 10/12/21
cetirizine 10 mg tablet 10 mg PO DAILY Allergies 10/12/21
estradiol 10 mcg vaginal insert 10 mcg vaginal WESA Hormonal agent 10/12/21
losartan 25 mg tablet 25 mg PO DAILY Blood Pressure 10/12/21
nitrofurantoin macrocrystal 100 mg capsule 100 mg PO DAILY Urinary Issue 10/12/21
rosuvastatin 5 mg tablet 5 mg PO HS High Cholesterol 10/12/21
sennosides 8.6 mg tablet (Senokot) 8.6 mg PO QPM Constipation 10/12/21
acetaminophen 500 mg tablet 1,000 mg PO TID MILD PAIN 08/29/22
donepezil 5 mg tablet 5 mg PO HS dementia 08/29/22
fluoride (sodium) 1.1 % dental paste (PreviDent 5000 Dry Mouth) 1 applic dental BID dental care 08/29/22
pantoprazole 20 mg tablet,delayed release 20 mg PO DAILY Gastrointestinal Issue 08/29/22
docusate sodium 100 mg capsule 100 mg PO BIDPRN PRN constipation 10/18/23
memantine 10 mg tablet 10 mg PO BID Neurological Condition 10/18/23
mirtazapine 45 mg tablet 45 mg PO HS Depression 10/18/23
multivitamin with minerals-folic acid 120 mcg chewable tablet (Women's Multivitamin Gummies) 2 tab PO DAILY Supplement 10/18/23
oxybutynin chloride 5 mg tablet 5 mg PO BID Urinary Issue 10/18/23
melatonin 5 mg tablet 5 mg PO HS Sleep 03/22/24
polyethylene glycol 3350 17 gram oral powder packet (Miralax) 17 g PO DAILY Constipation 03/22/24
alprazolam 0.5 mg tablet 0.5 mg PO HS #12 tabs 03/28/24
bisacodyl 10 mg rectal suppository (Dulcolax (bisacodyl)) 10 mg TN DAILYPRN PRN constipation 08/05/24
dextromethorphan polistirex 30 mg/5 mL oral susp ext.release 12hr 10 ml PO I08PCAP PRN cough 08/05/24
magnesium hydroxide 400 mg/5 mL oral suspension (Milk of Magnesia) 2,400 mg PO DAILYPRN PRN constipation 08/05/24
sodium phosphates 19 gram-7 gram/118 mL enema (Fleet Enema) 118 ml TN DAILYPRN PRN constipation 08/05/24
tramadol 50 mg tablet 50 mg PO BID 08/05/24
Review of Systems
-
Constitutional: Reports No Symptoms
EENT: Reports No Symptoms
Respiratory: Reports No Symptoms
Cardiac: Reports No Symptoms
Abdomen/GI: Reports No Symptoms
: Reports No Symptoms
Musculoskeletal: Reports No Symptoms
Skin: Reports No Symptoms
Neurological: Reports Other (right eye ptosis)
Endocrine: Reports No Symptoms
Hematologic/Lymphatic: Reports No Symptoms
Psych: Reports No Symptoms
Physical Exam
Vital Signs
Vital Signs
Temp Pulse Resp BP Pulse Ox
98.7 F 64 14 157/95 95
08/05/24 17:08 08/05/24 20:00 08/05/24 20:00 08/05/24 17:08 08/05/24 20:00
Physical Exam
General: Well Developed, Well Nourished and No Apparent Distress
HEENT: NormoCephalic, Moist mucous membranes and Atraumatic
Respiratory: Clear
Cardiac: S1/S2 and Regular Rhythm; No Murmur or Rub
GI: Soft, Non Tender, Non Distended and Normal Bowel Sounds; No Organomegaly
Rectal: Deferred by Provider
Musculoskeletal: No Clubbing, No Cyanosis and No Edema
Skin: No Rash
Neuro: Nonfocal/grossly intact and Other (right eye ptosis)
Psych: Calm
Laboratory Results
-
08/05/24 19:10
08/05/24 19:10
Laboratory Results
PT 13.3 Sec (11.4-14.6) 08/05/24 19:10
INR 0.96 08/05/24 19:10
Total Bilirubin 0.7 mg/dl (0.2-1.3) 08/05/24 19:10
AST 53 U/L (14-36) H 08/05/24 19:10
ALT 37 U/L (0-35) H 08/05/24 19:10
Alkaline Phosphatase 60 U/L (38-126) 08/05/24 19:10
Data Reviewed
-
CT Scan: Report Reviewed by me
Lab Data: Labs Reviewed by me
Impression/Plan
-
#ptosis r/o acute CVA
-asa and Plavix
-MRI ordered
-PT/OT
-obtain a1c.lipid profile
-head CT negative for acute findings
-neuro consult
#chronic transaminitis
-ast 53,alt 37
-denied abdominal pain
-ctm
#HTN/HLD
- hold losartan to allow permissive hTN
- statin continued
#Urinary Retention-straigh cath 4-6 times a day
# Hx Recurrent UTI. Afebrile. No leukocytosis
-obtain UA
- Continue prophylactic macrobid and oxybutynin
#GERD
-PPI continued
#Anxiety/Depression
#alzhmiers
-alprazolam continued
-Aricept continued
-melatonin for sleep continued
-Remeron
#Chronic Pain
- tramadol continued
Full code
--- NOTE | 2024-08-05 20:23 | W.PN.UPDATE ---
Update Note
Progress Note Update
Pt seen and examined at bedside. I agree with SUPERVISOR COIL SPRINGS H&P with Attending Attestation as follows:
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
ptosis. Pt states symptoms occurred 'a couple days ago.' Her timeline is limited 2/2 dementia but believes 3-4 days ago. She was 'shocked' the NH did not seek medical attention sooner. Also endorses Right Temporal Headache without hearing changes,
focal weakness, or sensation changes. Denies F/C, CP, palps, sob, cough, abd pain, n/v/d/c, dysuria, calf or leg pain.
ER course: Pt presents BP 157/95 other V.S.S on 2LNC. WBC 5.2K, Hgb 14.9 g/dL. Na 137, BUN/Cr 11/0.7, BG 114, AST/ALT 53/37. INR 0.96. CT brain moderate stable leukomalacia, no acute abnormality.�Case D/W Neurology who recommends DAPT load (�S/P ASA
325 and Plavix 300mg in ER)�and MRI.�
SocHx/FHx/SHx reviewed as per SUPERVISOR COIL [place]INGS note.
Physical Exam
General: Well Developed, Well Nourished, Morbidly Obese
HEENT: NormoCephalic, Moist mucous membranes, Atraumatic, PERRLA and Oxygen
Respiratory: CTAB, no w/r/r.
Cardiac: RRR, +S1/S2, No M/R/G.
GI: Soft, Non Tender, Non Distended and Normal Bowel Sounds
Genito-urinary: No costovertebral tender; No Stearns
Musculoskeletal: No Clubbing, No Cyanosis and Left THR incision well approximated. No TTP.
Neuro:
AO x3; right eye complete ptosis. superior gaze deficit on the right unable to be overcome. Remainder of extraocular motion is intact, pupillary response normal
BUE strength 5/5 in all wright, sensation intact and symmetric. BLE strength 5/5 in all wright, sensation intact and symmetric
Hematologic/Lymphatic: No Lymphadenopathy
Psych: Calm
Assessment and Plan
Stroke Like Symptoms (Diplopia) / Hx 3rd Nerve Palsy
- Unclear duration of symptoms of R Ptosis and Diplopia (3-4 days)
- CT brain moderate stable leukomalacia, no acute abnormality.�
- Case D/W Neurology who recommends DAPT load (�S/P ASA 325 and Plavix 300mg in ER)�and MRI.�
- Stroke protocol. Permissive HTN. neurochecks
- Consult neuro/PT/OT.
HTN - Observing permissive HTN. Holding home losartan. Treat for SBP > 220/120 mmHg
HLD - Check lipids. Continue home statin.
Asthma - Stable on home
GERD - Continue PPI
OAB/Hx Recurrent Cystitis - Check UA. Continue home oxybutnin and prophylactic macrobid.
Alzheimers Dementia / Anxiety - Continue home donepezil, memantine, prn xanax, melatonin, remeron
Diet - Regular
DVT Ppx - SCDs
Code Status - Full Code
[2024-08-05 21:10] LABS: Urine Albumin Negative (Neg - Trace); Urine Bilirubin Negative (Negative); Urine Character Clear (Clear); Urine Color Yellow; Urine Glucose Negative (Negative); Urine Ketone Negative (Negative); Urine Leukocyte Negative (Negative); Urine Nitrite Negative (Negative); Urine Occult Blood Negative (Negative); Urine Urobilinogen Negative (Neg - 1+); Urine pH 6.5 (5.0-9.0)
--- NOTE | 2024-08-05 21:59 | PTCARENOTE ---
Pt arrived onto floor @2159. Pt AAOx3 and able to walk into room with minimal assistance. Pt with no complaints of SOB at this time. Pt oriented to room and call saab; will continue to monitor.
[2024-08-05] MEDS: MELATONIN 5 MG PO (22:34)
[2024-08-05] MEDS: XANAX 0.5 MG PO (22:34)
[2024-08-05 22:35] LABS: Creatine Phosphokinase 173 U/L (30-135)
[2024-08-05] MEDS: CRESTOR 5 MG PO (22:35)
[2024-08-05] MEDS: REMERON 45 MG PO (22:35)
[2024-08-05] MEDS: SENOKOT 8.6 MG PO (22:35)
[2024-08-05] MEDS: NAMENDA 10 MG PO (22:35)
[2024-08-05] MEDS: ULTRAM 50 MG PO (22:36)
[2024-08-05] MEDS: ARICEPT 5 MG PO (22:36)
[2024-08-05] MEDS: DITROPAN 5 MG PO (22:36)
[2024-08-05] MEDS: NSS 1000 IV (22:37)
[2024-08-05 22:59] VITALS: BP 177/90
[2024-08-05 23:01] VITALS: BMI 27.9
[2024-08-06 03:02] VITALS: BP 176/90
[2024-08-06 07:30] VITALS: BP 173/92
--- NOTE | 2024-08-06 07:42 | W.PN.HOSP.TC ---
Today's Communication/Plan
-
See plan
Assessment / Plan
Assessment / Plan
Physical Exam
General: Not in acute distress
HEENT: Normocephalic, Moist mucous membranes
Respiratory: CTAB
Cardiac: RRR, +S1/S2
GI: Soft, Non Tender, Non Distended and Normal Bowel Sounds
Musculoskeletal: No Cyanosis and Left THR incision well approximated. No TTP.
Neuro:
AAO x3; right eye complete ptosis. No mydriasis - pupils appear pinpoint and slowly responsive. Otherwise, cranial nerves are grossly intact.
BUE strength 5/5, sensation grossly intact throughout. BLE strength 5/5, sensation grossly intact and symmetric
Psych: Calm
Assessment/Plan
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
eye ptosis. Pt stated symptoms occurred 'a couple days ago.' Her timeline is limited 2/2 dementia but believes 3-4 days prior to presentation. She was 'shocked' the ID did not seek medical attention sooner. Also endorsed Right Temporal Headache
without hearing changes, focal weakness, or sensation changes. Denied F/C, CP, palps, sob, cough, abd pain, n/v/d/c, dysuria, calf or leg pain.
ER course: Pt presents BP 157/95 other V.S.S on 2LNC. WBC 5.2K, Hgb 14.9 g/dL. Na 137, BUN/Cr 11/0.7, BG 114, AST/ALT 53/37. INR 0.96. CT brain moderate stable leukomalacia, no acute abnormality. Case D/W Neurology who recommended DAPT load ( S/P
ASA 325 and Plavix 300mg in ER) and MRI.
Stroke Like Symptoms (Diplopia) / Hx 3rd Nerve Palsy
- Unclear duration of symptoms of R Ptosis and Diplopia (3-4 days)
- CT brain moderate stable leukomalacia, no acute abnormality.
- Case was discussed around the time of admission with Neurology who recommends DAPT load ( S/P ASA 325 and Plavix 300mg in ER) and MRI.
- This is peripheral third cranial nerve palsy, possibly from ischemia, not from aneurysm since there is no mydriasis
- Neurochecks
- Loading aspirin and Plavix, 21 days of DAPT, increase rosuvastatin to 40
- Okay for MRI but it will not ticket dispenser changer
- Consult neuro/PT/OT.
HTN - Resume home losartan.
HLD - Checkd lipids. Continue home statin (which is being increased).
Asthma - Stable on home
GERD - Continue PPI
OAB/Hx Recurrent Cystitis - Check UA. Continue home oxybutnin and prophylactic macrobid.
Alzheimers Dementia / Anxiety - Continue home donepezil, memantine, prn xanax, melatonin, remeron
Diet - Regular
DVT Ppx - SCDs. Lovenox.
Code Status - Full Code
Anticipated Discharge: Within 24 hours
Subjective/Interval History
-
Date of Service: August 06, 2024
Patient was seen and examined. She reported still with right eyelid droop and headache.
Objective Data
-
Labs:
Laboratory Results
08/05/24 08/06/24
19:10 06:00
PT 13.3
INR 0.96
Sodium 137 Pending
Potassium 4.6 Pending
Chloride 103 Pending
Carbon Dioxide 28 Pending
BUN 11 Pending
Creatinine 0.7 Pending
Glucose 114 H Pending
Calcium 9.6 Pending
Total Bilirubin 0.7 Pending
AST 53 H Pending
ALT 37 H Pending
Alkaline Phosphatase 60 Pending
Vital Signs:
Vital Signs
Temp Pulse Resp BP Pulse Ox
98.5 F 70 20 176/90 95
08/06/24 03:02 08/06/24 03:02 08/06/24 03:02 08/06/24 03:02 08/06/24 03:02
[2024-08-06] MEDS: ULTRAM 50 MG PO ×2 (08:30→19:07)
[2024-08-06] MEDS: LOW STRENGTH ASPIRIN 81 MG PO (08:30)
[2024-08-06] MEDS: DITROPAN 5 MG PO ×2 (08:30→19:07)
[2024-08-06] MEDS: ZYRTEC 10 MG PO (08:30)
[2024-08-06] MEDS: PROTONIX 20 MG PO (08:30)
[2024-08-06] MEDS: NAMENDA 10 MG PO ×2 (08:31→19:07)
[2024-08-06] MEDS: PLAVIX 75 MG PO (08:31)
[2024-08-06] MEDS: REFRESH CELLUVISC GEL 1 DROPS BOTH EYES (08:31)
[2024-08-06] MEDS: MACROBID 100 MG PO (08:31)
--- NOTE | 2024-08-06 09:07 | PTOTSP ---
TRANSPORTATION PLANNER Eval
Oral/pharyngeal swallowing within functional limits to continue oral diet below. Suspect brief coughing w/ liquids when drinking via soda bottle x1 was related to position (i.e., hyperextending head/neck).
No obvious dysarthria or aphasia in conversation. Will initiate full language/cog eval pending MRI of Brain results.
Recommend:
1. Regular, Thin
2. Meds as best tolerated
3. Strategies: upright to 90 degrees, partial supervision/assist w/ set up, small sips/bites, slow rate, reflux precautions
4. Brief dysphagia f/u x1
5. Further language/cog eval pending MRI of Brain results
[2024-08-06 09:17] LABS: Glycohemoglobin (HgbA1c) 5.6 % (4.0-5.6)
[2024-08-06 09:34] VITALS: BP 137/89; PULSE 65; O2SAT 95
[2024-08-06 09:56] LABS: ALT (SGPT) 34 U/L (0-35); AST (SGOT) 49 U/L (14-36); Albumin 4.2 g/dl (3.5-5.0); Alkaline Phosphatase 60 U/L (38-126); Blood Urea Nitrogen 9 mg/dl (7-17); Calcium 8.8 mg/dl (8.4-10.2); Carbon Dioxide 24 mmol/L (22-30); Chloride 107 mmol/L (98-107); Direct Bilirubin 0.1 mg/dl (0.0-0.4); Estimated Creatinine Clearance 67 ml/min; Glucose 114 mg/dl (70-99); HDL Cholesterol 48 mg/dl; LDL Cholesterol, Calculated 83 mg/dl; Potassium 4.1 mmol/L (3.5-5.1); Sodium 139 mmol/L (135-145); Total Bilirubin 0.6 mg/dl (0.2-1.3); Total Cholesterol 164 mg/dl (50-199); Triglyceride 168 mg/dl (10-149); Very Low Density Lipoprotein 33 mg/dl (0-30); eGFR > 60.00
--- NOTE | 2024-08-06 11:27 | CON.NEURO ---
Neuro Assessment/Plan
Assessment
head CT images rev'd, mild to moderate atrophy and microvascular changes
HDL 48, LDL 83
complete 'medical' 3rd nerve palsy affecting the right eye (no vertical/medial gaze, complete ptosis, no mydriasis) would be due to ischemia of the peripheral nerve; without a long tract sign, this would not be a midbrain stroke,
with the complete ptosis and no mydriasis, this is not an aneurysm, no need for angiography
agree with loading aspirin and Plavix, 21 days of DAPT, increase rosuvastatin 10
ok for MRI but it will not change anything
Consultation
Order
Date of Consultation: 08/06/24
Requesting Provider: Marlon Mahan
Reason for Consult: diplopia
Subjective/Objective
Subjective Data
Date of Service: August 06, 2024
Objective Data
Vital Signs
Temp Pulse Resp BP Pulse Ox
37.1 C 67 22 173/92 98
08/06/24 07:30 08/06/24 07:30 08/06/24 07:30 08/06/24 07:30 08/06/24 08:00
Lab Results
08/05/24 19:10
08/06/24 08:04
PT 13.3 Sec (11.4-14.6) 08/05/24 19:10
INR 0.96 08/05/24 19:10
Sodium 139 mmol/L (135-145) 08/06/24 08:04
Potassium 4.1 mmol/L (3.5-5.1) 08/06/24 08:04
BUN 9 mg/dl (7-17) 08/06/24 08:04
Glucose 114 mg/dl (70-99) H 08/06/24 08:04
Calcium 8.8 mg/dl (8.4-10.2) 08/06/24 08:04
LDL Cholesterol, Calc 83 mg/dl 08/06/24 08:04
Patient Allergies
acetaminophen [From Percocet] Allergy (Verified 08/05/24 17:05)
Hives
belladonna alkaloids Allergy (Verified 08/05/24 17:05)
Unknown
ciprofloxacin [From Cipro] Allergy (Verified 08/05/24 17:05)
Unknown
codeine Allergy (Verified 08/05/24 17:05)
Unknown
ezetimibe [From Vytorin] Allergy (Verified 08/05/24 17:05)
Unknown
gabapentin Allergy (Verified 08/05/24 17:05)
Unknown
oxycodone [From Percocet] Allergy (Verified 08/05/24 17:05)
Hives
plecanatide [From Trulance] Allergy (Verified 08/05/24 17:05)
Unknown
propoxyphene [From Darvocet-N] Allergy (Verified 08/05/24 17:05)
Hives
sertraline Allergy (Verified 08/05/24 17:05)
Unknown
simvastatin [From Vytorin] Allergy (Verified 08/05/24 17:05)
Unknown
Influenza Virus Vaccines Adverse Reaction (Verified 08/05/24 17:05)
Unknown
Physical Exam
-
AAOx3, speech clear, language intact
VFF, pupils pinpoint and sluggish; complete 'medical' 3rd nerve palsy with ptosis, no vertical or medial gaze; no mydriasis
face symmetric
full strength b/l UE/LE
Sensation intact to touch
DTR trace/absent
Medications
-
Active Medications
Generic Name Dose Route Start Last Admin
Trade Name Freq PRN Reason Stop Dose Admin
Acetaminophen 650 mg 08/05/24 21:54
Acetaminophen 650 Mg Rectal Suppository RECTAL 09/02/24 21:53
Q4HPRN PRN
GUTIÉRREZ, mild pain, or temp >100.4F
Acetaminophen 650 mg 08/05/24 21:54
Acetaminophen 325 Mg Tablet PO 09/02/24 21:53
Q4HPRN PRN
GUTIÉRREZ, mild pain, or temp >100.4F
Alprazolam 0.5 mg 08/05/24 22:00 08/05/24 22:34
Alprazolam 0.5 Mg Tablet PO 09/02/24 21:59 0.5 mg
HS NOBLE Administration
Aspirin 81 mg 08/06/24 08:00 08/06/24 08:30
Aspirin 81 Mg Chewable Tablet PO 09/03/24 07:59 81 mg
DAILY NOBLE Administration
Carboxymethylcellulose Sodium 2 drops 08/06/24 08:00 08/06/24 08:31
Carboxymethylcellulose Ophth Gel (Celluvisc) Droperette BOTH EYES 09/03/24 07:59 1 drops
BID NOBLE Administration
Cetirizine HCl 10 mg 08/06/24 08:00 08/06/24 08:30
Cetirizine Hcl 10 Mg Tablet PO 09/03/24 07:59 10 mg
DAILY NOBLE Administration
Clopidogrel Bisulfate 75 mg 08/06/24 08:00 08/06/24 08:31
Clopidogrel 75 Mg Tablet PO 09/03/24 07:59 75 mg
DAILY NOBLE Administration
Donepezil HCl 5 mg 08/05/24 22:00 08/05/24 22:36
Donepezil 5 Mg Tablet PO 09/02/24 21:59 5 mg
HS NOBLE Administration
Lorazepam 0.25 mg 08/06/24 09:06
Lorazepam 2 Mg/Ml Vial IV
ONCE PRN PRN
30 minutes before MRI
Melatonin 5 mg 08/05/24 22:00 08/05/24 22:34
Melatonin 5 Mg Tablet PO 09/02/24 21:59 5 mg
HS NOBLE Administration
Memantine 10 mg 08/05/24 21:54 08/06/24 08:31
Memantine 10 Mg Tablet PO 09/02/24 21:53 10 mg
BID NOBLE Administration
Mirtazapine 45 mg 08/05/24 22:00 08/05/24 22:35
Mirtazapine 15 Mg Regular Release Tablet PO 09/02/24 21:59 45 mg
HS NOBLE Administration
Nitrofurantoin Macrocrystals 100 mg 08/06/24 08:00 08/06/24 08:31
Nitrofurantoin Monohydrate 100 Mg Capsule PO 100 mg
DAILY NOBLE Administration
Oxybutynin Chloride 5 mg 08/05/24 21:54 08/06/24 08:30
Oxybutynin 5 Mg Tablet PO 09/02/24 21:53 5 mg
BID NOBLE Administration
Pantoprazole Sodium 20 mg 08/06/24 08:00 08/06/24 08:30
Pantoprazole 20 Mg Delayed Release Tablet PO 09/03/24 07:59 20 mg
DAILY NOBLE Administration
Rosuvastatin Calcium 5 mg 08/05/24 22:00 08/05/24 22:35
Rosuvastatin (Crestor) 5 Mg Tablet PO 09/02/24 21:59 5 mg
HS NOBLE Administration
Sennosides 8.6 mg 08/05/24 21:54 08/05/24 22:35
Sennosides (Senokot) 8.6 Mg Tablet PO 09/02/24 21:53 8.6 mg
QPM NOBLE Administration
Sodium Chloride 0 flush 08/05/24 22:00
Sodium Chloride 0.9% (Flush) Syringe IV 09/02/24 21:59
PER PROTOCOL NOBLE
Sodium Chloride 0.125 ml 08/06/24 09:10
Nss (Pf) 10 Ml Vial For Ativan 0.25 Mg Dose IV
ONCE PRN
LORAZEPAM DILUENT
Tramadol HCl 50 mg 08/05/24 21:54 08/06/24 08:30
Tramadol Hcl 50 Mg Tablet PO 09/02/24 21:53 50 mg
BID NOBLE Administration
Home Medications
�Medication �Instructions �Recorded
carboxymethyl 0.5 %-glycerin 1 2 drp BOTH EYES BID Eye condition 10/12/21
%-polysorb 80 0.5 %-PF eye
dropperette (Refresh Optive Santy-3
(PF))
cetirizine 10 mg tablet 10 mg PO DAILY Allergies 10/12/21
estradiol 10 mcg vaginal insert 10 mcg vaginal WESA Hormonal agent 10/12/21
losartan 25 mg tablet 25 mg PO DAILY Blood Pressure 10/12/21
nitrofurantoin macrocrystal 100 mg 100 mg PO DAILY Urinary Issue 10/12/21
capsule
rosuvastatin 5 mg tablet 5 mg PO HS High Cholesterol 10/12/21
sennosides 8.6 mg tablet (Senokot) 8.6 mg PO QPM Constipation 10/12/21
acetaminophen 500 mg tablet 1,000 mg PO TID MILD PAIN 08/29/22
donepezil 5 mg tablet 5 mg PO HS dementia 08/29/22
fluoride (sodium) 1.1 % dental 1 applic dental BID dental care 08/29/22
paste (PreviDent 5000 Dry Mouth)
pantoprazole 20 mg tablet,delayed 20 mg PO DAILY Gastrointestinal 08/29/22
release Issue
docusate sodium 100 mg capsule 100 mg PO BIDPRN PRN constipation 10/18/23
memantine 10 mg tablet 10 mg PO BID Neurological Condition 10/18/23
mirtazapine 45 mg tablet 45 mg PO HS Depression 10/18/23
multivitamin with minerals-folic 2 tab PO DAILY Supplement 10/18/23
acid 120 mcg chewable tablet
(Women's Multivitamin Gummies)
oxybutynin chloride 5 mg tablet 5 mg PO BID Urinary Issue 10/18/23
melatonin 5 mg tablet 5 mg PO HS Sleep 03/22/24
polyethylene glycol 3350 17 gram 17 g PO DAILY Constipation 03/22/24
oral powder packet (Miralax)
alprazolam 0.5 mg tablet 0.5 mg PO HS #12 tabs 03/28/24
bisacodyl 10 mg rectal suppository 10 mg FL DAILYPRN PRN constipation 08/05/24
(Dulcolax (bisacodyl))
dextromethorphan polistirex 30 10 ml PO [id number] PRN cough 08/05/24
mg/5 mL oral susp ext.release 12hr
magnesium hydroxide 400 mg/5 mL 2,400 mg PO DAILYPRN PRN 08/05/24
oral suspension (Milk of Magnesia) constipation
sodium phosphates 19 gram-7 118 ml FL DAILYPRN PRN constipation 08/05/24
gram/118 mL enema (Fleet Enema)
tramadol 50 mg tablet 50 mg PO BID 08/05/24
[2024-08-06 11:30] VITALS: BP 144/83
--- NOTE | 2024-08-06 14:51 | CM ---
senior product development manager reviewed patient's chart and met with patient and patient lives alone at [facility] independent living, patient reports she is independent with adl's and ambulation no dme except for a cane that she uses for long distances.
Patient does not drive. Plan is to home back to her apartment when stable. AGUILAR letter completed.
Plan; Home when stable, no needs.
[2024-08-06] MEDS: ATIVAN 0.25 MG IV (15:15)
[2024-08-06] MEDS: SENOKOT 8.6 MG PO (17:08)
[2024-08-06] MEDS: COZAAR 25 MG PO (17:08)
[2024-08-06] MEDS: LOVENOX 40 MG SC (17:08)
[2024-08-06] MEDS: ZOO CHEWS 2 TABLET PO (17:08)
[2024-08-06] MEDS: REFRESH CELLUVISC GEL 2 DROPS BOTH EYES (19:07)
[2024-08-06 19:59] VITALS: BP 176/93
[2024-08-06] MEDS: XANAX 0.5 MG PO (21:06)
[2024-08-06] MEDS: MELATONIN 5 MG PO (21:06)
[2024-08-06] MEDS: CRESTOR 40 MG PO (21:06)
[2024-08-06] MEDS: REMERON 45 MG PO (21:06)
[2024-08-06] MEDS: ARICEPT 5 MG PO (21:07)
[2024-08-06 23:40] VITALS: BP 157/73
[2024-08-07 03:35] VITALS: BP 183/85
[2024-08-07 07:00] VITALS: BP 164/85
[2024-08-07 07:26] LABS: Hematocrit 41.5 % (37.0-47.0); Hemoglobin 14.2 g/dL (12.0-16.0); Mean Corp Hgb Conc. 34.2 g/dL (33.0-37.0); Mean Corpuscular Hgb 31.1 pg (27.0-31.0); Mean Platelet Volume 9.6 fL (7.4-10.4); Platelet Count 189 10^3/uL (130-400); Red Blood Cell Count 4.56 10^6/uL (4.20-5.40); Red Cell Dist. Width 12.8 % (11.5-14.5); White Blood Cell Count 5.1 10^3/uL (4.8-10.8)
[2024-08-07 08:38] LABS: Blood Urea Nitrogen 9 mg/dl (7-17); Calcium 8.9 mg/dl (8.4-10.2); Carbon Dioxide 25 mmol/L (22-30); Chloride 104 mmol/L (98-107); Estimated Creatinine Clearance 67 ml/min; Glucose 112 mg/dl (70-99); Potassium 4.1 mmol/L (3.5-5.1); Sodium 135 mmol/L (135-145); eGFR > 60.00
[2024-08-07] MEDS: NAMENDA 10 MG PO (10:38)
[2024-08-07] MEDS: DITROPAN 5 MG PO (10:38)
[2024-08-07] MEDS: COZAAR 25 MG PO (10:38)
[2024-08-07] MEDS: PROTONIX 20 MG PO (10:38)
[2024-08-07] MEDS: ULTRAM 50 MG PO (10:38)
[2024-08-07] MEDS: REFRESH CELLUVISC GEL 2 DROPS BOTH EYES (10:39)
[2024-08-07] MEDS: MACROBID 100 MG PO (10:39)
[2024-08-07] MEDS: LOW STRENGTH ASPIRIN 81 MG PO (10:39)
[2024-08-07] MEDS: ZYRTEC 10 MG PO (10:39)
[2024-08-07] MEDS: ZOO CHEWS 2 TABLET PO (10:39)
[2024-08-07] MEDS: PLAVIX 75 MG PO (10:39)
--- NOTE | 2024-08-07 10:55 | W.PN.HOSP.TC ---
Today's Communication/Plan
-
Discharge today
Assessment / Plan
Assessment / Plan
Physical Exam
General: Not in acute distress
HEENT: Normocephalic, Moist mucous membranes
Respiratory: CTAB
Cardiac: RRR, +S1/S2
GI: Soft, Non Tender, Non Distended and Normal Bowel Sounds
Musculoskeletal: No Cyanosis and Left THR incision well approximated. No TTP.
Neuro:
AAO x3; right eye complete ptosis. No mydriasis - pupils appear pinpoint (but right pupil larger than left pupil) and slowly responsive. Otherwise, cranial nerves are grossly intact.
BUE strength 5/5, sensation grossly intact throughout. BLE strength 5/5, sensation grossly intact and symmetric
Psych: Calm
Assessment/Plan
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
eye ptosis. Pt stated symptoms occurred 'a couple days ago.' Her timeline is limited 2/2 dementia but believes 3-4 days prior to presentation. She was 'shocked' the NH did not seek medical attention sooner. Also endorsed Right Temporal Headache
without hearing changes, focal weakness, or sensation changes. Denied F/C, CP, palps, sob, cough, abd pain, n/v/d/c, dysuria, calf or leg pain.
ER course: Pt presents BP 157/95 other V.S.S on 2LNC. WBC 5.2K, Hgb 14.9 g/dL. Na 137, BUN/Cr 11/0.7, BG 114, AST/ALT 53/37. INR 0.96. CT brain moderate stable leukomalacia, no acute abnormality. Case D/W Neurology who recommended DAPT load ( S/P
ASA 325 and Plavix 300mg in ER) and MRI.
Stroke Like Symptoms (Diplopia) / Hx 3rd Nerve Palsy
- Unclear duration of symptoms of R Ptosis and Diplopia (3-4 days)
- CT brain moderate stable leukomalacia, no acute abnormality.
- Case was discussed around the time of admission with Neurology who recommends DAPT load ( S/P ASA 325 and Plavix 300mg in ER) and MRI.
- This is peripheral third cranial nerve palsy, possibly from ischemia, not from aneurysm since there is no mydriasis
- Neurochecks
- Loading aspirin and Plavix, 21 days of DAPT (through August 26, 2024), increase rosuvastatin to 40
- MRI with no acute stroke but with chronic senescent changes and stable small chronic microhemorrhages in the left caudate head and bilateral thalami.
- Consult neuro/PT/OT.
HTN - Continue home losartan.
HLD - Continue home statin (which is being increased).
Asthma - Stable on home
GERD - Continue PPI
OAB/Hx Recurrent Cystitis - Check UA. Continue home oxybutnin and prophylactic macrobid.
Alzheimers Dementia / Anxiety - Continue home donepezil, memantine, prn xanax, melatonin, remeron
Diet - Regular
DVT Prophylaxis - SCDs. Lovenox.
Code Status - Full Code
More than 30 minutes spent in discharge including
Final examination of the patient
Summarizing hospital stay
Instructions for continuing care to all relevant caregivers
Preparation of discharge records, prescriptions, and referral forms
Total time spent (in minutes): 37
Anticipated Discharge: Today
Subjective/Interval History
-
Date of Service: August 07, 2024
Patient was seen and examined. She reported no new symptoms or complaints.
Objective Data
-
Labs:
Laboratory Results
08/07/24
06:50
WBC 5.1
Hgb 14.2
Hct 41.5
Plt Count 189
Sodium 135
Potassium 4.1
Chloride 104
Carbon Dioxide 25
BUN 9
Creatinine 0.6
Glucose 112 H
Calcium 8.9
Vital Signs:
Vital Signs
Temp Pulse Resp BP Pulse Ox
98.3 F 70 18 164/85 93
08/07/24 07:00 08/07/24 07:00 08/07/24 07:00 08/07/24 07:00 08/07/24 07:00
I&O
08/06/24 08/07/24 08/08/24
06:59 06:59 06:59
Intake Total 760 / 760
Balance 760 / 760
[2024-08-07 11:00] VITALS: BP 154/93
[2024-08-07 15:00] VITALS: BP 161/80
--- NOTE | 2024-08-07 15:06 | W.DCSUMMARY ---
Discharge Summary
Discharge Data
Date of Admission: 08/05/24
Date of Discharge: 08/07/24
Total time spent discharging patient (in min): 37
-
Pending Results: No
Hospital Course
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
(reversed) presented with right ptosis and double vision. CT head was negative for acute findings. Patient received Aspirin and Plavix in the emergency room. Neurology was consulted and they recommended Aspirin and Plavix for 21 days, after which
Plavix would be stopped. Patient was also placed on high-intensity statin. Patient, per neurology, had complete 'medical' 3rd nerve palsy affecting the right eye (no vertical/medial gaze, complete ptosis, no mydriasis) which would be due to ischemia
of the peripheral nerve; without a long tract sign, this would not be a midbrain stroke, and with the complete ptosis and no mydriasis, this is not an aneurysm; therefore there was no need for CT angiography. Patient was stable for discharge, and
patient requested to return to her previous mode of living with [facility] Nurse.
Discharge Plan
-
Patient Disposition: Home (Routine Discharge)
Discharge Diagnosis/Procedures: Complete 'medical' 3rd nerve palsy affecting the right eye (no vertical/medial gaze, complete ptosis, no mydriasis) -- suspected from ischemia of the peripheral nerve
Hypertension
Hyperlipidemia
Asthma
GERD
Overactive Bladder/History of Recurrent Cystitis
Alzheimer's Dementia
Anxiety

Brain MRI (as per radiologist's report):
'FINDINGS:
Moderate age-related parenchymal atrophy. T2/FLAIR hyperintense signal in the white matter of the bilateral cerebral hemispheres, most compatible with the changes of moderate chronic microangiopathic ischemia. No mass effect, midline shift, or extra
axial collection. No abnormal signal intensity on diffusion-weighted images. Small foci of susceptibility in the left caudate head and in the bilateral thalami most suggestive of chronic microhemorrhages.
The vascular flow voids at the skull base are unremarkable, as far as visualized.
The paranasal sinuses and mastoids are clear. Bilateral ocular lens implants.
IMPRESSION:
No MRI evidence for an acute infarct. Chronic senescent changes. Stable small chronic microhemorrhages in the left caudate head and bilateral thalami.'

CT Head (as per radiologist's report):
'FINDINGS: There is no evidence of intracranial mass lesion or mass effect, with no midline shift.
There is no evidence of acute intracranial hemorrhage.
Mild to moderate stable atrophy in this 83-year-old patient. Moderate stable leukomalacia.
No CT evidence of a focal area of acute to subacute infarction.
No abnormal extra-axial collection is identified.
The visualized paranasal sinuses appear clear. The mastoid air cells appear clear.
IMPRESSION:
No evidence of acute intracranial abnormality.'
Condition: Fair
Diet: Low Fat, Low Cholesterol, Low Sodium and 2 Gram Sodium
Activity: As tolerated
Driving Restrictions: No driving
Activity Restrictions/Additional Instructions:
You need to follow up with primary care provider who can refill and review your medications.
Referrals:
Etta De La Cruz CRNP [Specified Professional Personl] - in two to three weeks (Hospital follow-up of 3rd cranial nerve ischemia)
UNKNOWN - PT DOES,NOT KNOW [Family Provider] -
Additional Discharge Medication Instructions: Aspirin and Clopidogrel are new medications.
Rosuvastatin dose has been increased.
Estradiol has been stopped for now given your possible stroke affecting your right eye and right eyelid -- ask neurologist outpatient if and when you can continue this.
Ask your primary care provider when you can resume Fleet Enema.
Prescriptions:
New
aspirin 81 mg Tablet,Chewable
81 mg PO DAILY Qty: 30 2RF
clopidogrel 75 mg Tablet
75 mg PO DAILY 19 Days Qty: 19 0RF
Rx Instructions:
First dose should be on 08/08/24
rosuvastatin 40 mg Tablet
40 mg PO HS Qty: 30 2RF
Continued
sennosides [Senokot] 8.6 mg Tablet
8.6 mg PO QPM
cetirizine 10 mg Tablet
10 mg PO DAILY
nitrofurantoin macrocrystal 100 mg Capsule
100 mg PO DAILY
losartan 25 mg Tablet
25 mg PO DAILY
Refresh Optive Santy-3 (PF) 0.5-1-0.5 % Dropperette
2 drp BOTH EYES BID
pantoprazole 20 mg Tablet,Delayed Release (Dr/Ec)
20 mg PO DAILY
fluoride (sodium) [PreviDent 5000 Dry Mouth] 1.1 % Paste
1 applic DENTAL BID
donepezil 5 mg Tablet
5 mg PO HS
docusate sodium 100 mg Capsule
100 mg PO BIDPRN PRN (Reason: constipation)
mirtazapine 45 mg tablet
45 mg PO HS
oxybutynin chloride 5 mg Tablet
5 mg PO BID
memantine 10 mg tablet
10 mg PO BID
multivit with min-folic acid [Women's Multivitamin Gummies] 120 mcg Tablet,Chewable
2 tab PO DAILY
polyethylene glycol 3350 [Miralax] 17 gram Powder In Packet
17 g PO DAILY
melatonin 5 mg Tablet
5 mg PO HS
alprazolam 0.5 mg Tablet
0.5 mg PO HS Qty: 12 0RF
dextromethorphan polistirex 30 mg/5 mL Suspension,Extended Rel 12 Hr
10 ml PO [id number] PRN (Reason: cough)
magnesium hydroxide [Milk of Magnesia] 400 mg/5 mL Suspension
2,400 mg PO DAILYPRN PRN (Reason: constipation)
bisacodyl [Dulcolax (bisacodyl)] 10 mg Suppository
10 mg NC DAILYPRN PRN (Reason: constipation)
tramadol 50 mg tablet
50 mg PO BID
Held
estradiol 10 mcg Insert
10 mcg VAGINAL WESA
Hold Instructions: Resume on 10/23/24. Discuss with neurologist as estrogen can increase risk for stroke -- do not resume taking this medication until you talk with neurologist and your primary care physician.
Fleet Enema 19-7 gram/118 mL Enema
118 ml NC DAILYPRN PRN (Reason: constipation)
Hold Instructions: Resume on 09/04/24. Ask your primary care physician if and when you should resume this medication.
Discontinued
rosuvastatin 5 mg Tablet
5 mg PO HS
acetaminophen 500 mg Tablet
1,000 mg PO TID
Discharge Orders:
Discharge Patient (As Directed); Ordered 08/07/24
Ordered By: Richi Whitaker
Discharge Date and Time
Discharge Date/Time: 08/07/24 17:44
Print Language: EMIRATI
--- NOTE | 2024-08-07 17:00 | CM ---
MD entered order for discharge.
Spoke with pt she lives at [facility].
Pt and dgt requested [facility] . Referral -placed.Lexi notified form [facility].
Pt does not have a ride home.
Dgt [place] [phone] requested van Dgt given Acute care [facility] number to make payment. Transport form completed.
Spoke with Anila At [facility] she is aware pt returning and [facility] order
Pt changed to inpatient . IMM reviewed with pt and dgt . IMM signed on chart.
PLAn Return to [facility] report [phone]
faX [facility] [phone]
[facility] fax [phone]
[2024-08-07] MEDS: LOVENOX 40 MG SC (17:32)
== END 2024-08-07 17:44 | disposition home or self-care (01) | DRG 123 ==
LOC: 4 WEST ACU 09:30
PROVIDERS: Physician Assistant; Registered Nurse; ADMITTING PHYSICIAN Internal Medicine; ATTENDING PHYSICIAN Hospitalist; CONSULT PHYSICIAN Psychiatry & Neurology Clinical Neurophysiology; EMERGENCY PHYSICIAN Emergency Medicine
DX: H49.01 Third [oculomotor] nerve palsy, right eye (principal); F02.818 Dementia in other diseases classified elsewhere, unspecified severity, with other behavioral disturbance; F02.84 Dementia in other diseases classified elsewhere, unspecified severity, with anxiety; F02.83 Dementia in other diseases classified elsewhere, unspecified severity, with mood disturbance; H53.2 Diplopia; D64.9 Anemia, unspecified; E78.00 Pure hypercholesterolemia, unspecified; F32.A Depression, unspecified; I10 Essential (primary) hypertension; J45.909 Unspecified asthma, uncomplicated; R33.9 Retention of urine, unspecified; G30.9 Alzheimer's disease, unspecified; H02.401 Unspecified ptosis of right eyelid; K21.9 Gastro-esophageal reflux disease without esophagitis; N32.81 Overactive bladder; E03.9 Hypothyroidism, unspecified; H81.10 Benign paroxysmal vertigo, unspecified ear; K76.0 Fatty (change of) liver, not elsewhere classified; K58.9 Irritable bowel syndrome, unspecified; K44.9 Diaphragmatic hernia without obstruction or gangrene; J32.9 Chronic sinusitis, unspecified; I48.0 Paroxysmal atrial fibrillation; G89.4 Chronic pain syndrome; G47.00 Insomnia, unspecified; E53.8 Deficiency of other specified B group vitamins; Z60.2 Problems related to living alone; Z96.1 Presence of intraocular lens; Z90.711 Acquired absence of uterus with remaining cervical stump; Z90.49 Acquired absence of other specified parts of digestive tract; Z88.6 Allergy status to analgesic agent; Z88.5 Allergy status to narcotic agent; Z88.7 Allergy status to serum and vaccine; Z88.8 Allergy status to other drugs, medicaments and biological substances; Z87.440 Personal history of urinary (tract) infections
CPT/HCPCS: 70450; 70551; 80048; 80053; 80061; 81003; 82248; 82550; 83036; 85027; 85610; 87070; 92610; 93005; 97162; 97166; 99285